=== PATIENT | female | born 1965 | race Caucasian/White ===

== ENCOUNTER 2022-09-16 12:58 | Outpatient (OUT) | payer OTHER, SELFPAY ==
--- NOTE | 2022-09-16 13:01 | MM_ITS ---
Patient: NANI ALEX Exam Date: 09/16/2022 : 1965 Gender:F Ordering : DR Rachele Payton M.D. Admission #: [id number] Family : Order #: [id number] CLICK HERE TO VIEW EXAM RADIOLOGY REPORT PROCEDURE: MM TOMOSYNTHESIS SCREENING BI COMPARISON: MG MAMM SCREEN 3D JAN CAD, 08/01/2021. MG MAMM SCREEN JAN W CAD, 12/29/2019. MG MAMM LT DIAG FU, 11/16/2018. MG MAMM JAN SCRN W CAD DIG, 08/20/2012. INDICATIONS: Screening Calculator Name NCI Breast Cancer Risk Assessment Tool 5 Year Breast Cancer Risk 2.90% Lifetime Breast Cancer Risk 15.10% Personal Breast Cancer No Personal Ovarian Cancer No Treatments None Family Cancers Niece with breast cancer at age 22; Mother with breast cancer at age 55; Niece with breast cancer at age 33; Grandmother-maternal with breast cancer at age 30; Aunt-maternal with breast cancer at age 40; Mother with ovarian cancer at age 68; Mother with kidney cancer at age 48. LOCATION: [facility] BREAST COMPOSITION: Scattered areas fibroglandular density. FINDINGS: DIAGNOSTIC CATEGORY 2--BENIGN FINDING: RIGHT BREAST: No significant suspicious finding. No significant change has occurred. LEFT BREAST: No significant suspicious finding. Stable benign-appearing lymph node anterior lower-inner quadrant. No significant change has occurred. RECOMMENDATIONS: ROUTINE MAMMOGRAM AND CLINICAL EVALUATION IN 12 MONTHS. PLEASE NOTE: A NORMAL MAMMOGRAM DOES NOT EXCLUDE THE POSSIBILITY OF BREAST CANCER. A CLINICALLY SUSPICIOUS PALPABLE LUMP SHOULD BE BIOPSIED. Dictated by: Ross Purvis M.D. on 09/17/2022 at 13:46 Approved by: Ross Purvis M.D. on 09/17/2022 at 13:57
== END 2022-09-16 12:59 | disposition home or self-care (01) ==
LOC: MAMMO 12:58
PROVIDERS: PCP Family Medicine; Visit Provider Family Medicine
DX: Z12.31 Encounter for screening mammogram for malignant neoplasm of breast (principal); Z80.3 Family history of malignant neoplasm of breast
CPT/HCPCS: 77063; 77067

== ENCOUNTER 2022-11-16 14:10 | Emergency (ER) | payer OTHER, SELFPAY ==
[2022-11-16 14:16] VITALS: BP 178/96; PULSE 107; RESP 18; TEMP 36.7; O2SAT 98; BMI 39.2
--- NOTE | 2022-11-16 14:34 | ED.FEMALEGU1 ---
HPI - Female Genitourinary General Chief complaint: Urogenital-Female Stated complaint: UTI-TROUBLE URINATING Time Seen by Provider: 11/16/22 14:28 Source: patient Mode of arrival: walk-in History of Present Illness HPI Narrative: 57-year-old female presents for frequency of urination. She's had this for a few days and she's been drinking great amount of water. She states after she urinates she feels like she has to urinate again shortly thereafter. No back pain or gross hematuria or dysuria. No fever vomiting or complaints of abdominal pain. She's never had a urinary tract infection. Related Data Previous Rx's Medication Instructions Recorded nitrofurantoin 100 mg PO BID 7 days #14 caps 11/16/22 monohydrate/macrocrystals 100 mg capsule (Macrobid) Allergies Allergy/AdvReac Type Severity Reaction Status Date / Time No Known Drug Allergies Allergy Verified 11/16/22 14:16 Review of Systems ROS Narrative review of systems Genitourinary Reports: urinary frequency Exam Narrative Exam Narrative: Nurses note and vital signs reviewed and patient is not hypoxic. General: The patient appears well and in no apparent distress. Patient is resting comfortably on cart. Skin: Warm, dry, no pallor noted. There is no rash noted. Head: Normocephalic, atraumatic Eye: Normal conjunctiva, no drainage Ears, Nose, Mouth, and Throat: oral mucosa is moist. Nares patent. Cardiovascular: Regular Rate and Rhythm Respiratory: Patient is in no distress, no accessory muscle use, lungs are clear to auscultation, no wheezing, rales or rhonchi Back: non-tender GI: often nontender Musculoskeletal: The patient has no evidence of calf tenderness, no pitting edema, symmetrical pulses noted bilaterally Neurological: A&O, normal speech Psychiatric: Cooperative Constitutional Vital Signs, click to edit/add: Last Vital Signs Temp 98.1 F 11/16/22 14:16 Pulse 107 H 11/16/22 14:16 Resp 18 11/16/22 14:16 BP 178/96 H 11/16/22 14:16 Pulse Ox 98 11/16/22 14:16 O2 Del Method Room Air 11/16/22 14:16 Course Vital Signs Vital signs: Vital Signs Temperature 98.1 F 11/16/22 14:16 Pulse Rate 107 H 11/16/22 14:16 Respiratory Rate 18 11/16/22 14:16 Blood Pressure 178/96 H 11/16/22 14:16 Pulse Oximetry 98 11/16/22 14:16 Oxygen Delivery Method Room Air 11/16/22 14:16 Temperature 98.1 F 11/16/22 14:16 Pulse Rate 107 H 11/16/22 14:16 Respiratory Rate 18 11/16/22 14:16 Blood Pressure 178/96 H 11/16/22 14:16 Pulse Oximetry 98 11/16/22 14:16 Oxygen Delivery Method Room Air 11/16/22 14:16 MDM - Female Genitourinary MDM Narrative Medical decision making narrative: urinalysis shows presence of urinary tract infection. Treatment diagnosis and follow-up were discussed with the patient. Lab Data Attestation: I reviewed the patient's lab results. Labs: Lab Results 11/16/22 Range/Units 14:25 Urine Color Lt. yellow (YELLOW) Urine Clarity Slightly cloudy A (CLEAR) Urine pH 5.5 (5.0-9.0) Ur Specific [place] 1.020 (1.005-1.025) Urine Protein Negative (NEG/TRACE) mg/dL Urine Glucose (UA) Negative (NEGATIVE) mg/dL Urine Ketones Negative (NEGATIVE) mg/dL Urine Occult Blood Large A (NEGATIVE) Urine Nitrite Negative (NEGATIVE) Urine Bilirubin Negative (NEGATIVE) Urine Urobilinogen 0.2 (0.2-1.0) EU/dL Ur Leukocyte Esterase Large A (NEGATIVE) Urine RBC 2-5 A (0-2) #/HPF Urine WBC 10-20 A (NONE SEEN) #/HPF Ur Squamous Epith Cells Few A (NONE/RARE) #/LPF Urine Crystals None seen (None Seen) #/HPF Urine Bacteria Small A (NONE SEEN) #/HPF Urine Casts None seen (NONE SEEN) #/LPF Urine Mucus None seen (NONE SEEN) Ur Culture Indicated? Yes Discharge Plan Discharge Chief Complaint: Urogenital-Female Clinical Impression: Urinary tract infection Patient Disposition: Home, Self-Care Time of Disposition Decision: 14:59 Condition: Good Mode of Transportation: Private Vehicle Prescriptions / Home Meds: New nitrofurantoin monohyd/m-cryst [Macrobid] 100 mg capsule 100 mg PO BID 7 Days Qty: 14 0RF Rx Instructions: must administer with a meal/food Instructions: Urinary Tract Infection in Women (ED) Stand Alone Forms: Portal Instructions Referrals: Rachele Payton MD [Primary Care Provider] - 1 week
[2022-11-16 14:45] LABS: Bilirubin Urine NEGATIVE (NEGATIVE); Blood Urine LARGE (NEGATIVE); Color Urine LT. YELLOW (YELLOW); Glucose Urine UA NEGATIVE (NEGATIVE); Ketones Urine NEGATIVE (NEGATIVE); Leukocyte Esterase Urine LARGE (NEGATIVE); Nitrite Urine NEGATIVE (NEGATIVE); Protein Urine NEGATIVE (NEG/TRACE); Urobilinogen Urine 0.2 EU/dL (0.2-1.0); pH Urine 5.5 (5.0-9.0)
[2022-11-16 14:52] LABS: Clarity Urine SLIGHTLY CLOUDY (CLEAR)
[2022-11-16 14:55] LABS: Bacteria Urine SMALL #/HPF (NONE SEEN); Cast Seen? NONE SEEN #/LPF (NONE SEEN); Crystals Seen? None Seen #/HPF (None Seen); Mucus Urine NONE SEEN (NONE SEEN); Squamous Epithelial Cell Urine FEW #/LPF (NONE/RARE)
[2022-11-16 14:56] LABS: Urine Culture Indicated YES
[2022-11-16 15:25] VITALS: BP 134/96
== END 2022-11-16 15:28 | disposition home or self-care (01) ==
PROVIDERS: Emergency Provider Emergency Medicine; PCP Family Medicine
DX: N39.0 Urinary tract infection, site not specified (principal)
CPT/HCPCS: 51798; 81001; 87086; 99283

== ENCOUNTER 2023-02-14 07:31 | Outpatient (OUT) | payer OTHER, SELFPAY ==
[2023-02-14 08:23] LABS: Thyroid Stimulating Hormone 2.634 uIU/mL (0.358-3.740)
[2023-02-14 09:03] LABS: Free T4 0.92 ng/dL (0.76-1.46)
== END 2023-02-14 07:32 | disposition home or self-care (01) ==
LOC: LAB 07:33
PROVIDERS: PCP Family Medicine; Visit Provider Family Medicine
DX: E03.9 Hypothyroidism, unspecified (principal)
CPT/HCPCS: 36415; 84439; 84443

== ENCOUNTER 2023-09-18 09:45 | Outpatient (OUT) | payer OTHER, SELFPAY ==
--- OUTSIDE RECORDS SUMMARY | 2023-09-18 09:51 | XMS_ITS | CCD ---
Author Organization [facility] Team Providers Care Horse Identifier Name Role Phone Jonas Aquino Unavailable JONAS AQUINO Admitting Unavailable JONAS AQUINO Attending Unavailable JAZMYN, DR RACHELE Bolaños Primary Care Unavailable Estuardo, DR Rea Consulting Unavailable JAZMYN, DR RACHELE Bolaños Admitting Unavailable JAZMYN, DR RACHELE Bolaños Primary Care Unavailable JAZMYN, DR RACHELE Bolaños Attending Unavailable JAZMYN, DR RACHELE Bolaños Consulting Unavailable Rachele Payton MD Rachele Payton Primary Care Provider DO Gino Sheth Attending Provider [phone] Gino Sheth Admitting Unavailable Gino Sheth Attending Unavailable Rachele Payton Primary Care Unavailable Jonas Aquino Admitting Unavailable Jonas Aquino Attending Unavailable Rachele Payton Primary Care Unavailable Allergies Allergy Classification Reported Allergen(s) Allergy Type Date of Onset Reaction(s) Facility (1 source) Triamcinolone Drug Allergy 12-31-19 15 [facility] Repository (11 sources) Triamcinolone Drug Allergy Unknown [facility] Other (6 sources) patient allergy list reviewed by nurse or physicia Propensity to adverse reactions 02-14-20 16 Comment:Done [facility] Other (6 sources) Allergies Reconciled Propensity to adverse reactions Unknown [facility] Other Medications Current Medications Medication Drug Class(es) Dates Sig (Normalized) Sig (Original) [id number] 60 actuat albuterol 0.09 mg/actuat metered dose inhaler (6 sources) beta2-Adrenergic Agonist Start: 01-27-2023 take 2 puff(s) by inhalation every four hours as needed Albuterol Sulfate HFA 108 (90 Base) MCG/ACT 2 puff Inhalation every 4 hrs prn Jan, Active Start: 01-27-2023 take 2 puff(s) by in halation every four hours as needed Albuterol Sulfate HFA 108 (90 Base) MCG/ACT 2 puff Inhalation every 4 hrs prn Jan, Active fexofenadine (1 source) Histamine-1 Receptor Antagonist Oumou Active 12 hr fexofenadine hydrochloride 60 mg / pseudoephedrine hydrochloride 120 mg extended release oral tablet (5 sources) alpha-Adrenergic Agonist, Histamine-1 Receptor Antagonist take 1 tablet by mouth every twelve hours Oumou-D Allergy & Congestion 60-120 MG 1 tablet as needed Orally Twice a day Active levothyroxine sodium 0.075 mg oral tablet (12 sources) l-Thyroxine take 1 tablet by mouth once daily in the morning Synthroid 75 MCG 1 tablet in the morning on an empty stomach Orally Once a day for 90 days Active take 1 tablet by adilene th once daily in the morning Synthroid 25 MCG 1 tablet in the morning on an empty stomach Orally Once a day for 90 days Active take 1 tablet by adilene th once daily in the morning Synthroid 25 MCG 1 tablet in the morning on an empty stomach Orally Once a day Active meloxicam 7.5 mg oral tablet (7 sources) Nonsteroidal Anti-inflammatory Drug Start: 07-25-2021 take 1 tablet by mouth every twenty-four hours Meloxicam 7.5 MG 1 tablet Orally Once a day for 30 day(s) Jul, Active Meloxicam 15 MG 1 tablet prn Active omeprazole 40 mg delayed release oral capsule (5 sources) Proton Pump Inhibitor Start: 04-15-2022 take 1 capsule by mouth once daily Omeprazole 40 MG 1 capsule 30 minutes before morning meal Orally Once a day for 30 days Mar, Active Completed/Discontinued Medications Medication Drug Class(es) Dates Sig (Normalized) Sig (Original) triamcinolone acetonide 40 mg/ml injectable suspension (20 sources) Corticosteroid Start: 07-25-2021 Kenalog-40 Jul, 40 mg Problems Active Problems Problem Classification Problem Date Documented Date Episodic/Chronic Esophageal disorders (12 sources) Gastroesophageal reflux disease without esophagitis; Translations: [Gastro-esophageal reflux disease without esophagitis] Chronic Osteoarthritis (17 sources) Primary gonarthrosis, bilateral; Translations: [Bilateral primary osteoarthritis of knee] Onset: 07-25-2021 Resolved: 07-25-2021 Chronic Other bone disease and musculoskeletal deformities (6 sources) Chondromalacia; Translations: [Chondromalacia, right knee] Episodic Other circulatory disease (6 sources) Elevated blood-pressure reading without diagnosis of hypertension; Translations: [Elevated blood-pressure reading, without diagnosis of hypertension] Episodic Other circulatory disease (1 source) Elevated blood-pressure reading, without diagnosis of hypertension Episodic Other nervous system disorders (6 sources) Carpal tunnel syndrome; Translations: [Carpal tunnel syndrome] Onset: 07-04-2014 Chronic Other non-traumatic joint disorders (2 sources) Pain in right knee; Translations: [PAIN IN RIGHT KNEE] Onset: 07-25-2021 Resolved: 07-25-2021 Episodic Other non-traumatic joint disorders (2 sources) Pain in left knee; Translations: [PAIN IN LEFT KNEE] Onset: 07-25-2021 Resolved: 07-25-2021 Episodic Other non-traumatic joint disorders (20 sources) Arthralgia of the lower leg; Translations: [Pain in left knee] Onset: 12-12-2014 Episodic Other nutritional; endocrine; and metabolic disorders (18 sources) Obesity; Translations: [Other obesity due to excess calories] Onset: 12-12-2014 Chronic Other nutritional; endocrine; and metabolic disorders (12 sources) Body mass index 30+ - obesity; Translations: [Body mass index (BMI) 39.0-39.9, adult] Chronic Other nutritional; endocrine; and metabolic disorders (1 source) Other obesity due to excess calories Onset: 07-25-2021 Resolved: 07-25-2021 Chronic Other nutritional; endocrine; and metabolic disorders (1 source) Body mass index (BMI) 39.0-39.9, adult Onset: 07-25-2021 Resolved: 07-25-2021 Chronic Other nutritional; endocrine; and metabolic disorders (6 sources) Body mass index 40+ - severely obese; Translations: [Body mass index (BMI) 40.0-44.9, adult] Chronic Other screening for suspected conditions (not mental disorders or infectious disease) (1 source) Encounter for screening mammogram for malignant neoplasm of breast; Translations: [ENC SCR MAMMO MALIG NEOPLASM BREAST] Onset: 08-04-2021 Episodic Other upper respiratory disease (6 sources) Allergic rhinitis; Translations: [Allergic rhinitis, unspecified] Onset: 07-02-2016 Chronic Other upper respiratory disease (1 source) Other diseases of vocal cords Episodic Other upper respiratory disease (1 source) Other diseases of vocal cords; Translations: [Other diseases of vocal cords] Onset: 05-27-2022 Episodic Other upper respiratory infections (6 sources) Chronic maxillary sinusitis; Translations: [Chronic maxillary sinusitis] Onset: 02-14-2016 Chronic Residual codes; unclassified (12 sources) Asymptomatic menopausal state; Translations: [Menopause] Onset: 08-04-2021 Episodic Residual codes; unclassified (1 source) Family history of malignant neoplasm of breast; Translations: [FAMILY HX MALIG NEOPLASM OF BREAST] Onset: 08-04-2021 Episodic Residual codes; unclassified (1 source) Family history of malignant neoplasm of ovary; Translations: [FAM HX MALIGNANT NEOPLASM OVARY] Onset: 08-04-2021 Episodic Residual codes; unclassified (1 source) Family history of malignant neoplasm of kidney; Translations: [FAM HX MALIGNANT NEOPLASM KIDNEY] Onset: 08-04-2021 Episodic Residual codes; unclassified (11 sources) Family history of breast cancer; Translations: [Family history of malignant neoplasm of breast] Episodic Residual codes; unclassified (6 sources) Flushing; Translations: [Flushing] Episodic Residual codes; unclassified (6 sources) Postmenopausal state; Translations: [Asymptomatic menopausal state] Episodic Spondylosis; intervertebral disc disorders; other back problems (6 sources) Low back pain; Translations: [Lumbago] Episodic Thyroid disorders (16 sources) Hypothyroidism, unspecified; Translations: [Hypothyroidism] Onset: 08-04-2021 Chronic Unclassified (1 source) M25.561 - Pain in right knee; Translations: [M25.561 - Pain in right knee] Onset: 07-25-2021 Past or Other Problems Problem Classification Problem Date Documented Da te Episodic/Chronic Other connective tissue disease (6 sources) Disorder of soft tissue; Translations: [Disorders of soft tissue, unspecified] Onset: 10-03-2014 Episodic Other upper respiratory infections (7 sources) Acute laryngitis; Translations: [Acute maxillary sinusitis] Onset: 02-14-2016 Episodic Residual codes; unclassified (6 sources) Edema; Translations: [Edema] Onset: 10-03-2014 Episodic Unclassified (1 source) Chronic cough R05.3 Results Test Name Value Interpretation Reference Range Facility CBC AUTO DIFFon 08-01-2021 BASO # 0.0 103/ul Normal 0.0-0.1 [facility] Comment on above: Performed By: #### C BC #### [facility] [address] [address] [address] Irene Rodriguez Basophils/100 WBC (Bld) 0.3 % Normal 0.2-2.0 [facility] Comment on above: Performed By: #### C BC #### [facility] [address] [address] [address] Irene Rodriguez EO # 0.1 103/ul Normal 0.0-0.7 [facility] Comment on above: Performed By: #### C BC #### [facility] [address] [place] [address] Dr. Irene Rodriguez Eosinophils/100 WBC (Bld) 1.1 % Normal 0.9-7.0 [facility] Comment on above: Performed By: #### C BC #### [facility] [address] [address] [address] Irene Rodriguez Erythrocyte distribution width (RBC) [Ratio] 13.9 % Normal 11.0-15.0 [facility] Comment on above: Performed By: #### C BC #### [facility] [address] [place] [address] Dr. Irene Rodriguez Hematocrit (Bld) [Volume fraction] 46.8 % Normal 36.0-48.0 [facility] Comment on above: Performed By: #### C BC #### [facility] [address] [address] [address] Irene Rodriguez Hemoglobin (Bld) [Mass/Vol] 15.1 g/dL Normal 12.0-16.0 [facility] Comment on above: Performed By: #### C BC #### [facility] [address] [address] [address] Irene Rodriguez IG # 0.17 10e3/ul Critically high 0.00-0.03 [facility] Comment on above: Performed By: #### C BC #### [facility] [address] [place] [address] Dr. Irene Rodriguez IG % 1.3 % Critically high 0.0-0.5 [facility] Comment on above: Performed By: #### C BC #### [facility] [address] [place] [address] Dr. Irene Rodriguez LYMPH # 2.3 103/ul Normal 1.2-3.8 [facility] Comment on above: Performed By: #### C BC #### [facility] [address] [place] [address] Dr. Irene Rodriguez Lymphocytes/100 WBC (Bld) 17.6 % Critically low 20.5-60.0 [facility] Comment on above: Performed By: #### C BC #### [facility] [address] [place] [address] Dr. Irene Rodriguez MANUAL DIFF REQ NO Normal [facility] Comment on above: Performed By: #### C BC #### [facility] [address] [place] [address] Dr. Irene Rodriguez MCH (RBC) [Entitic mass] 28.7 pg Normal 26.7-34.0 [facility] Comment on above: Performed By: #### C BC #### [facility] [address] [place] [address] Dr. Irene Rodriguez MCHC (RBC) [Mass/Vol] 32.3 g/dL Normal 29.9-35.2 [facility] Comment on above: Performed By: #### C BC #### [facility] [address] [place] [address] Dr. Irene Rodriguez MCV (RBC) [Entitic vol] 89.0 fL Normal 81.0-99.0 [facility] Comment on above: Performed By: #### C BC #### [facility] [address] [place] [address] Dr. Irene Rodriguez MONO # 0.6 103/ul Normal 0.3-0.8 [facility] Comment on above: Performed By: #### C BC #### [facility] [id number] [address] Irene Rodriguez Monocytes/100 WBC (Bld) 4.5 % Normal 1.7-12.0 [facility] Comment on above: Performed By: #### C BC #### [facility] [address] [address] [address] Irene Rodriguez NEUT # 9.9 103/ul Critically high 1.4-6.5 [facility] Comment on above: Performed By: #### C BC #### [facility] [address] [address] [address] Irene Rodriguez Neutrophils/100 WBC (Bld) 75.2 % Critically high 43.0-75.0 [facility] Comment on above: Performed By: #### C BC #### [facility] [address] [place] [address] Dr. Irene Rodriguez Platelet mean volume (Bld) [Entitic vol] 10.5 fL Normal 9.5-13.5 [facility] Comment on above: Performed By: #### C BC #### [facility] [address] [place] [address] Dr. Irene Rodriguez PLT 282 103/ul Normal 150-450 [facility] Comment on above: Performed By: #### C BC #### [facility] [address] [place] [address] Dr. Irene Rodriguez RBC 5.26 106/ul Normal 4.20-5.40 [facility] Comment on above: Performed By: #### C BC #### [facility] [address] [place] [address] Dr. Irene Rodriguez WBC 13.2 103/ul Critically high 4.0-11.0 [facility] Comment on above: Performed By: #### C BC #### [facility] [address] [place], [place] [id number] Dr. Irene Rodriguez FREE T4on 08-01-2021 Free T4 [Mass/Vol] 1.09 ng/dL Normal 0.76-1.46 [facility] Comment on above: Performed By: #### F T4 #### [facility] [address] [address] [address] Irene Rodriguez LIPID PROFILEon 08-01-2021 CHOL-HDL RATIO NORM SEE BELOW Normal [facility] Comment on above: Result Comment: 3.3 - 4.4 LOW RISK 4.4 - 7.1 AVERAGE RISK 7.1 - 11.0 MODERATE RISK >11.0 HIGH RISK Performed By: #### L IPID, TSH, CMP #### [facility] [address] [address] [address] Irene Rodriguez Cholesterol [Mass/Vol] 179 mg/dL Normal <=200 [facility] Comment on above: Performed By: #### L IPID, TSH, CMP #### [facility] [address] [place] [address] Dr. Irene Rodriguez Cholesterol in HDL [Mass/Vol] 48 mg/dL Normal 40-60 [facility] Comment on above: Performed By: #### L IPID, TSH, CMP #### [facility] [address] [place] [address] Dr. Irene Rodriguez Cholesterol in LDL [Mass/Vol] 109.2 mg/dL Normal [facility] Comment on above: Performed By: #### L IPID, TSH, CMP #### [facility] [address] [place] [address] Dr. Irene Rodriguez Cholesterol.total/ Cholesterol in HDL [Mass ratio] 3.7 {ratio} Normal [facility] Comment on above: Performed By: #### L IPID, TSH, CMP #### [facility] [address] [place] [address] Dr. Irene Rodriguez HDL NORMAL > or = 60 mg/dl - LOW CARDIOVASCULAR RISK <40 mg/dl - HIGH CARDIOVASCULAR RISK Normal [facility] Comment on above: Performed By: #### L IPID, TSH, CMP #### [facility] [address] [place] [address] Dr. Irene Rodriguez LDL CALC NORMAL SEE BELOW Normal [facility] Comment on above: Result Comment: <100 mg/dl OPTIMAL 100 - 129 mg/dl NEAR OR ABOVE OPTIMAL 130 - 159 mg/dl BORDERLINE HIGH 160 - 189 mg/dl HIGH >190 mg/dl VERY HIGH Performed By: #### L IPID, TSH, CMP #### [facility] [address] [place], [place] [address] Dr. Irene Rodriguez Triglyceride [Mass/Vol] 109 mg/dL Normal <=150 [facility] Comment on above: Performed By: #### L IPID, TSH, CMP #### [facility] [address] [place], [place] [address] Dr. Irene Rodriguez VLDL CALC 21.8 mg/dL Normal [facility] Comment on above: Performed By: #### L IPID, TSH, CMP #### [facility] [address] [place], [place] [address] Dr. Irene Rodriguez MG MAMM SCREEN 3D JAN CADon 08-01-2021 MG MAMM SCREEN 3D JAN CAD Patient: CHRISTINA ALEX Exam Date: 08/01/2021 : 1965 Gender:F Ordering : DR RACHELE PAYTON M.D. Admission #: [id number] Family : Order #: [id number] CLICK HERE TO VIEW EXAM RADIOLOGY REPORT PROCEDURE: MAMMOGRAM SCREENING 3D BILATERAL CAD COMPARISON: MG MAMM LT DIAG FU, 11/16/2018. MG MAMM SCREEN JAN W CAD, 12/29/2019. INDICATIONS: Screening mammography Calculator Name NCI Breast Cancer Risk Assessment Tool 5 Year Breast Cancer Risk 2.80% Lifetime Breast Cancer Risk 15.50% Personal Breast Cancer No Personal Ovarian Cancer No Treatments None Family Cancers Niece with breast cancer at age 22; Mother with breast cancer at age 55; Niece with breast cancer at age 33; Grandmother-maternal with breast cancer at age 30; Aunt-maternal with breast cancer at age 40; Mother with ovarian cancer at age 68; Mother with kidney cancer at age 48. LOCATION: [facility] BREAST COMPOSITION: Scattered areas fibroglandular density. FINDINGS: DIAGNOSTIC CATEGORY 1--NEGATIVE. NO CHANGE FROM COMPARISON ASSESSMENT. Scattered benign-appearing nodules are present. Scattered benign-appearing calcifications are present. Scattered benign-appearing lymph nodes are present. RIGHT BREAST: No significant suspicious finding. LEFT BREAST: No significant suspicious finding. RECOMMENDATIONS: ROUTINE MAMMOGRAM AND CLINICAL EVALUATION IN 12 MONTHS. PLEASE NOTE: A NORMAL MAMMOGRAM DOES NOT EXCLUDE THE POSSIBILITY OF BREAST CANCER. A CLINICALLY SUSPICIOUS PALPABLE LUMP SHOULD BE BIOPSIED. Dictated by: Javed Albarado MD on 08/01/2021 at 10:15 Approved by: Javed Albarado MD on 08/01/2021 at 10:17 Normal [facility] PROF 14(COMP METB)on 022 Albumin [Mass/Vol] 3.1 g/dL Critically low 3.4-5.0 [facility] Comment on above: Performed By: #### L IPID, TSH, CMP #### [facility] [address] [place] [address] Dr. Irene Rodriguez Albumin/Globulin [Mass ratio] 0.8 {ratio} Normal [facility] Comment on above: Performed By: #### L IPID, TSH, CMP #### [facility] [address] [place] [address] Dr. Irene Rodriguez ALP [Catalytic activity/Vol] 92 U/L Normal 46-116 [facility] Comment on above: Performed By: #### L IPID, TSH, CMP #### [facility] [address] [place] [address] Dr. Irene Rodriguez ALT [Catalytic activity/Vol] 22 U/L Normal 14-59 [facility] Comment on above: Performed By: #### L IPID, TSH, CMP #### [facility] [address] [place] [address] Dr. Irene Rodriguez Anion gap [Moles/Vol] 10.3 mmol/L Normal [facility] Comment on above: Performed By: #### L IPID, TSH, CMP #### [facility] [address] [place] [address] Dr. Irene Rodriguez AST [Catalytic activity/Vol] 9 U/L Critically low 15-37 [facility] Comment on above: Performed By: #### L IPID, TSH, CMP #### [facility] [address] [place] [address] Dr. Irene Rodriguez Bilirubin [Mass/Vol] 0.6 mg/dL Normal 0.2-1.0 [facility] Comment on above: Performed By: #### L IPID, TSH, CMP #### [facility] [address] [address] [address] Irnee Rodriguez Calcium [Mass/Vol] 8.7 mg/dL Normal 8.5-10.1 [facility] Comment on above: Performed By: #### L IPID, TSH, CMP #### [facility] [address] [place] [address] Dr. Irene Rodriguez Chloride [Moles/Vol] 106 mmol/L Normal 98-107 [facility] Comment on above: Performed By: #### L IPID, TSH, CMP #### [facility] [address] [place] [address] Dr. Irene Rodriguez CO2 [Moles/Vol] 26.7 mmol/L Normal 21.0-32.0 [facility] Comment on above: Performed By: #### L IPID, TSH, CMP #### [facility] [address] [place] [address] Dr. Irene Rodriguez Creatinine [Mass/Vol] 0.84 mg/dL Normal 0.55-1.02 [facility] Comment on above: Performed By: #### L IPID, TSH, CMP #### [facility] [address] [place] [address] Dr. Irene Rodriguez EGFR-AF IRANIAN >60 Normal >=60 [facility] Comment on above: Performed By: #### L IPID, TSH, CMP #### [facility] [address] [place] [address] Dr. Irene Rodriguez EGFR-NON AF IRANIAN >60 Normal >=60 [facility] Comment on above: Performed By: #### L IPID, TSH, CMP #### [facility] [address] [place] [address] Dr. Irene Rodriguez Globulin (S) [Mass/Vol] 4.1 g/dL Normal [facility] Comment on above: Performed By: #### L IPID, TSH, CMP #### [facility] [address] [place] [address] Dr. Irene Rodriguez Glucose [Mass/Vol] 96 mg/dL Normal 74-106 [facility] Comment on above: Performed By: #### L IPID, TSH, CMP #### [facility] [address] [place] [address] Dr. Irene Rodriguez Potassium [Moles/Vol] 4.0 mmol/L Normal 3.5-5.1 [facility] Comment on above: Performed By: #### L IPID, TSH, CMP #### [facility] [address] [place] [address] Dr. Irene Rodriguez Protein [Mass/Vol] 7.2 g/dL Normal 6.4-8.2 [facility] Comment on above: Performed By: #### L IPID, TSH, CMP #### [facility] [address] [place] [address] Dr. Irene Rodriguez Sodium [Moles/Vol] 139 mmol/L Normal 136-145 [facility] Comment on above: Performed By: #### L IPID, TSH, CMP #### [facility] [address] [place] [address] Dr. Irene Rodriguez Urea nitrogen [Mass/Vol] 17.0 mg/dL Normal 7.0-18.0 [facility] Comment on above: Performed By: #### L IPID, TSH, CMP #### [facility] [address] [place] [address] Dr. Irene Rodriguez Urea nitrogen/Creatinin e [Mass ratio] 20.2 mg/mg Normal [facility] Comment on above: Performed By: #### L IPID, TSH, CMP #### [facility] [address] [place] [address] Dr. Irene Rodriguez TSHon 08-01-2021 TSH 3.517 uIU/mL Normal 0.358-3.740 [facility] Comment on above: Performed By: #### L IPID, TSH, CMP #### [facility] [address] [place] [address] Dr. Irene Rodriguez TSH RANGE SEE BELOW Normal [facility] Comment on above: Result Comment: <0.3 4 UIU/ml HYPERTHYROID 0.34-5.60 UIU/ml EUTHYROID >5.60 UIU/ml HYPOTHYROID Performed By: #### L IPID, TSH, CMP #### [facility] [address] [address] [address] Irene Rodriguez XR DEXA BONE DENSITYon 08-01 XR DEXA BONE DENSITY EXAMINATION: XR DEXA BONE DENSITY, 08/01/2021 7:55 AM EDT HISTORY: Menopause present COMPARISON: None. TECHNIQUE: Dual-energy X-ray absorptiometry (DEXA) bone density study performed for the axial skeleton. FINDINGS: Bone mineral density AP spine L1-L4 measures 1.240 g/sq cm. T score 0.5. WHO classification: Normal. Lowest bone mineral density right femoral trochanter measures 0.840 g/sq cm. T score -0.1. WHO classification: Normal IMPRESSION: Normal bone mineral density. Low fracture risk Electronically authenticated by: JAVED ALBARADO Date: 2021-08-01 16:12 Normal [facility] XR knee BI 3Von 07-25-2021 XR knee BI 3V [facility] [employer] Other XR knee BI 3V [facility] [employer] Other XR knee BI 3V [address] [place] [address] [employer] Other XR knee BI 3V [address] [employer] Other XR knee BI 3V XRay Report [facility] Other XR knee BI 3V Signed [employer] Other XR knee BI 3V Patient: Christina Alex MR#: [id number] [facility] [employer] Other XR knee BI 3V 504 [facility] [employer] Other XR knee BI 3V : 1965 Acct:[id number] [employer] Other XR knee BI 3V Age/Sex: 56 / F ADM Date: 07/25/21 [facility] [employer] Other XR knee BI 3V Loc: [facility] Room: Type: REG CLI [facility] [employer] Other XR knee BI 3V Attending Dr: Jonas Aquino DO [employer] Other XR knee BI 3V Ordering Provider: Jonas Aquino DO [facility] Other XR knee BI 3V Date of Service: 07/25/21 [facility] Other XR knee BI 3V XR/XR knee BI 3V - NOT FOR ER USE: PAIN [facility] Other XR knee BI 3V Copies to: Jonas Aquino DO [facility] Other XR knee BI 3V BILATERAL KNEES - 3 views each [facility] Other XR knee BI 3V CLINICAL HISTORY: Bilateral knee pain for 2 weeks. [employer] Other XR knee BI 3V COMPARISON: None. [employer] Other XR knee BI 3V FINDINGS: Right knee: No significant joint effusion. No acute bony process. Moderate degenerative [facility] Other XR knee BI 3V changes with medial weightbearing joint space narrowing. [employer] Other XR knee BI 3V Left knee: No significant knee joint effusion. No acute bony process. Moderate degenerative changes [employer] Other XR knee BI 3V with medial weightbearing joint space narrowing. [employer] Other XR knee BI 3V XR/XR knee BI 3V - NOT FOR ER USE [employer] Other XR knee BI 3V IMPRESSION: [facility] [employer] Other XR knee BI 3V MODERATE DEGENERATIVE CHANGES OF BOTH KNEES WITHOUT ACUTE BONY PROCESS. [facility] Other XR knee BI 3V Impression dictated by: Jose J Frye Jr.OShmuel07/25/2021 9:58 AM [facility] Other XR knee BI 3V Dictation Location: RADIO-PC-11 [employer] Other XR knee BI 3V Transcribed By: PWS 07/25/21 0957 [employer] Other XR knee BI 3V Dictated By: Mau Hill Jr, DO 07/25/21 0954 [employer] Other XR knee BI 3V Signed By: [facility] Other XR knee BI 3V 07/25/[address] [facility] [employer] Other XR knee BI 3V - NOT FOR ER U Yaima 07-25-2021 XR knee BI 3V - NOT FOR ER USE [facility] [place] [address] [place] [address] XRay Report Signed Patient: Christina Alex MR#: [id number] : 1965 Acct:[id number] Age/Sex: 56 / F ADM Date: 07/25/21 Loc: [facility] Room: Type: [facility] Attending Dr: Jonas Aquino DO Ordering Provider: Jonas Aquino DO Date of Service: 07/25/21 XR/XR knee BI 3V - NOT FOR ER USE: PAIN Copies to: Jonas Aquino DO BILATERAL KNEES - 3 views each CLINICAL HISTORY: Bilateral knee pain for 2 weeks. COMPARISON: None. FINDINGS: Right knee: No significant joint effusion. No acute bony process. Moderate degenerative changes with medial weightbearing joint space narrowing. Left knee: No significant knee joint effusion. No acute bony process. Moderate degenerative changes with medial weightbearing joint space narrowing. XR/XR knee BI 3V - NOT FOR ER USE IMPRESSION: MODERATE DEGENERATIVE CHANGES OF BOTH KNEES WITHOUT ACUTE BONY PROCESS. Impression dictated by: Mau Hill Jr., D.O.07/25/2021 9:58 AM Dictation Location: RADIO-everyArt-11 Transcribed By: MARY ANN 07/25/21 0958 Dictated By: Mau Hill Jr, DO 07/25/21 0954 Signed By: 07/25/21 0958 Normal [facility] Vital Signs Date Time Vital Sign Value Performing Clinician Facility 12-01-2023 11:30-0500 Body height 168.91 cm Rachele Payton Other [facility] Other 01-24-2023 11:30-0500 Body mass index (BMI) [Ratio] 44.13 kg/m2 Rachele Payton Other [facility] Other 01-24-2023 11:30-0500 Body weight 125.92 kg Rachele Payton Other [facility] Other 01-24-2023 11:30-0500 Diastolic blood pressure 81 mm[Hg] Rachele Payton Other [facility] Other 01-24-2023 11:30-0500 SaO2% (BldA) [Mass fraction] 97 % Rachele Payton Other [facility] Other 01-24-2023 11:30-0500 Systolic blood pressure 137 mm[Hg] Rachele Payton Other [facility] Other 04-15-2022 08:30-0500 Body height 168.91 cm Rachele Payton Other [facility] Other 04-15-2022 08:30-0500 Body mass index (BMI) [Ratio] 42.44 kg/m2 Rachele Payton Other [facility] Other 04-15-2022 08:30-0500 Body weight 121.11 kg Rachele Payton Other [facility] Other 04-15-2022 08:30-0500 Diastolic blood pressure 88 mm[Hg] Rachele Payton Other [facility] Other 04-15-2022 08:30-0500 SaO2% (BldA) [Mass fraction] 97 % Rachele Jazmyn Other [facility] Other 04-15-2022 08:30-0500 Systolic blood pressure 130 mm[Hg] Rachele Jazmyn Other [facility] Other 07-25-2021 09:30-0400 Body height 170.18 cm Jonas Aquino Other [facility] Other 07-25-2021 09:30-0400 Body mass index (BMI) [Ratio] 39.15 kg/m2 Jonas Aquino Other [facility] Other 07-25-2021 09:30-0400 Body weight 113.4 kg Jonas Aquino Other [facility] Other Encounters Encounter Date Encounter Type Care Provider Facility Start: 02-20-2023 End: 02-20-2023 ambulatory Rachele Payton Other [facility] Other Start: 02-20-2023 Telephone encounter Rachele Jazmyn [facility] Start: 02-12-2023 End: 02-12-2023 ambulatory Rachele Jazmyn Other [facility] Other Start: 02-12-2023 Telephone encounter Rachele Jazmyn [facility] Start: 02-11-2023 End: 02-11-2023 ambulatory Rachele Jazmyn Other [facility] Other Start: 02-11-2023 Telephone encounter Rachele Jazmyn [facility] Start: 02-03-2023 End: 02-03-2023 ambulatory Rachele Payton Other [facility] Other Start: 02-03-2023 Telephone encounter Rachele Jazmyn [facility] Start: 01-24-2023 End: 01-24-2023 ambulatory Rachele Payton Other [facility] Other Start: 01-24-2023 Encounter by aleida Payton [facility] Start: 01-24-2023 Office outpatient vi sit 15 minutes Rachele Payton [facility] Start: 05-27-2022 End: 05-27-2022 ambulatory Gino Sheth Facility:[facility] Start: 05-27-2022 End: 05-27-2022 ambulatory MD Rachele Payton Work Phone: [facility] Work Phone: Start: 05-27-2022 End: 05-27-2022 Discharged Recurring MD Rachele Payton Work Phone: [facility] [facility] Start: 05-23-2022 End: 05-23-2022 ambulatory Rachele Payton Other [facility] Other Start: 05-23-2022 Telephone encounter Rachele Payton [facility] Start: 05-21-2022 End: 05-21-2022 ambulatory Rachele Payton Other [facility] Other Start: 05-21-2022 Telephone encounter Rachele Jazmyn [facility] Start: 04-17-2022 End: 04-17-2022 ambulatory Rachele Payton Other [facility] Other Start: 04-17-2022 Telephone encounter Rachele Payton [facility] Start: 04-15-2022 End: 04-15-2022 ambulatory Rachele Payton Other [facility] Other Start: 04-15-2022 Office outpatient vi sit 15 minutes Rachele Payton [facility] Start: 03-18-2022 (Televisit) Televisit Rachele Grande [facility] Start: 03-18-2022 End: 03-18-2022 ambulatory Rachele Payton Other [facility] Other Start: 08-04-2021 Encounter for genera l adult medical examination without abnormal findings DR RACHELE PAYTON [facility] Start: 08-01-2021 End: 09-21-2021 ambulatory JONAS AQUINO Facility:[facility] Start: 08-01-2021 End: 08-02-[address] Javed Albarado Facility:[facility] Start: 08-01-2021 End: 08-02-2021 Encounter for general adult medical examination without abnormal findings DR Javed Albarado Facility:[facility] Start: 07-27-2021 Adult health examination Marah Payton Other [facility] Other Start: 07-27-2021 Gynecological examin ation normal Rachele Payton Other [facility] Other Start: 07-25-2021 Office outpatient ne w 45 minutes Jonas Aquino [facility] Start: 07-25-2021 End: 07-25-2021 ambulatory Jonas Aquino [facility] Other Procedures Date Procedure Procedure Detail Performing Clinician Screening for malign ant neoplasm of breast Rachele Payton Other Screening for malign ant neoplasm of colon Rachele Payton Other Immunizations Immunization Date Immunization Notes Care Provider Fa cilirufus 01-03-2018 influenza virus vaccine, split virus (incl. purified surface antigen) Rachele Payton Other [facility] Other 12-17-2016 tetanus and diphther ia toxoids, adsorbed, preservative free, for adult use (5 Lf of tetanus toxoid and 2 Lf of diphtheria toxoid) Rachele Payton Other [facility] Other 07-08-2016 diphtheria, tetanus toxoids and acellular pertussis vaccine, unspecified formulation Rachele Payton Other [facility] Other 12-11-2015 influenza virus vaccine, split virus (incl. purified surface antigen) Rachele Payton Other [facility] Other 01-22-2015 influenza virus vaccine, split virus (incl. purified surface antigen) Rachele Jazmyn Other [facility] Other Payers Date Payer Category Payer Self-pay [id number] 1965 Unknown [id number] [id number] [id number] 1965 Unknown [id number] 2.16.84 [id number] 1961 Unknown [id number] 2. [id number] Unknown [id number] 2.16.8 [id number] Unknown [id number] 2.16.8 [id number] Social History Date Type Detail Facility Sex Assigned At [facility] Other Start: 1965 Sex Assigned At Female F [facility] Evaluation note 02-11-2023 Note Date & Type Note Facility 02-11-2023 Evaluation note Encounter Date Diagnosis Assessment Notes Jan, Hypothyroidism, unspecified type (ICD-10 - E03.9) [facility] Other Evaluation note 01-24-2023 Note Date & Type Note Facility 01-24-2023 Evaluation note Encounter Date Diagnosis Assessment Notes Jan, Chronic cough (ICD-10 - R05.3) Discussed cough and hoarseness related to cold weather. WIll trial inhaler prior to exposure to cold weather. Jan, Elevated blood pressure reading (ICD-10 - R03.0) Will monitor bp through next week and call w an update. Discussed multiple stressors in life right now that are likely contributing to her elevated bp reading. [facility] Other Evaluation note 04-15-2022 Note Date & Type Note Facility 04-15-2022 Evaluation note Encounter Date Diagnosis Assessment Notes Mar, Gastroesophageal reflux disease without esophagitis (ICD-10 - K21.9) Add med. 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 [facility] Other Evaluation note 03-18-2022 Note Date & Type Note Facility 03-18-2022 Evaluation note Encounter Date Diagnosis Assessment Notes Feb, Laryngitis (ICD-10 - J04.0) 3 weeks of acute laryngitis. Patient requests referral to Dr. Sheth if her symptoms do not improve. [facility] Other Evaluation note 07-25-2021 Note Date & Type Note Facility 07-25-2021 Evaluation note Encounter Date Diagnosis Assessment Notes Jul, Pain in right knee (ICD-10 - M25.561) Jul, Primary osteoarthritis of both knees (ICD-10 - M17.0) Christina presents with bilateral knee DJD. At this juncture we have discussed the findings and diagnosis as well as personally reviewed appropriate imaging and performed interpretation of related testing and examination with the patient in office today. Prior medical notes from Dr. Payton and history have been reviewed. Today we have discussed degenerative joint disease of the knee and its treatment. Imaging was discussed and explained to the patient. We discussed recommended conservative therapies including physical therapy, anti-inflammatory medications, and weight loss strategies. We also discussed other treatment options including cortisone injections, Visco supplementation injections which are options for treatment. I have laid out the course of knee DJD including the end-stage treatment of total joint arthroplasty. The patient recognizes and understands our options and goals and we will move forward with our treatment. Today we have initiated conservative treatment and have sent in prescription for meloxicam. Have also recommended PT and weight loss. She also like to proceed with cortisone injection today and under sterile technique patient's bilateral knees were injected via the inferolateral portal with 4 cc Marcaine 1 cc of Kenalog, she tolerated this well. I will see them back as needed. The patient has been involved in our cooperative treatment plan and agrees to move forward with treatment at this time. The patient is suffering from degenerative arthritis involving the knee. We discussed the conservative treatment options which can be beneficial in relieving pain, including gentle non-impact motion exercise and non-steroidal anti-inflammat ory medication. We discussed the use of occasional cortisone injections that can provide pain relief as well as hyaluronan lubricant injection. Patient given order for physical therapy. We performed a marcaine / kenalog cortisone injection into the bilateral knee joint under sterile technique. Patient tolerated the injection well without adverse reaction. Patient given [employer] information handout. Prescription for meloxicam sent into patients pharmacy Jul, Pain in left knee (ICD-10 - M25.562) Jul, Other obesity due to excess calories (ICD-10 - E66.09) Jul, Body mass index [BMI] 39.0-39.9, adult (ICD-10 - Z68.39) Today we discussed obesity. We discussed the range of BMI and the patient's BMI of 39. We discussed weight loss strategies through increased physical activity as well as decrease caloric intake. We offered referral for bariatric services. Our discussion is limited to 5 minutes. Jul, Other See orders for this visit as documented in the electronic medical record. [facility] Other Evaluation note Note Date & Type Note Facility Evaluation note No Information [employer] Other Evaluation note Note Date & Type Note Facility Evaluation note No assessment information [facility] Work Phone: History general Narrative - Reported Note Date & Type Note Facility History general Narrative - Reported Type Medical History Hypothyroidism Surgical History arthroscopic knee surgery right 2015 Surgical History carpal tunnel release bilateral 2014 Surgical History hysterectomy 2004 Surgical History plantar fasciotomy 2010 Surgical History tonsillectomy and adenoidectomy 1982 Surgical History x2 [facility] Other History general Narrative - Reported Note Date & Type Note Facility History general Narrative - Reported Type Medical History Arthritis of both knees Medical History Obesity due to excess calories Medical History Adult body mass index 39.0-39.9 Medical History Family history of ma lignant neoplasm of breast Medical History Acute pain of left knee Medical History Hypothyroidism Medical History Menopause Medical History Spasmatic dysphonia Surgical History arthroscopic knee surgery right 2016 Surgical History carpal tunnel release bilateral 2015 Surgical History hysterectomy 2004 Surgical History plantar fasciotomy 2010 Surgical History tonsillectomy and adenoidectomy 1982 Surgical History x2 Hospitalization History SEE SURGICAL HX [facility] Other Summary Purpose Family History No Family History Records FoundNo Family History Records Found Advance Directives Advance Directive Response Recorded Date/ Time Advance Directives No July 25 10:23am Reason for Referral Reason 03/20/22 Call Mina Shelton [phone] - Christina can't talk at all! Diagnosis 1 Laryngitis (J04.0) Referral Organization [facility] Referring Provider First Name Rachele Referring Provider Last Name Jazmyn Referring Provider Specialty Family Medi cine Referred Organization [facility] Referred Provider Gino Sheth Referred Address ,[place], [place],[address] Referred Provider Specialty Otolaryngolo gy Referral Priority Routine Referral Appointment Date 2022-03-20 General Notes Steffany Moraes 10:46:08 AM >received today, CALL MINA TO SCHEDULE!! Steffany Moraes 03/19/2022 10:47:47 AM >notes locked, ins card attached, referral faxed P2P Steffany Moraes 03/26/2022 09:34:04 AM >faxed first attempt letter Steffany Moraes 04/02/2022 03:16:41 PM >pt seen on 03/20 and 04/01. 03/20 note in chart and reviewed out. closing referral at this time Chief Complaint and Reason for Visit Chief Complaint J38.3 Additional Source Comments REASON FOR VISIT (unrecogniz ed section and content) Bilateral Knee PainSickmessa gediscussion about her voiceREFILLRefillInhalerHigh BPbpsrefillrefillthyroid labs INFORMATION SOURCE (unrecogn ized section and content) DATE CREATED AUTHOR 09/27/2021 [facility] DATE CREATED AUTHOR AUTHOR'S ORGANIZ ATION 06/01/2022 [facility] Care Teams (unrecognized sec tion and content) Team Status: Active Member Role Status Dates Rachele Payton MD Primary Care Provider Active Team Status: Inactive Member Role Status Dates Rachele Payton MD Primary Care Provider Active Gino Sheth DO Attending Provider Active Goals (unrecognized section and content) Goals may be documented in a n alternate section FOR RECORDS PERTAINING TO PATIENTS WHO ARE OR HAVE BEEN ENROLLED IN A CHEMICAL DEPENDENCY/SUBSTANCEABUSE PROGRAM, SOME INFORMATION MAY BE OMITTED. This clinical summary was aggregated from multiple sources. Caution should be exercised in using it in the provision of clinical care. This summary normalizes information from multiple sources, and as a consequence, information in this document may materially change the coding, format and clinical context of patient data. In addition, data may be omitted in some cases. CLINICAL DECISIONS SHOULD BE BASED ON THE PRIMARY CLINICAL RECORDS. [facility]. provides no warranty or guarantee of the accuracy or completeness of information in this document.
--- NOTE | 2023-09-18 10:02 | MM_ITS ---
Patient Name: NANI ALEX MR#: [id number] : 1965 Exam Date: 09/18/2023 Ordering Doctor: DR Rachele Payton M.D. RADIOLOGY REPORT PROCEDURE: MM TOMOSYNTHESIS SCREENING BI COMPARISON: MG MAMM SCREEN 3D JAN CAD, 08/01/2021. MM TOMOSYNTHESIS SCREENING BI, 09/16/2022. INDICATIONS: Screening Calculator Name NCI Breast Cancer Risk Assessment Tool 5 Year Breast Cancer Risk 3.00% Lifetime Breast Cancer Risk 14.80% Personal Breast Cancer No Personal Ovarian Cancer No Treatments None Family Cancers Niece with breast cancer at age 22; Mother with breast cancer at age 55; Niece with breast cancer at age 33; Grandmother-maternal with breast cancer at age 30; Aunt-maternal with breast cancer at age 40; Mother with ovarian cancer at age 68; Mother with kidney cancer at age 48. LOCATION: [facility] BREAST COMPOSITION: There are scattered areas of fibroglandular density. FINDINGS: DIAGNOSTIC CATEGORY 0--INCOMPLETE: NEED ADDITIONAL IMAGING EVALUATION. Scattered benign-appearing nodules are present. Scattered benign-appearing calcifications are present. Scattered benign-appearing lymph nodes are present. RIGHT BREAST: No significant suspicious finding. LEFT BREAST: Increase in size of a well-circumscribed lobular 1.4 x 1.3 by 1.7 cm nodule lower inner quadrant, anterior breast. Spot compression and ultrasound follow-up required. RECOMMENDATIONS: ADDITIONAL MAMMOGRAPHIC VIEWS REQUIRED: LEFT BREAST - spot compression ULTRASOUND: LEFT BREAST PLEASE NOTE: A NORMAL MAMMOGRAM DOES NOT EXCLUDE THE POSSIBILITY OF BREAST CANCER. A CLINICALLY SUSPICIOUS PALPABLE LUMP SHOULD BE BIOPSIED. Dictated by: Álvaro Marte MD on 09/18/2023 at 10:50 Approved by: Álvaro Marte MD on 09/18/2023 at 10:53
[2023-09-18 10:20] LABS: Basophils Percent Auto 0.4 % (0.2-2.0); Eosinophils Absolute Auto 0.1 10^3/uL (0.0-0.7); Eosinophils Percent Auto 1.4 % (0.9-7.0); Hematocrit 43.6 % (36.0-48.0); Immature Granulocytes Abs Auto 0.06 10^3/uL (0.00-0.03); Immature Granulocytes Pct Auto 0.6 % (0.0-0.5); Lymphocytes Absolute Auto 2.1 10^3/uL (1.2-3.8); Lymphocytes Percent Auto 20.4 % (20.5-60.0); Mean Corpuscular HGB Conc 32.1 g/dL (29.9-35.2); Mean Corpuscular Hemoglobin 29.1 pg (26.7-34.0); Mean Corpuscular Volume 90.6 fL (81.0-99.0); Mean Platelet Volume 10.6 fL (9.5-13.5); Monocytes Absolute Auto 0.6 10^3/uL (0.3-0.8); Monocytes Percent Auto 5.9 % (1.7-12.0); Neutrophils Absolute Auto 7.2 10^3/uL (1.4-6.5); Neutrophils Percent Auto 71.3 % (43.0-75.0); Platelet Count 257 10^3/uL (150-450); Red Blood Count 4.81 10^6/uL (4.20-5.40); Red Cell Distribution Width 13.7 % (11.0-15.0); White Blood Count 10.1 10^3/uL (4.0-11.0)
[2023-09-18 11:30] LABS: Alanine Aminotransferase 21 U/L (14-59); Albumin Globulin Ratio 0.8; Albumin Level 3.2 g/dL (3.4-5.0); Alkaline Phosphatase 98 U/L (46-116); Anion Gap 14.2; Aspartate Amino Transferase 14 U/L (15-37); BUN Creatinine Ratio 16.2; Bilirubin Total 0.6 mg/dL (0.2-1.0); Calcium 9.1 mg/dL (8.5-10.1); Carbon Dioxide 25.9 mmol/L (21.0-32.0); Chloride 105 mmol/L (98-107); Chol HDL Ratio 3.7; Cholesterol 180 mg/dL (<=200); Estimated GFR (African America >60 (>=60); Estimated GFR (Non-African Ame >60 (>=60); Globulin 4.1 g/dL; Glucose 98 mg/dL (74-106); HDL Cholesterol 49 mg/dL (40-60); Potassium 4.1 mmol/L (3.5-5.1); Sodium 141 mmol/L (136-145); Thyroid Stimulating Hormone 3.034 uIU/mL (0.358-3.740); Total Protein 7.3 g/dL (6.4-8.2); Triglycerides 130 mg/dL (<=150)
[2023-09-18 11:38] LABS: Free T4 1.01 ng/dL (0.76-1.46)
== END 2023-09-18 09:46 | disposition home or self-care (01) ==
PROVIDERS: PCP Family Medicine; Visit Provider Family Medicine
DX: Z12.31 Encounter for screening mammogram for malignant neoplasm of breast (principal); Z00.00 Encounter for general adult medical examination without abnormal findings; E03.9 Hypothyroidism, unspecified; Z80.3 Family history of malignant neoplasm of breast; Z80.41 Family history of malignant neoplasm of ovary; Z80.51 Family history of malignant neoplasm of kidney; N63.24 Unspecified lump in the left breast, lower inner quadrant
CPT/HCPCS: 36415; 77063; 77067; 80053; 80061; 84439; 84443; 85025

== ENCOUNTER 2023-10-03 08:54 | Outpatient (OUT) | payer OTHER, SELFPAY ==
--- NOTE | 2023-10-03 08:59 | US_ITS ---
Patient Name: NANI ALEX MR#: [id number] : 1965 Exam Date: 10/03/2023 Ordering Doctor: DR Rachele Payton M.D. RADIOLOGY REPORT PROCEDURE: MM DIAGNOSTIC MAMMO UNILAT LT, 10/03/2023, 08:58 US BREAST LT LIMITED, 10/03/2023, 09:05 COMPARISON: MM TOMOSYNTHESIS SCREENING BI, 09/18/2023. MM TOMOSYNTHESIS SCREENING BI, 09/16/2022. MG MAMM SCREEN 3D JAN CAD, 08/01/2021. MG MAMM SCREEN JAN W CAD, 12/29/2019. INDICATIONS: Abnormal Mammogram Calculator Name NCI Breast Cancer Risk Assessment Tool 5 Year Breast Cancer Risk 3.00% Lifetime Breast Cancer Risk 14.80% Personal Breast Cancer No Personal Ovarian Cancer No Treatments None Family Cancers Niece with breast cancer at age 22; Mother with breast cancer at age 55; Niece with breast cancer at age 33; Grandmother-maternal with breast cancer at age 30; Aunt-maternal with breast cancer at age 40; Mother with ovarian cancer at age 68; Mother with kidney cancer at age 48. LOCATION: [facility] BREAST COMPOSITION: There are scattered areas of fibroglandular density. FINDINGS: DIAGNOSTIC CATEGORY 3--PROBABLY BENIGN FINDING. THE FOLLOWING FINDING(S) HAS A HIGH PROBABILITY OF A BENIGN ETIOLOGY: LEFT BREAST: Spot magnification views demonstrate persistence of a 14 mm lobular mass versus cyst within anterior lower-inner quadrant. Ultrasound evaluation demonstrates at the 6 o'clock position a 13 x 11 x 7 mm complex, mostly cystic structure with thin stovall and some internal septations, containing some mobile debris. No significant surrounding blood flow. Adjacent to this area is a 6 mm anechoic structure, likely a cyst. Follow-up diagnostic mammography and ultrasound evaluation of left breast in 6 months is recommended to document stability. RECOMMENDATIONS: SHORT TERM FOLLOW-UP DIAGNOSTIC MAMMOGRAM LEFT BREAST IN 6 MONTHS. FOLLOW-UP ULTRASOUND LEFT BREAST IN 12 MONTHS. PLEASE NOTE: A NORMAL MAMMOGRAM DOES NOT EXCLUDE THE POSSIBILITY OF BREAST CANCER. A CLINICALLY SUSPICIOUS PALPABLE LUMP SHOULD BE BIOPSIED. Dictated by: Ross Purvis M.D. on 10/03/2023 at 09:20 Approved by: Ross Purvis M.D. on 10/03/2023 at 09:27
--- OUTSIDE RECORDS SUMMARY | 2023-10-03 08:59 | XMS_ITS | CCD ---
Author Organization [facility] Team Providers Care Programmer Business Name Role Phone Jonas Aquino Unavailable JONAS AQUINO Admitting Unavailable JONAS AQUINO Attending Unavailable JAZMYN, DR RACHELE Bolaños Primary Care Unavailable Estuardo, DR Rea Consulting Unavailable JAZMYN, DR RACHELE Bolaños Admitting Unavailable JAZMYN, DR RACHELE Bolaños Primary Care Unavailable JAZMYN, DR RACHELE Bolaños Attending Unavailable JAZMYN, DR RACHELE Bolaños Consulting Unavailable Rachele Payton MD Rachele Payton Primary Care Provider [phone] DO Gino Sheth Attending Provider [phone] Gino Sheth Admitting Unavailable Gino Sheth Attending Unavailable Rachele Payton Primary Care Unavailable Jonas Aquino Admitting Unavailable Jonas Aquino Attending Unavailable Rachele Payton Primary Care Unavailable Allergies Allergy Classification Reported Allergen(s) Allergy Type Date of Onset Reaction(s) Facility (1 source) Triamcinolone Drug Allergy 12-31-19 15 [facility] Repository (11 sources) Triamcinolone Drug Allergy Unknown [facility] Other (6 sources) patient allergy list reviewed by nurse or physicia Propensity to adverse reactions 02-14-20 16 Comment:Done [facility] Other (6 sources) Allergies Reconciled Propensity to adverse reactions Unknown [facility] Other Medications Current Medications Medication Drug Class(es) Dates Sig (Normalized) Sig (Original) [id number] 60 actuat albuterol 0.09 mg/actuat metered dose [...] 08-01-2021 BASO # 0.0 103/ul Normal 0.0-0.1 [facility] Comment on above: Performed By: #### C BC #### [facility] [address] [address] [address] Irene Rodriguez Basophils/100 WBC (Bld) 0.3 % Normal 0.2-2.0 [facility] Comment on above: Performed By: #### C BC #### [facility] [address] [address] [address] Irene Rodriguez EO # 0.1 103/ul Normal 0.0-0.7 [facility] Comment on above: Performed By: #### C BC #### [facility] [address] [place] [address] Dr. Irene Rodriguez Eosinophils/100 WBC (Bld) 1.1 % Normal 0.9-7.0 [facility] Comment on above: Performed By: #### C BC #### [facility] [address] [address] [address] Irene Rodriguez Erythrocyte distribution width (RBC) [Ratio] 13.9 % Normal 11.0-15.0 [facility] Comment on above: Performed By: #### C BC #### [facility] [address] [place] [address] Dr. Irene Rodriguez Hematocrit (Bld) [Volume fraction] 46.8 % Normal 36.0-48.0 [facility] Comment on above: Performed By: #### C BC #### [facility] [address] [address] [address] Irene Rodriguez Hemoglobin (Bld) [Mass/Vol] 15.1 g/dL Normal 12.0-16.0 [facility] Comment on above: Performed By: #### C BC #### [facility] [address] [address] [address] Irene Rodriguez IG # 0.17 10e3/ul Critically high 0.00-0.03 [facility] Comment on above: Performed By: #### C BC #### [facility] [address] [place] [address] Dr. Irene Rodriguez IG % 1.3 % Critically high 0.0-0.5 [facility] Comment on above: Performed By: #### C BC #### [facility] [address] [place] [address] Dr. Irene Rodriguez LYMPH # 2.3 103/ul Normal 1.2-3.8 [facility] Comment on above: Performed By: #### C BC #### [facility] [address] [place] [address] Dr. Irene Rodriguez Lymphocytes/100 WBC (Bld) 17.6 % Critically low 20.5-60.0 [facility] Comment on above: Performed By: #### C BC #### [facility] [address] [place] [address] Dr. Irene Rodriguez MANUAL DIFF REQ NO Normal [facility] Comment on above: Performed By: #### C BC #### [facility] [address] [place] [address] Dr. Irene Rodriguez MCH (RBC) [Entitic mass] 28.7 pg Normal 26.7-34.0 [facility] Comment on above: Performed By: #### C BC #### [facility] [address] [place] [address] Dr. Irene Rodriguez MCHC (RBC) [Mass/Vol] 32.3 g/dL Normal 29.9-35.2 [facility] Comment on above: Performed By: #### C BC #### [facility] [address] [place] [address] Dr. Irene Rodriguez MCV (RBC) [Entitic vol] 89.0 fL Normal 81.0-99.0 [facility] Comment on above: Performed By: #### C BC #### [facility] [address] [place] [address] Dr. Irene Rodriguez MONO # 0.6 103/ul Normal 0.3-0.8 [facility] Comment on above: Performed By: #### C BC #### [facility] [id number] Irene Rodriguez Monocytes/100 WBC (Bld) 4.5 % Normal 1.7-12.0 [facility] Comment on above: Performed By: #### C BC #### [facility] [address] [address] [address] Irene Rodriguez NEUT # 9.9 103/ul Critically high 1.4-6.5 [facility] Comment on above: Performed By: #### C BC #### [facility] [address] [address] [address] Irene Rodriguez Neutrophils/100 WBC (Bld) 75.2 % Critically high 43.0-75.0 [facility] Comment on above: Performed By: #### C BC #### [facility] [address] [place] [address] Dr. Irene Rodriguez Platelet mean volume (Bld) [Entitic vol] 10.5 fL Normal 9.5-13.5 [facility] Comment on above: Performed By: #### C BC #### [facility] [address] [place] [address] Dr. Irene Rodriguez PLT 282 103/ul Normal 150-450 [facility] Comment on above: Performed By: #### C BC #### [facility] [address] [place] [address] Dr. Irene Rodriguez RBC 5.26 106/ul Normal 4.20-5.40 [facility] Comment on above: Performed By: #### C BC #### [facility] [address] [place] [address] Dr. Irene Rodriguez WBC 13.2 103/ul Critically high 4.0-11.0 [facility] Comment on above: Performed By: #### C BC #### [facility] [address] [place], [place] [id number] Dr. Irene Rodriguez FREE T4on 08-01-2021 Free T4 [Mass/Vol] 1.09 ng/dL Normal 0.76-1.46 [facility] Comment on above: Performed By: #### F T4 #### [facility] [address] [address] [address] Irene Rodriguez LIPID PROFILEon 08-01-2021 CHOL-HDL RATIO NORM SEE BELOW Normal [facility] Comment on above: Result Comment: 3.3 - 4.4 LOW RISK 4.4 - 7.1 AVERAGE RISK 7.1 - 11.0 MODERATE RISK >11.0 HIGH RISK Performed By: #### L IPID, TSH, CMP #### [facility] [address] [address] [address] Irene Rodriguez Cholesterol [Mass/Vol] 179 mg/dL Normal <=200 [facility] Comment on above: Performed By: #### L IPID, TSH, CMP #### [facility] [address] [place] [address] Dr. Irene Rodriguez Cholesterol in HDL [Mass/Vol] 48 mg/dL Normal 40-60 [facility] Comment on above: Performed By: #### L IPID, TSH, CMP #### [facility] [address] [place] [address] Dr. Irene Rodriguez Cholesterol in LDL [Mass/Vol] 109.2 mg/dL Normal [facility] Comment on above: Performed By: #### L IPID, TSH, CMP #### [facility] [address] [place] [address] Dr. Irene Rodriguez Cholesterol.total/ Cholesterol in HDL [Mass ratio] 3.7 {ratio} Normal [facility] Comment on above: Performed By: #### L IPID, TSH, CMP #### [facility] [address] [place] [address] Dr. Irene Rodriguez HDL NORMAL > or = 60 mg/dl - LOW CARDIOVASCULAR RISK <40 mg/dl - HIGH CARDIOVASCULAR RISK Normal [facility] Comment on above: Performed By: #### L IPID, TSH, CMP #### [facility] [address] [place] [address] Dr. Irene Rodriguez LDL CALC NORMAL SEE BELOW Normal [facility] Comment on above: Result Comment: <100 mg/dl OPTIMAL 100 - 129 mg/dl NEAR OR ABOVE OPTIMAL 130 - 159 mg/dl BORDERLINE HIGH 160 - 189 mg/dl HIGH >190 mg/dl VERY HIGH Performed By: #### L IPID, TSH, CMP #### [facility] [address], [place] [address] Dr. Irene Rodriguez Triglyceride [Mass/Vol] 109 mg/dL Normal <=150 [facility] Comment on above: Performed By: #### L IPID, TSH, CMP #### [facility] [address] [place], [place] [address] Dr. Irene Rodriguez VLDL CALC 21.8 mg/dL Normal [facility] Comment on above: Performed By: #### L IPID, TSH, CMP #### [facility] [address] [place], [place] [address] Dr. Irene Rodriguez MG MAMM SCREEN 3D JAN CADon 08-01-2021 MG MAMM SCREEN 3D JAN CAD Patient: CHRISTINA ALEX Exam Date: 08/01/2021 : 1965 Gender:F Ordering : DR RACHELE PAYTON M.D. Admission #: [id number] Family : Order #: [id number] CLICK HERE TO VIEW EXAM RADIOLOGY REPORT [...] kidney cancer at age 46. LOCATION: [facility] BREAST COMPOSITION: Scattered areas fibroglandular [...] MD on 08/01/2021 at 10:17 Normal [facility] PROF 14(COMP METB)on 022 Albumin [Mass/Vol] 3.1 g/dL Critically low 3.4-5.0 [facility] Comment on above: Performed By: #### L IPID, TSH, CMP #### [facility] [address] [place] [address] Dr. Irene Rodriguez Albumin/Globulin [Mass ratio] 0.8 {ratio} Normal [facility] Comment on above: Performed By: #### L IPID, TSH, CMP #### [facility] [address] [place] [address] Dr. Irene Rodriguez ALP [Catalytic activity/Vol] 92 U/L Normal 46-116 [facility] Comment on above: Performed By: #### L IPID, TSH, CMP #### [facility] [address] [place] [address] Dr. Irene Rodriguez ALT [Catalytic activity/Vol] 22 U/L Normal 14-59 [facility] Comment on above: Performed By: #### L IPID, TSH, CMP #### [facility] [address] [place] [address] Dr. Irene Rodriguez Anion gap [Moles/Vol] 10.3 mmol/L Normal [facility] Comment on above: Performed By: #### L IPID, TSH, CMP #### [facility] [address] [place] [address] Dr. Irene Rodriguez AST [Catalytic activity/Vol] 9 U/L Critically low 15-37 [facility] Comment on above: Performed By: #### L IPID, TSH, CMP #### [facility] [address] [place] [address] Dr. Irene Rodriguez Bilirubin [Mass/Vol] 0.6 mg/dL Normal 0.2-1.0 [facility] Comment on above: Performed By: #### L IPID, TSH, CMP #### [facility] [address] [address] [address] Irene Rodriguez Calcium [Mass/Vol] 8.7 mg/dL Normal 8.5-10.1 [facility] Comment on above: Performed By: #### L IPID, TSH, CMP #### [facility] [address] [place] [address] Dr. Irene Rodriguez Chloride [Moles/Vol] 106 mmol/L Normal 98-107 [facility] Comment on above: Performed By: #### L IPID, TSH, CMP #### [facility] [address] [place] [address] Dr. Irene Rodriguez CO2 [Moles/Vol] 26.7 mmol/L Normal 21.0-32.0 [facility] Comment on above: Performed By: #### L IPID, TSH, CMP #### [facility] [address] [place] [address] Dr. Irene Rodriguez Creatinine [Mass/Vol] 0.84 mg/dL Normal 0.55-1.02 [facility] Comment on above: Performed By: #### L IPID, TSH, CMP #### [facility] [address] [place] [address] Dr. Irene Rodriguez EGFR-AF TUVALUAN >60 Normal >=60 [facility] Comment on above: Performed By: #### L IPID, TSH, CMP #### [facility] [address] [place] [address] Dr. Irene Rodriguez EGFR-NON AF TUVALUAN >60 Normal >=60 [facility] Comment on above: Performed By: #### L IPID, TSH, CMP #### [facility] [address] [place] [address] Dr. Irene Rodriguez Globulin (S) [Mass/Vol] 4.1 g/dL Normal [facility] Comment on above: Performed By: #### L IPID, TSH, CMP #### [facility] [address] [place] [address] Dr. Irene Rodriguez Glucose [Mass/Vol] 96 mg/dL Normal 74-106 [facility] Comment on above: Performed By: #### L IPID, TSH, CMP #### [facility] [address] [place] [address] Dr. Irene Rodriguez Potassium [Moles/Vol] 4.0 mmol/L Normal 3.5-5.1 [facility] Comment on above: Performed By: #### L IPID, TSH, CMP #### [facility] [address] [place] [address] Dr. Irene Rodriguez Protein [Mass/Vol] 7.2 g/dL Normal 6.4-8.2 [facility] Comment on above: Performed By: #### L IPID, TSH, CMP #### [facility] [address] [place] [address] Dr. Irene Rodriguez Sodium [Moles/Vol] 139 mmol/L Normal 136-145 [facility] Comment on above: Performed By: #### L IPID, TSH, CMP #### [facility] [address] [place] [address] Dr. Irene Rodriguez Urea nitrogen [Mass/Vol] 17.0 mg/dL Normal 7.0-18.0 [facility] Comment on above: Performed By: #### L IPID, TSH, CMP #### [facility] [address] [place] [address] Dr. Irene Rodriguez Urea nitrogen/Creatinin e [Mass ratio] 20.2 mg/mg Normal [facility] Comment on above: Performed By: #### L IPID, TSH, CMP #### [facility] [address] [place] [address] Dr. Irene Rodriguez TSHon 08-01-2021 TSH 3.517 uIU/mL Normal 0.358-3.740 [facility] Comment on above: Performed By: #### L IPID, TSH, CMP #### [facility] [address] [place] [address] Dr. Irene Rodriguez TSH RANGE SEE BELOW Normal [facility] Comment on above: Result Comment: <0.3 4 UIU/ml HYPERTHYROID 0.34-5.60 UIU/ml EUTHYROID >5.60 UIU/ml HYPOTHYROID Performed By: #### L IPID, TSH, CMP #### [facility] [address] [address] [address] Irene Rodriguez XR DEXA BONE DENSITYon [...] by: JAVED ALBARADO Date: 2021-08-01 16:12 Normal [facility] XR knee BI 3Von 07-25-2021 XR knee BI 3V [facility] [employer] Other XR knee BI 3V [facility] [employer] Other XR knee BI 3V [address] [place] [address] [employer] Other XR knee BI 3V [address] [employer] Other XR knee BI 3V XRay Report [employer] [facility] [employer] Other XR knee BI 3V Signed [place] [employer] Other XR knee BI 3V Patient: Christina Alex MR#: [id number] [facility] [employer] Other XR knee BI 3V [facility] [employer] Other XR knee BI 3V : 1965 Acct:[id number] [place] [employer] Other XR knee BI 3V Age/Sex: 56 / F ADM Date: 07/25/21 [facility] [employer] Other XR knee BI 3V Loc: [facility] Room: Type: REG CLI [facility] [employer] Other XR knee BI 3V Attending Dr: Jonas Aquino DO [facility] Other XR knee BI 3V Ordering Provider: Jonas Aquino DO [employer] [facility] Other XR knee BI 3V Date of Service: 07/25/21 [employer] [facility] Other XR knee BI 3V XR/XR knee BI 3V - NOT FOR ER USE: PAIN [facility] Other XR knee BI 3V Copies to: Jonas Aquino DO [employer] [facility] Other XR knee BI 3V BILATERAL KNEES - 3 views each [employer] [facility] Other XR knee BI 3V CLINICAL HISTORY: Bilateral knee pain for 2 weeks. [employer] [facility] Other XR knee BI 3V COMPARISON: None. [employer] Other XR knee BI 3V FINDINGS: Right knee: No significant joint effusion. No acute bony process. Moderate degenerative [employer] Other XR knee BI 3V changes with medial weightbearing joint space narrowing. [employer] Other XR knee BI 3V Left knee: No significant knee joint effusion. No acute bony process. Moderate degenerative changes [employer] [facility] Other XR knee BI 3V with medial weightbearing joint space narrowing. [employer] [facility] Other XR knee BI 3V XR/XR knee BI 3V - NOT FOR ER USE [facility] Other XR knee BI 3V IMPRESSION: [employer] Other XR knee BI 3V MODERATE DEGENERATIVE CHANGES OF BOTH KNEES WITHOUT ACUTE BONY PROCESS. [employer] [facility] Other XR knee BI 3V Impression dictated by: Jose J Frye Jr.OShmuel07/25/2021 9:58 AM [employer] Other XR knee BI 3V Dictation Location: [employer]IO-[employer]-11 [place] [employer] Other XR knee BI 3V Transcribed By: PWS 07/25/21 0955 [place] [employer] Other XR knee BI 3V Dictated By: Mau Hill Jr, DO 07/25/21 0954 [employer] Other XR knee BI 3V Signed By: [employer] Other XR knee BI 3V 07/25/21 0958 [facility] [employer] Other XR knee BI 3V - NOT FOR ER U Yaima 07-25-2021 XR knee BI 3V - NOT FOR ER USE [facility] [place] [address] [place] [address] XRay Report Signed Patient: Christina Alex MR#: [id number] : 1965 Acct:[id number] Age/Sex: 56 / F ADM Date: 07/25/21 Loc: [facility] Room: Type: [facility] Attending Dr: Jonas Aquino DO Ordering Provider: [...] Hill Jr., D.O.07/25/2021 9:58 AM Dictation Location: [employer]-11 Transcribed By: MARY ANN 07/25/21 0958 Dictated By: Mau Hill Jr, DO 07/25/21 0954 Signed By: 07/25/21 0958 Normal [facility] Vital Signs Date Time Vital Sign Value Performing Clinician Facility 12-01-2023 11:30-0500 Body height 168.91 cm Rachele Payton Other [facility] Other 01-24-2023 11:30-0500 Body mass index (BMI) [Ratio] 44.13 kg/m2 Rachele Payton Other [facility] Other 01-24-2023 11:30-0500 Body weight 125.92 kg Rachele Payton Other [facility] Other 01-24-2023 11:30-0500 Diastolic blood pressure 81 mm[Hg] Rachele Payton Other [facility] Other 01-24-2023 11:30-0500 SaO2% (BldA) [Mass fraction] 97 % Rachele Payton Other [facility] Other 01-24-2023 11:30-0500 Systolic blood pressure 137 mm[Hg] Rachele Payton Other [facility] Other 04-15-2022 08:30-0500 Body height 168.91 cm Rachele Payton Other [facility] Other 04-15-2022 08:30-0500 Body mass index (BMI) [Ratio] 42.44 kg/m2 Rachele Payton Other [facility] Other 04-15-2022 08:30-0500 Body weight 121.11 kg Rachele Payton Other [facility] Other 04-15-2022 08:30-0500 Diastolic blood pressure 88 mm[Hg] Rachele Payton Other [facility] Other 04-15-2022 08:30-0500 SaO2% (BldA) [Mass fraction] 97 % Rachele Jazmyn Other [facility] Other 04-15-2022 08:30-0500 Systolic blood pressure 130 mm[Hg] Rachele Jazmyn Other [facility] Other 07-25-2021 09:30-0400 Body height 170.18 cm Jonas Aquino Other [facility] Other 07-25-2021 09:30-0400 Body mass index (BMI) [Ratio] 39.15 kg/m2 Jonas Aquino Other [facility] Other 07-25-2021 09:30-0400 Body weight 113.4 kg Jonas Aquino Other [facility] Other Encounters Encounter Date Encounter Type Care Provider Facility Start: 02-20-2023 End: 02-20-2023 ambulatory Rachele Payton Other [facility] Other Start: 02-20-2023 Telephone encounter Rachele Jazmyn [facility] Start: 02-12-2023 End: 02-12-2023 ambulatory Rachele Jazmyn Other [facility] Other Start: 02-12-2023 Telephone encounter Rachele Jazmyn [facility] Start: 02-11-2023 End: 02-11-2023 ambulatory Rachele Jazmyn Other [facility] Other Start: 02-11-2023 Telephone encounter Rachele Jazmyn [facility] Start: 02-03-2023 End: 02-03-2023 ambulatory Rachele Payton Other [facility] Other Start: 02-03-2023 Telephone encounter Rachele Jazmyn [facility] Start: 01-24-2023 End: 01-24-2023 ambulatory Rachele Payton Other [facility] Other Start: 01-24-2023 Encounter by aleida Payton [facility] Start: 01-24-2023 Office outpatient vi sit 15 minutes Rachele Payton [facility] Start: 05-27-2022 End: 05-27-2022 ambulatory Gino Sheth Facility:[facility] Start: 05-27-2022 End: 05-27-2022 ambulatory MD Rachele Payton Work Phone: [facility] Work Phone: Start: 05-27-2022 End: 05-27-2022 Discharged Recurring MD Rachele Payton Work Phone: [facility] [facility] Start: 05-23-2022 End: 05-23-2022 ambulatory Rachele Payton Other [facility] Other Start: 05-23-2022 Telephone encounter Rachele Payton [facility] Start: 05-21-2022 End: 05-21-2022 ambulatory Rachele Payton Other [facility] Other Start: 05-21-2022 Telephone encounter Rachele Jazmyn [facility] Start: 04-17-2022 End: 04-17-2022 ambulatory Rachele Payton Other [facility] Other Start: 04-17-2022 Telephone encounter Rachele Payton [facility] Start: 04-15-2022 End: 04-15-2022 ambulatory Rachele Payton Other [facility] Other Start: 04-15-2022 Office outpatient vi sit 15 minutes Rachele Payton [facility] Start: 03-18-2022 (Televisit) Televisit R[facility]le [facility] Start: 03-18-2022 End: 03-18-2022 ambulatory Rachele Payton Other [facility] Other Start: 08-04-2021 Encounter for genera l adult medical examination without abnormal findings DR RACHELE PAYTON [facility] Start: 08-01-2021 End: 09-21-2021 ambulatory JONAS AQUINO Facility:[facility] Start: 08-01-2021 End: 08-02-[address] Javed Albarado Facility:[facility] Start: 08-01-2021 End: 08-02-2021 Encounter for general adult medical examination without abnormal findings DR Javed Albarado Facility:[facility] Start: 07-27-2021 Adult health examination Marah Payton Other [facility] Other Start: 07-27-2021 Gynecological examin ation normal Rachele Payton Other [facility] Other Start: 07-25-2021 Office outpatient ne w 45 minutes Jonas Aquino [facility] Start: 07-25-2021 End: 07-25-2021 ambulatory Jonas Aquino [facility] Other Procedures Date Procedure Procedure Detail Performing Clinician Screening for malign ant neoplasm of breast Rachele Payton Other Screening for malign ant neoplasm of colon Rachele Payton Other Immunizations Immunization Date Immunization Notes Care Provider Fa cilirufus 01-03-2018 influenza virus vaccine, split virus (incl. purified surface antigen) Rachele Payton Other [facility] Other 12-17-2016 tetanus and diphther ia toxoids, adsorbed, preservative free, for adult use (5 Lf of tetanus toxoid and 2 Lf of diphtheria toxoid) Rachele Payton Other [facility] Other 07-08-2016 diphtheria, tetanus toxoids and acellular pertussis vaccine, unspecified formulation Rachele Payton Other [facility] Other 12-11-2015 influenza virus vaccine, split virus (incl. purified surface antigen) Rachele Payton Other [facility] Other 01-22-2015 influenza virus vaccine, split virus (incl. purified surface antigen) Rachele Jazmyn Other [facility] Other Payers Date Payer Category Payer Self-pay [id number] 1965 Unknown [id number] 2.16.84 [id number] 1965 Unknown [id number] 2.16.84 [id number] 1961 Unknown [id number] 2. [id number] Unknown [id number] 2.16.8 [id number] Unknown [id number] 2.16.8 [id number] Social History Date Type Detail Facility Sex Assigned At [facility] Other Start: 1965 Sex Assigned At Female [facility] Evaluation note 02-11-2023 Note Date & Type Note Facility 02-11-2023 Evaluation note Encounter Date Diagnosis Assessment Notes Jan, Hypothyroidism, unspecified type (ICD-10 - E03.9) [facility] Other Evaluation note 01-24-2023 Note Date & [...] likely contributing to her elevated bp reading. [facility] Other Evaluation note 04-15-2022 Note Date & Type Note Facility 04-15-2022 Evaluation note Encounter Date Diagnosis Assessment Notes Mar, Gastroesophageal reflux disease without esophagitis (ICD-10 - K21.9) Add med. 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 [facility] Other Evaluation note 03-18-2022 Note Date & Type Note Facility 03-18-2022 Evaluation note Encounter Date Diagnosis Assessment Notes Feb, Laryngitis (ICD-10 - J04.0) 3 weeks of acute laryngitis. Patient requests referral to Dr. Sheth if her symptoms do not improve. [facility] Other Evaluation note 07-25-2021 Note Date & [...] injection well without adverse reaction. Patient given [facility] information handout. Prescription for meloxicam sent into [...] as documented in the electronic medical record. [facility] Other Evaluation note Note Date & Type Note Facility Evaluation note No Information [facility] Other Evaluation note Note Date & Type Note Facility Evaluation note No assessment information [facility] Work Phone: History general Narrative - Reported Note Date & Type Note Facility History general Narrative - Reported Type Medical History Hypothyroidism Surgical History arthroscopic knee surgery right 2015 Surgical History carpal tunnel release bilateral 2014 Surgical History hysterectomy 2004 Surgical History plantar fasciotomy 2010 Surgical History tonsillectomy and adenoidectomy 1982 Surgical History x2 [facility] Other History general Narrative - Reported Note [...] History x2 Hospitalization History SEE SURGICAL HX [facility] Other Summary Purpose Family History No Family History Records FoundNo Family History Records Found Advance Directives Advance Directive Response Recorded Date/ Time Advance Directives No July 25 10:23am Reason for Referral Reason 03/20/22 Call Mina Shelton [phone] - Christina can't talk at all! Diagnosis 1 Laryngitis (J04.0) Referral Organization [facility] Referring Provider First Name Rachele Referring Provider Last Name Jazmyn Referring Provider Specialty Family Medi cine Referred Organization [facility] Referred Provider Gino Sheth Referred Address ,[place], [place],[address] Referred Provider Specialty Otolaryngolo gy Referral Priority Routine Referral Appointment Date 2022-03-20 General Notes Setffany Moraes 10:46:08 AM >received today, CALL MINA [...] and content) DATE CREATED AUTHOR 09/27/2021 [facility] DATE CREATED AUTHOR AUTHOR'S ORGANIZ ATION 06/01/2022 [facility] (unrecognized sec tion and content) [...] BE BASED ON THE PRIMARY CLINICAL RECORDS. [facility] provides no warranty or guarantee of the accuracy or completeness of information in this document.
== END 2023-10-03 08:55 | disposition home or self-care (01) ==
LOC: MAMMO 08:54
PROVIDERS: PCP Family Medicine; Visit Provider Family Medicine
DX: R92.8 Other abnormal and inconclusive findings on diagnostic imaging of breast (principal); Z80.3 Family history of malignant neoplasm of breast; Z80.51 Family history of malignant neoplasm of kidney; Z80.41 Family history of malignant neoplasm of ovary
CPT/HCPCS: 76642; 77065

== ENCOUNTER 2024-05-26 09:29 | Emergency (ER) | payer OTHER, SELFPAY ==
[2024-05-26 09:35] VITALS: BP 167/101; PULSE 84; TEMP 37.1; O2SAT 100; BMI 39.2
--- OUTSIDE RECORDS SUMMARY | 2024-05-26 09:35 | XMS_ITS | CCD ---
Author Organization [facility]iniSym[facility] Care Team Providers Care Outreach Nurse Name Role Phone Jonas Colbert Unavailable JONAS COLBERT Admitting Unavailable JONAS COLBERT Attending Unavailable JAZMYN, DR RACHELE Bolaños Primary Care Unavailable Estuardo, DR Rea Consulting Unavailable JAZMYN, DR RACHELE Bolaños Admitting Unavailable JAZMYN, DR RACHELE Bolaños Primary Care Unavailable JAZMYN, DR RACHELE Bolaños Attending Unavailable JAZMYN, DR RACHELE Bolaños Consulting Unavailable Rachele Eldridge Unavailable MD Rachele Eldridge Primary Care Provider DO Gino Sheth Attending Provider MD Rachele Eldridge Primary Care Provider DO Jonas Colbert Attending Provider Rachele Eldridge MD Primary Care Provider Rachele Eldridge MD Attending Provider Jonas Colbert Admitting Unavailable Rachele Eldridge Primary Care Unavailable Jonas Colbert Attending Unavailable Rachele Eldridge Attending Unavailable Rachele Eldridge Primary Care Unavailable Rachele Eldridge Admitting Unavailable Allergies Allergy Classification Reported Allergen(s) Allergy Type Date of Onset Reaction(s) Facility (1 source) Triamcinolone Drug Allergy 12-31-19 15 [facility] Repository (11 sources) Triamcinolone Drug Allergy Unknown [email or web address] Other (6 sources) patient allergy list reviewed by nurse or physicia Propensity to adverse reactions 02-14-20 16 Comment:Done [email or web address] Other (6 sources) Allergies Reconciled Propensity to adverse reactions Unknown [email or web address] Other (1 source) Triamcinolone Drug Allergy 11-06-19 24 [facility] Repository Medications Current Medications Medication Drug Class(es) Dates Sig (Normalized) Sig (Original) [id number] 200 actuat albuterol 0.09 mg/actuat metered dose inhaler (8 sources) beta2-Adrenergic Agonist Start: 05-12-2023 take 1 puff(s) by inhalation every four hours Albuterol Sulfate 90 mcg/actuation HFA aerosol inhaler Active 2 PUFF INHALATION Every 4 hours May 12, 2023 12:00am Start: 01-27-2023 take 2 puff(s) by in halation every four hours as needed Albuterol Sulfate HFA 108 (90 Base) MCG/ACT 2 puff Inhalation every 4 hrs prn Jan, Active Start: 01-27-2023 take 2 puff(s) by in halation every four hours as needed Albuterol Sulfate HFA 108 (90 Base) MCG/ACT 2 puff Inhalation every 4 hrs prn Jan, Active diclofenac sodium 75 mg delayed release oral tablet (2 sources) Nonsteroidal Anti-inflammatory Drug Start: 10-15-2023 take 1 tablet by mouth twice daily Diclofenac Sodium 75 mg tablet,delayed release (DR/EC) Active 75 MG PO Twice daily 180 90 October 15, 2023 12:00am famotidine 20 mg oral tablet (2 sources) Histamine-2 Receptor Antagonist Start: 09-25-2023 take 1 tablet by mouth once daily at bedtime Famotidine (Pepcid Ac) 20 mg tablet Active 20 MG PO Daily at bedtime September 25, 2023 12:00am fexofenadine (1 source) Histamine-1 Receptor Antagonist Oumou Active 12 hr fexofenadine hydrochloride 60 mg / pseudoephedrine hydrochloride 120 mg extended release oral tablet (5 sources) alpha-Adrenergic Agonist, Histamine-1 Receptor Antagonist take 1 tablet by mouth every twelve hours Oumou-D Allergy & Congestion 60-120 MG 1 tablet as needed Orally Twice a day Active meloxicam 15 mg oral tablet (9 sources) Nonsteroidal Anti-inflammatory Drug Start: 05-12-2023 Meloxicam 15 mg tablet Active 15 MG PO .PRN May 12, 2023 12:00am Start: 07-25-2021 take 1 tablet by adilene th every twenty-four hours Meloxicam 7.5 MG 1 [...] Drug Class(es) Dates Sig (Normalized) Sig (Original) levothyroxine sodium 0.075 mg oral tablet (20 sources) l-Thyroxine Start: 05-12-2023 End: 09-25-2023 take 1 tablet by mouth once daily in the morning Levothyroxine 75 mcg tablet Discontinued 0 .ROUTE .COMPLEX August 18, 2023 12:50pm September 25, 2023 2:38pm TAKE 1 TABLET BY MOUTH EVERY DAY IN THE MORNING ON EMPTY STOMACH FOR 90 DAYS Start: 05-12-2023 End: 05-12-2023 take 1 tablet by mouth once daily Levothyroxine (Synthroid) 75 mcg tablet Discontinued 75 MCG PO Daily May 12, 2023 12:00am May 12, 2023 10:07am take 1 tablet by adilene th once daily in the morning Synthroid 75 [...] empty stomach Orally Once a day Active triamcinolone acetonide 40 mg/ml injectable suspension (20 sources) Corticosteroid Start: 07-25-2021 Kenalog-40 Jul, 40 mg Problems Active Problems Problem Classification Problem Date Documented Date Episodic/Chronic Esophageal disorders (12 sources) Gastroesophageal reflux disease without esophagitis; Translations: [Gastro-esophageal reflux disease without esophagitis] Chronic Osteoarthritis (20 sources) Primary gonarthrosis, bilateral; Translations: [Bilateral primary [...] reading, without diagnosis of hypertension Episodic Other connective tissue disease (2 sources) Trochanteric bursitis; Translations: [Trochanteric bursitis, unspecified hip] 10-15-2023 Episodic Other connective tissue disease (1 source) Trochanteric bursitis, unspecified hip; Translations: [Enthesopathy of hip region] 10-15-2023 Episodic Other nervous system disorders (6 sources) Carpal tunnel syndrome; Translations: [Carpal tunnel syndrome] Onset: 07-04-2014 Chronic Other non-traumatic joint disorders (3 sources) Pain in right knee; Translations: [Pain in both knees] Onset: 07-25-2021 Resolved: 07-25-2021 Episodic Other non-traumatic [...] Chronic Other nutritional; endocrine; and metabolic disorders (14 sources) Body mass index 30+ - obesity; Translations: [Body mass index (BMI) 39.0-39.9, adult] 10-13-2023 Chronic Other nutritional; endocrine; and metabolic disorders (2 sources) Other obesity due to excess calories; Translations: [Obesity, unspecified] Onset: 07-25-2021 Resolved: 07-25-2021 Chronic Other nutritional; endocrine; and metabolic disorders (2 sources) Body mass index (BMI) 39.0-39.9, adult; Translations: [Body Mass Index 39.0-39.9, adult] Onset: 07-25-2021 Resolved: 07-25-2021 Chronic Other nutritional; endocrine; and metabolic disorders (6 sources) Body mass index 40+ - severely obese; Translations: [Body mass index (BMI) 40.0-44.9, adult] Chronic Other nutritional; endocrine; and metabolic disorders (2 sources) Obesity caused by energy imbalance; Translations: [Other obesity due to excess calories] 10-13-2023 Chronic Other screening for suspected conditions (not mental disorders or infectious disease) (5 sources) Encounter for screening mammogram for malignant neoplasm of breast; Translations: [Mammography abnormal] Onset: 08-04-2021 09-22-2023 Episodic Other upper respiratory disease (6 sources) Allergic rhinitis; Translations: [Allergic rhinitis, unspecified] Onset: 07-02-2016 Chronic Other upper respiratory disease (1 source) Other diseases of vocal cords Episodic Other upper respiratory infections (6 sources) [...] back pain; Translations: [Lumbago] Episodic Thyroid disorders (19 sources) Hypothyroidism, unspecified; Translations: [Hypothyroidism] Onset: 08-04-2021 Chronic Past or Other Problems Problem Classification Problem Date Documented Da te Episodic/Chronic Other connective tissue disease (6 sources) Disorder of soft tissue; Translations: [Disorders of soft tissue, unspecified] Onset: 10-03-2014 Episodic Other non-traumatic joint disorders (1 source) Pain in right hip; Translations: [Pain in right hip] Onset: 10-15-2023 Episodic Other upper respiratory infections (7 sources) Acute laryngitis; Translations: [Acute maxillary sinusitis] Onset: 02-14-2016 Episodic Residual codes; unclassified (6 sources) Edema; Translations: [Edema] Onset: 10-03-2014 Episodic Unclassified (1 source) Chronic cough R05.3 Results Test Name Value Interpretation Reference Range Facility MM diagnostic mammo LT w/CAD on 05-07-2024 MM diagnostic mammo LT w/CAD [facility] [place] [address] [place] [address] Ultrasound Report Signed Patient: Christina Alex MR#: [id number] 504 : 1965 Acct:[id number] Age/Sex: 59 / F ADM Date: 05/07/24 Loc: [place] Room: Type: [facility] Attending Dr: Rachele Eldridge MD Ordering Provider: Rachele Eldridge MD Date of Service: 05/07/24 MM/MM diagnostic mammo LT w/CAD: R92.8 ([id number]) US/US breast LT limited: 6MONTH F/UP Copies to: Rachele Eldridge MD CLINICAL DATA: Six-month follow-up cyst left breast Left DIAGNOSTIC MAMMOGRAM - WITH TOMOSYNTHESIS AND CAD , leftLIMITED BREAST ULTRASOUND COMPARISON:Outside mammography 09/16/2022 and 09/18/2023. Left breast ultrasound 10/03/2023 Tomosynthesis imaging was obtained using low-dose digital technique. This examination was reviewed with the aid of CAD. Additional ultrasound imaging was also obtained. Mammogram: The left breast is composed of scattered fibroglandular densities. No new areas of architectural distortion, worrisome masses or suspicious microcalcifications . Ultrasound: At the 6:00 position of the left breast approximately 4 to 5 cm from the nipple, the previously identified complex cyst is once again noted measuring 11 x 8 x 6 mm. No solid component is seen. US/US breast LT limited IMPRESSION: NO MAMMOGRAPHIC OR ULTRASOUND EVIDENCE OF MALIGNANCY. PATIENT SHOULD RETURN FOR BILATERAL SCREENING MAMMOGRAPHY IN AUGUST 2024. RESULT CODE: 2 Benign Findings(s) DENSITY CODE: 2 (approximately 25-50% glandular) There are scattered areas of fibroglandular density. FOLLOW UP: 6M The false-negative rate of mammography is approximately 10-percent. Management of a palpable abnormality must be based on clinical grounds. Impression dictated by: Mau Hill Jr., Jose JOShmuel05/07/2024 9:34 AM Dictation Location: [facility] Tech: Evangelina Blas; Dolores Singh Transcribed By: MARY ANN 05/07/24 0934 Dictated By: Mau Hill Jr, DO 05/07/2428 Signed By: 05/07/24933 Normal [facility] XR hip RT min 2V(w/wo pelvis )*on 10-15-2023 XR hip RT min 2V(w/wo pelvis)* [facility] [address] [place] [address] XRay Report Signed Patient: Christina Alex MR#: [id number] : 1965 Acct:[id number] Age/Sex: 58 / F ADM Date: 10/15/23 Loc: [facility] Room: Type: [facility] Attending Dr: Jonas Colbert DO Copies to: Jonas Colbert DO Ordering Provider: Jonas Colbert DO Date of Service: 10/15/23 XR/XR hip RT min 2V(w/wo pelvis)*: M25.551 - Pain in right hip 2 views right hip with single view pelvis plain film COMPARISON: None HISTORY: Bilateral knee pain for one and half years. Right hip pain ACUTE FINDINGS: None DEGENERATIVE CHANGE: Mild bilateral hip and SI joint degenerative changes lower lumbar degeneration and spondylosis SOFT TISSUE FINDINGS: Unremarkable JOINT EFFUSION: None POSTOP CHANGES: None BONY MINERALIZATION: Adequate XR/XR hip RT min 2V(w/wo pelvis)* IMPRESSION: Degenerative change Impression dictated by: Enoch Sharp M.D.10/15/2023 1:49 PM Dictation Location: [place] [address] Transcribed By: MARY ANN 10/15/23 1349 Dictated By: Enoch Sharp DO 10/15/23 1349 Signed By: 10/15/23 1349 Normal [facility] XR knee BI 3V - NOT FOR ER U Yaima 10-15-2023 XR knee BI 3V - NOT FOR ER USE [facility] [address] [place] [id number] XRay Report Signed Patient: Christina Alex MR#: [id number] 504 : 1965 Acct:[id number] Age/Sex: 58 / F ADM Date: 10/15/23 Loc: [facility] Room: Type: [facility] Attending Dr: Jonas Colbert DO Copies to: Jonas Colbert DO Ordering Provider: Jonas Colbert DO Date of Service: 10/15/23 XR/XR knee BI 3V - NOT FOR ER USE: M17.0 - Bilateral primary osteoarthritis of knee 3 views both knee plain film COMPARISON: 07/25/2021 HISTORY: Bilateral knee pain. ACUTE FINDINGS: No acute findings DEGENERATIVE CHANGE: Medial joint space narrowing greater on the right. Adequate lateral patellofemoral joint spaces. Marginal spurring. Mild left patellar subluxation. SOFT TISSUE FINDINGS: Unremarkable JOINT EFFUSION: Small left joint effusion. POSTOP CHANGES: None BONE MINERALIZATION: Adequate XR/XR knee BI 3V - NOT FOR ER USE IMPRESSION: Bilateral knee degeneration greatest in medial compartment similar prior examination. Impression dictated by: Enoch Sharp M.D.10/15/2023 1:54 PM Dictation Location: [place] [address] Transcribed By: [facility] 10/15/23 1354 Dictated By: Enoch Sharp DO 10/15/23 1349 Signed By: 10/15/23 1354 Normal [facility] Basophils Auto (Bld) [#/Vol] on 09-18-2023 Basophils (Bld) [#/Vol] 0.0 10 3/uL 0.0-0.1 [facility] Basophils/100 WBC Auto (Bld) on 09-18-2023 Basophils/100 WBC (Bld) 0.4 % 0.2-2.0 [facility] Cholesterol in LDL Calc [Mas s/Vol]on 09-18-2023 Cholesterol in LDL [Mass/Vol] 105.0 mg/dL [facility] Comment on above: <100 mg/dl [id number] 0-129 mg/dl NEAR OR ABOVE [id number] mg/dl BORDERLINE [id number] mg/dl HIGH>190 mg/dl VERY HIGH Cholesterol in VLDL Calc [Ma ss/Vol]on 09-18-2023 Cholesterol in VLDL [Mass/Vol] 26.0 mg/dL [facility] Eosinophils/100 WBC Auto (Bl d)on 09-18-2023 Eosinophils/100 WBC (Bld) 1.4 % 0.9-7.0 [facility] Erythrocyte distribution wid th Auto (RBC) [Ratio]on 09-18-2023 Erythrocyte distribution width (RBC) [Ratio] 13.7 % 11.0-15.0 [facility] Estimated glomerular filtrat ion rate (GFR) non- Americanon 09-18-2023 GFR/1.73 sq M.predicted among non-blacks MDRD (S/P/Bld) [Vol rate/Area] mL/min/{1.73_m2} >=60 [facility] Globulin Calc (S) [Mass/Vol] on 09-18-2023 Globulin (S) [Mass/Vol] 4.1 g/dL [facility] Hematocrit Auto (Bld) [Volum e fraction]on 09-18-2023 Hematocrit (Bld) [Volume fraction] 43.6 % 36.0-48.0 [facility] Hemoglobin [Mass/volume] in Bloodon 09-18-2023 Hemoglobin (Bld) [Mass/Vol] 14.0 g/dL 12.0-16.0 [facility] Laboratory - Chemistry and C hemistry - challengeon 09-18-2023 Albumin [Mass/Vol] 3.2 g/dL Low 3.4-5.0 [facility] ALP [Catalytic activity/Vol] 98 U/L 46-116 [facility] ALT [Catalytic activity/Vol] 21 U/L 14-59 [facility] AST [Catalytic activity/Vol] 14 U/L Low 15-37 [facility] Bilirubin [Mass/Vol] 0.6 mg/dL 0.2-1.0 [facility] Calcium [Mass/Vol] 9.1 mg/dL 8.5-10.1 [facility] Chloride [Moles/Vol] 105 mmol/L 98-107 [facility] Cholesterol [Mass/Vol] 180 mg/dL <=200 [facility] Cholesterol in HDL [Mass/Vol] 49 mg/dL 40-60 [facility] Comment on above: > or =60 mg/dl - LOW CARDIOVASCULAR RISK<40 mg/dl - HIGH CARDIOVASCULAR RISK CO2 [Moles/Vol] 25.9 mmol/L 21.0-32.0 [facility] Creatinine [Mass/Vol] 0.80 mg/dL 0.55-1.02 [facility] Free T4 [Mass/Vol] 1.01 ng/dL 0.76-1.46 [facility] GFR/1.73 sq M.predicted MDRD (S/P/Bld) [Vol rate/Area] mL/min/{1.73_m2} >=60 [facility] Glucose [Mass/Vol] 98 mg/dL 74-106 [facility] Potassium [Moles/Vol] 4.1 mmol/L 3.5-5.1 [facility] Protein [Mass/Vol] 7.3 g/dL 6.4-8.2 [facility] Sodium [Moles/Vol] 141 mmol/L 136-145 [facility] Triglyceride [Mass/Vol] 130 mg/dL <=150 [facility] TSH Qn 3.034 m[IU]/L 0.358-3.740 [facility] Urea nitrogen [Mass/Vol] 13.0 mg/dL 7.0-18.0 [facility] Urea nitrogen/Creatinine [Mass ratio] 16.2 mg/mg [facility] Laboratory - Hematology and Cell countson 09-18-2023 Immature granulocytes/100 WBC (Bld) 0.6 % High 0.0-0.5 [facility] Leukocytes [#/volume] correc dianne for nucleated erythrocytes in Blood by Automated counon 09-18-2023 WBC corrected for nucl RBC Auto (Bld) [#/Vol] 10.1 10 3/uL 4.0-11.0 [facility] Lymphocytes Auto (Bld) [#/Vo l]on 09-18-2023 Lymphocytes (Bld) [#/Vol] 2.1 10 3/uL 1.2-3.8 [facility] Lymphocytes/100 WBC Auto (Bl d)on 09-18-2023 Lymphocytes/100 WBC (Bld) 20.4 % Low 20.5-60.0 [facility] MCH Auto (RBC) [Entitic mass ]on 09-18-2023 MCH (RBC) [Entitic mass] 29.1 pg 26.7-34.0 [facility] MCHC Auto (RBC) [Mass/Vol]on 09-18-2023 MCHC (RBC) [Mass/Vol] 32.1 g/dL 29.9-35.2 [facility] MCV Auto (RBC) [Entitic vol] on 09-18-2023 MCV (RBC) [Entitic vol] 90.6 fL 81.0-99.0 [facility] Monocytes Auto (Bld) [#/Vol] on 09-18-2023 Monocytes (Bld) [#/Vol] 0.6 10 3/uL 0.3-0.8 [facility] Monocytes/100 WBC Auto (Bld) on 09-18-2023 Monocytes/100 WBC (Bld) 5.9 % 1.7-12.0 [facility] Neutrophils Auto (Bld) [#/Vo l]on 09-18-2023 Neutrophils (Bld) [#/Vol] 7.2 10 3/uL High 1.4-6.5 [facility] Neutrophils/100 WBC Auto (Bl d)on 09-18-2023 Neutrophils/100 WBC (Bld) 71.3 % 43.0-75.0 [facility] No Panel Informationon 09-17 Eosinophils # (Auto) 0.1 10 3/uL 0.0-0.7 [facility] Immature Granulocyte # (Auto) 0.06 10 3/uL High 0.00-0.03 [facility] Platelet mean volume Auto (B ld) [Entitic vol]on 09-18-2023 Platelet mean volume (Bld) [Entitic vol] 10.6 fL 9.5-13.5 [facility] Platelets Auto (Bld) [#/Vol] on 09-18-2023 Platelets (Bld) [#/Vol] 257 10 3/uL 150-450 [facility] RBC Auto (Bld) [#/Vol]on RBC (Bld) [#/Vol] 4.81 10 6/uL 4.20-5.40 [facility] Serum or plasma albumin/glob ulin mass ratioon 09-18-2023 Albumin/Globulin [Mass ratio] 0.8 {ratio} [facility] Serum or plasma anion gap de terminationon 09-18-2023 Anion gap [Moles/Vol] 14.2 mmol/L [facility] Serum or plasma total choles terol/high density lipoprotein (HDL) cholesterol mass elvis 09-18-2023 Cholesterol.total/Ch olesterol in HDL [Mass ratio] 3.7 {ratio} [facility] Comment on above: 3.3 - 4.4 LOW RISK4. 4 - 7.1 AVERAGE RISK7.1 - 11.0 MODERATE RISK>11.0 HIGH RISK CBC AUTO DIFFon 08-01-2021 BASO # 0.0 103/ul Normal 0.0-0.1 [facility] Comment on above: Performed By: #### C BC #### [facility] [address] [place] [address] Dr. Irene Rodriguez Basophils/100 WBC (Bld) 0.3 % Normal 0.2-2.0 [facility] Comment on above: Performed By: #### C BC #### [facility] [address] [place] [address] Dr. Irene Rodriguez EO # 0.1 103/ul Normal 0.0-0.7 [facility] Comment on above: Performed By: #### C BC #### [facility] [address] [place] [address] Dr. Irene Rodriguez Eosinophils/100 WBC (Bld) 1.1 % Normal 0.9-7.0 [facility] Comment on above: Performed By: #### C BC #### [facility] [address] [place] [address] Dr. Irene Rodriguez Erythrocyte distribution width (RBC) [Ratio] 13.9 % Normal 11.0-15.0 [facility] Comment on above: Performed By: #### C BC #### [facility] [address] [place] [address] Dr. Irene Rodriguez Hematocrit (Bld) [Volume fraction] 46.8 % Normal 36.0-48.0 [facility] Comment on above: Performed By: #### C BC #### [facility] [address] [place] [address] Dr. Irene Rodriguez Hemoglobin (Bld) [Mass/Vol] 15.1 g/dL Normal 12.0-16.0 [facility] Comment on above: Performed By: #### C BC #### [facility] [address] [place] [address] Dr. Irene Rodriguez IG # 0.17 10e3/ul Critically high 0.00-0.03 [facility] Comment on above: Performed By: #### C BC #### [facility] [address] [place] [address] Dr. Irene Rodriguez IG % 1.3 % Critically high 0.0-0.5 [facility] Comment on above: Performed By: #### C BC #### [facility] [address] [place] [address] Dr. Irene Rodriguez LYMPH # 2.3 103/ul Normal 1.2-3.8 [facility] Comment on above: Performed By: #### C BC #### [facility] [address] [place] [address] Dr. Irene Rodriguez Lymphocytes/100 WBC (Bld) 17.6 % Critically low 20.5-60.0 [facility] Comment on above: Performed By: #### C BC #### [facility] [address] [place] [address] Dr. Irene Rodriguez MANUAL DIFF REQ NO Normal [facility] Comment on above: Performed By: #### C BC #### [facility] [address] [place] [address] Dr. Irene Rodriguez MCH (RBC) [Entitic mass] 28.7 pg Normal 26.7-34.0 [facility] Comment on above: Performed By: #### C BC #### [facility] [address] [place] [address] Dr. Irene Rodriguez MCHC (RBC) [Mass/Vol] 32.3 g/dL Normal 29.9-35.2 [facility] Comment on above: Performed By: #### C BC #### [facility] [address] [place] [address] Dr. Irene Rodriguez MCV (RBC) [Entitic vol] 89.0 fL Normal 81.0-99.0 [facility] Comment on above: Performed By: #### C BC #### [facility] [address] [place] [address] Dr. Irene Rodriguez MONO # 0.6 103/ul Normal 0.3-0.8 [facility] Comment on above: Performed By: #### C BC #### [facility] [address] [place] [address] Dr. Irene Rodriguez Monocytes/100 WBC (Bld) 4.5 % Normal 1.7-12.0 [facility] Comment on above: Performed By: #### C BC #### [facility] [address] [place] [address] Dr. Irene Rodriguez NEUT # 9.9 103/ul Critically high 1.4-6.5 [facility] Comment on above: Performed By: #### C BC #### [facility] [address] [place] [address] Dr. Irene Rodriguez Neutrophils/100 WBC (Bld) 75.2 % Critically high 43.0-75.0 [facility] Comment on above: Performed By: #### C BC #### [facility] [address] [place] [address] Dr. Irene Rodriguez Platelet mean volume (Bld) [Entitic vol] 10.5 fL Normal 9.5-13.5 [facility] Comment on above: Performed By: #### C BC #### [facility] [address] [place] [address] Dr. Irene Rodriguez PLT 282 103/ul Normal 150-450 [facility] Comment on above: Performed By: #### C BC #### [facility] [address] [place] [address] Dr. Irene Rodriguez RBC 5.26 106/ul Normal 4.20-5.40 [facility] Comment on above: Performed By: #### C BC #### [facility] [address] [place] [address] [address] Irene Rodriguez WBC 13.2 103/ul Critically high 4.0-11.0 [facility] Comment on above: Performed By: #### C BC #### [facility] [address] [address] [address] Irene Rodriguez FREE T4on 08-01-2021 Free T4 [Mass/Vol] 1.09 ng/dL Normal 0.76-1.46 [facility] Comment on above: Performed By: #### F T4 #### [facility] [address] [place] [address] Dr. Irene Rodriguez LIPID PROFILEon 08-01-2021 CHOL-HDL RATIO NORM SEE BELOW Normal [facility] Comment on above: Result Comment: 3.3 - 4.4 LOW RISK 4.4 - 7.1 AVERAGE RISK 7.1 - 11.0 MODERATE RISK >11.0 HIGH RISK Performed By: #### L IPID, TSH, CMP #### [facility] [address] [place] [address] Dr. Irene Rodriguez Cholesterol [Mass/Vol] 179 mg/dL Normal <=200 [facility] Comment on above: Performed By: #### L IPID, TSH, CMP #### [facility] [address] [place] [address] Dr. Irene Rodriguez Cholesterol in HDL [Mass/Vol] 48 mg/dL Normal 40-60 [facility] Comment on above: Performed By: #### L IPID, TSH, CMP #### [facility] [address] [address] [address] Irene Rodriguez Cholesterol in LDL [Mass/Vol] 109.2 mg/dL Normal [facility] Comment on above: Performed By: #### L IPID, TSH, CMP #### [facility] [address] [place] [address] Dr. Irene Rodriguez Cholesterol.total/Ch olesterol in HDL [Mass ratio] 3.7 {ratio} Normal [facility] Comment on above: Performed By: #### L IPID, TSH, CMP #### [facility] [address] [address] [address] Irene Rodriguez HDL NORMAL > or = 60 mg/dl - LOW CARDIOVASCULAR RISK <40 mg/dl - HIGH CARDIOVASCULAR RISK Normal [facility] Comment on above: Performed By: #### L IPID, TSH, CMP #### [facility] [address] [address] [address] Irene Rodriguez LDL CALC NORMAL SEE BELOW Normal [facility] Comment on above: Result Comment: <100 mg/dl OPTIMAL 100 - 129 mg/dl NEAR OR ABOVE OPTIMAL 130 - 159 mg/dl BORDERLINE HIGH 160 - 189 mg/dl HIGH >190 mg/dl VERY HIGH Performed By: #### L IPID, TSH, CMP #### [facility] [address] [address] [address] Irene Rodriguez Triglyceride [Mass/Vol] 109 mg/dL Normal <=150 [facility] Comment on above: Performed By: #### L IPID, TSH, CMP #### [facility] [address] [address] [address] Irene Rodriguez VLDL CALC 21.8 mg/dL Normal [facility] Comment on above: Performed By: #### L IPID, TSH, CMP #### [facility] [address] [address] [address] Irene Rodriguez MG MAMM SCREEN 3D JAN CADon 08-01-2021 MG MAMM SCREEN 3D JAN CAD Patient: CHRISTINA ALEX Exam Date: 08/01/2021 : 1965 Gender:F Ordering : DR RACHELE ELDRIDGE M.D. Admission #: [id number] Family : Order #: [id number] CLICK HERE TO VIEW EXAM RADIOLOGY REPORT [...] Niece with breast cancer at age 33; Grandmother-materna l with breast cancer at age 30; Aunt-maternal with breast cancer at age 40; Mother with ovarian cancer at age 68; Mother with kidney cancer at age 48. LOCATION: [facility] BREAST COMPOSITION: Scattered areas fibroglandular density. FINDINGS: [...] MD on 08/01/2021 at 10:17 Normal [facility] PROF 14(COMP METB)on 022 Albumin [Mass/Vol] 3.1 g/dL Critically low 3.4-5.0 Th e [facility] Comment on above: Performed By: #### L IPID, TSH, CMP #### [facility] [address] [place] [address] Dr. Irene Rodriguez Albumin/Globulin [Mass ratio] 0.8 {ratio} Normal [facility] Comment on above: Performed By: #### L IPID, TSH, CMP #### [facility] [address] [address] [address] Irene Rodriguez ALP [Catalytic activity/Vol] 92 U/L Normal 46-116 [facility] Comment on above: Performed By: #### L IPID, TSH, CMP #### [facility] [address] [address] [address] Irene Rodriguez ALT [Catalytic activity/Vol] 22 U/L Normal 14-59 [facility] Comment on above: Performed By: #### L IPID, TSH, CMP #### [facility] [address] [address] [address] Irene Rodriguez Anion gap [Moles/Vol] 10.3 mmol/L Normal [facility] Comment on above: Performed By: #### L IPID, TSH, CMP #### [facility] [address] [address] [address] Irene Rodriguez AST [Catalytic activity/Vol] 9 U/L Critically low 15-37 [facility] Comment on above: Performed By: #### L IPID, TSH, CMP #### [facility] [address] [place] [address] Dr. Irene Rodriguez Bilirubin [Mass/Vol] 0.6 mg/dL Normal 0.2-1.0 [facility] Comment on above: Performed By: #### L IPID, TSH, CMP #### [facility] [address] [place] [address] Dr. Irene Rodriguez Calcium [Mass/Vol] 8.7 mg/dL Normal 8.5-10.[address] [facility] Comment on above: Performed By: #### L IPID, TSH, CMP #### [facility] [address] [place] [address] Dr. Irene Rodriguez Chloride [Moles/Vol] 106 mmol/L Normal 98-107 [facility] Comment on above: Performed By: #### L IPID, TSH, CMP #### [facility] [address] [place] [address] Dr. Irene Rodriguez CO2 [Moles/Vol] 26.7 mmol/L Normal 21.0-32.0 [facility] Comment on above: Performed By: #### L IPID, TSH, CMP #### [facility] [address] [place] [address] Dr. Irene Rodriguez Creatinine [Mass/Vol] 0.84 mg/dL Normal 0.55-1.02 [facility] Comment on above: Performed By: #### L IPID, TSH, CMP #### [facility] [address] [place] [address] Dr. Irene Rodriguez EGFR-AF SUDANESE >60 Normal >=60 [facility] Comment on above: Performed By: #### L IPID, TSH, CMP #### [facility] [address] [place] [address] Dr. Irene Rodriguez EGFR-NON AF SUDANESE >60 Normal >=60 [facility] Comment on above: Performed By: #### L IPID, TSH, CMP #### [facility] [address] [address] [address] Irene Rodriguez Globulin (S) [Mass/Vol] 4.1 g/dL Normal [facility] Comment on above: Performed By: #### L IPID, TSH, CMP #### [facility] [address] [address] [address] Irene Rodriguez Glucose [Mass/Vol] 96 mg/dL Normal 74-[address] [facility] Comment on above: Performed By: #### L IPID, TSH, CMP #### [facility] [address] [address] [address] Irene Rodriguez Potassium [Moles/Vol] 4.0 mmol/L Normal 3.5-5.1 [facility] Comment on above: Performed By: #### L IPID, TSH, CMP #### [facility] [address] [address] [address] Irene Rodriguez Protein [Mass/Vol] 7.2 g/dL Normal 6.4-8.[address] [facility] Comment on above: Performed By: #### L IPID, TSH, CMP #### [facility] [address] [address] [address] Irene Rodriguez Sodium [Moles/Vol] 139 mmol/L Normal 136-[address] [facility] Comment on above: Performed By: #### L IPID, TSH, CMP #### [facility] [address] [address] [address] Irene Rodriguez Urea nitrogen [Mass/Vol] 17.0 mg/dL Normal 7.0-18.0 [facility] Comment on above: Performed By: #### L IPID, TSH, CMP #### [facility] [address] [address] [address] Irene Rodriguez Urea nitrogen/Creatinine [Mass ratio] 20.2 mg/mg Normal [facility] Comment on above: Performed By: #### L IPID, TSH, CMP #### [facility] [address] [place], [place] [address] Dr. Irene Rodriguez TSHon 08-01-2021 TSH 3.517 uIU/mL Normal 0.358-3.740 [facility] Comment on above: Performed By: #### L IPID, TSH, CMP #### [facility] [id number] Irene Rodriguez TSH RANGE SEE BELOW Normal [facility] Comment on above: Result Comment: <0.3 4 UIU/ml HYPERTHYROID 0.34-5.60 UIU/ml EUTHYROID >5.60 UIU/ml HYPOTHYROID Performed By: #### L IPID, TSH, CMP #### [facility] [address] [address] [address] Irene Rodriguez XR DEXA BONE DENSITYon [...] by: JAVED ALBARADO Date: 2021-08-01 16:12 Normal [facility] XR knee BI 3Von 07-25-2021 XR knee BI 3V [facility] [employer] Other XR knee BI 3V [facility] [employer] Other XR knee BI 3V [address] [place] [address] [facility] [place] Other XR knee BI 3V [address] [facility] [place] Other XR knee BI 3V [facility] Other XR knee BI 3V Signed [email or web address] Other XR knee BI 3V Patient: Christina Alex MR#: [id number] [email or web address] Other XR knee BI 3V 504 [email or web address] Other XR knee BI 3V : 1965 Acct:[id number] [email or web address] Other XR knee BI 3V Age/Sex: 56 / F ADM Date: 07/25/21 [email or web address] Other XR knee BI 3V Loc: [facility] Room: Type: [facility] [email or web address] Other XR knee BI 3V Attending Dr: Jonas Colbert DO [email or web address] Other XR knee BI 3V Ordering Provider: Jonas Colbert DO [email or web address] Other XR knee BI 3V Date of Service: 07/25/21 [email or web address] Other XR knee BI 3V XR/XR knee BI 3V - NOT FOR ER USE: PAIN [email or web address] Other XR knee BI 3V Copies to: Jonas Colbert DO [email or web address] Other XR knee BI 3V BILATERAL KNEES - 3 views each [email or web address] Other XR knee BI 3V CLINICAL HISTORY: Bilateral knee pain for 2 weeks. [email or web address] Other XR knee BI 3V COMPARISON: None. [employer] Other XR knee BI 3V FINDINGS: Right knee: No significant joint effusion. No acute bony process. Moderate degenerative [email or web address] Other XR knee BI 3V changes with medial weightbearing joint space narrowing. [email or web address] Other XR knee BI 3V Left knee: No significant knee joint effusion. No acute bony process. Moderate degenerative changes [email or web address] Other XR knee BI 3V with medial weightbearing joint space narrowing. [email or web address] Other XR knee BI 3V XR/XR knee BI 3V - NOT FOR ER USE [email or web address] Other XR knee BI 3V IMPRESSION: [employer] Other XR knee BI 3V MODERATE DEGENERATIVE CHANGES OF BOTH KNEES WITHOUT ACUTE BONY PROCESS. [email or web address] Other XR knee BI 3V Impression dictated by: Mau Hill Jr., D.OShmuel07/25/2021 9:58 AM [email or web address] Other XR knee BI 3V Dictation Location: [place] [address] [email or web address] Other XR knee BI 3V Transcribed By: PWS 07/25/21 09 [email or web address] Other XR knee BI 3V Dictated By: Mau Hill Jr, DO 07/25/21 [facility] [email or web address] Other XR knee BI 3V Signed By: [email or web address] Other XR knee BI 3V 07/25/21 [facility] [employer] Other Vital Signs Date Time Vital Sign Value Performing Clinician Facility 10-15-2023 08:51-0400 Body height 170.18 cm MD Rachele Eldridge Work Phone: [facility] 10-15-2023 08:51-0400 Body mass index (BMI) [Ratio] 42.3 kg/m2 MD Rachele Eldridge Work Phone: [facility] 10-15-2023 08:51-0400 Body weight 122.46 kg MD Rachele Eldridge Work Phone: [facility] 09-25-2023 14:140400 Body height 168.91 cm MD Rachele Eldridge Work Phone: [facility] 09-25-2023 14:140400 Body mass index (BMI) [Ratio] 45.8 kg/m2 MD Rachele Eldridge Work Phone: [facility] 09-25-2023 14:14-0400 Body weight 130.63 kg MD Rachele Eldridge Work Phone: [facility] 09-25-2023 14:14-0400 Diastolic blood pressure 80 mm[Hg] MD Rachele Eldridge Work Phone: [facility] 09-25-2023 14:14-0400 Heart rate 83 /min MD Rachele Eldridge Work Phone: [facility] 09-25-2023 14:14-0400 Systolic blood pressure 125 mm[Hg] MD Rachele Eldridge Work Phone: [facility] 01-24-2023 11:30-0500 Body height 168.91 cm Rachele Eldridge Other [facility] [employer] Other 01-24-2023 11:30-0500 Body mass index (BMI) [Ratio] 44.13 kg/m2 Rachele Eldridge Other [facility] [employer] Other 01-24-2023 11:30-0500 Body weight 125.92 kg Rachele Eldridge Other [email or web address] Other 01-24-2023 11:30-0500 Diastolic blood pressure 81 mm[Hg] Rachele Eldridge Other [email or web address] Other 01-24-2023 11:30-0500 SaO2% (BldA) [Mass fraction] 97 % Rachele Eldridge Other [email or web address] Other 01-24-2023 11:30-0500 Systolic blood pressure 137 mm[Hg] Rachele Eldridge Other [email or web address] Other 04-15-2022 08:30-0500 Body height 168.91 cm Rachele Eldridge Other [email or web address] Other 04-15-2022 08:30-0500 Body mass index (BMI) [Ratio] 42.44 kg/m2 Rachele Eldridge Other [email or web address] Other 04-15-2022 08:30-0500 Body weight 121.11 kg Rachele Eldridge Other [email or web address] Other 04-15-2022 08:30-0500 Diastolic blood pressure 88 mm[Hg] Rachele Eldridge Other [email or web address] Other 04-15-2022 08:30-0500 SaO2% (BldA) [Mass fraction] 97 % Rachele Eldridge Other [email or web address] Other 04-15-2022 08:30-0500 Systolic blood pressure 130 mm[Hg] Rachele Eldridge Other [email or web address] Other 07-25-2021 09:30-0400 Body height 170.18 cm Jonas Colbert Other [email or web address] Other 07-25-2021 09:30-0400 Body mass index (BMI) [Ratio] 39.15 kg/m2 Jonas Colbert Other [email or web address] Other 07-25-2021 09:30-0400 Body weight 113.4 kg Jonas Colbert Other [email or web address] Other Encounters Encounter Date Encounter Type Care Provider Facility Start: 05-07-2024 End: 05-07-2024 Patient encounter procedure Rachele Eldridge MD Work Phone: [facility] Work Phone: Start: 05-07-2024 End: 05-07-2024 ambulatory Rachele Eldridge MD Work Phone: [facility] Work Phone: Start: 10-15-2023 End: 10-15-2023 ambulatory MD Rachele Eldridge Work Phone: [facility] Work Phone: Start: 10-15-2023 End: 10-15-2023 Patient encounter procedure MD Rachele Eldridge Work Phone[facility] Work Phone: Start: 09-25-2023 End: 09-25-2023 Encounter for general adult medical examination without abnormal findings MD Rachele Eldridge Work Phone: [facility] Start: 09-25-2023 End: 09-25-2023 Patient encounter procedure MD Rachele Eldridge Work Phone: [facility] Work Phone: Start: 09-18-2023 Non-patient / Non-visit MD Yvette Eldridge Work Phone: [facility] Work Phone: Start: 09-18-2023 Patient encounter status MD Lisette Eldridge Work Phone: [facility] Start: 02-20-2023 End: 02-20-2023 ambulatory Rachele Eldridge Other [email or web address] Other Start: 02-20-2023 Telephone encounter Rachele Eldridge [facility] Start: 02-12-2023 End: 02-12-2023 ambulatory Rachele Eldridge Other [email or web address] Other Start: 02-12-2023 Telephone encounter Rachele Eldridge [facility] Start: 02-11-2023 End: 02-11-2023 ambulatory Rachele Eldridge Other [email or web address] Other Start: 02-11-2023 Telephone encounter Rachele Eldridge [facility] Start: 02-03-2023 End: 02-03-2023 ambulatory Rachele Eldridge Other [email or web address] Other Start: 02-03-2023 Telephone encounter Rachele Jazmyn [facility] Start: 01-24-2023 End: 01-24-2023 ambulatory Rachele Eldridge Other [email or web address] Other Start: 01-24-2023 Encounter by aleida r catarino Eldridge [facility] Start: 01-24-2023 Office outpatient vi sit 15 minutes Rachele Eldridge [facility] Start: 05-27-2022 End: 05-27-2022 ambulatory MD Rachele Eldridge Work Phone: [facility] Work Phone: Start: 05-27-2022 End: 05-27-2022 Discharged Recurring MD Rachele Eldridge Work Phone: [facility] Start: 05-23-2022 End: 05-23-2022 ambulatory Rachele Eldridge Other [email or web address] Other Start: 05-23-2022 Telephone encounter Rachele Jazmyn [facility] Start: 05-21-2022 End: 05-21-2022 ambulatory Rachele Eldridge Other [email or web address] Other Start: 05-21-2022 Telephone encounter Rachele Jazmyn [facility] Start: 04-17-2022 End: 04-17-2022 ambulatory Rachele Jazmyn Other [email or web address] Other Start: 04-17-2022 Telephone encounter Rachele Jazmyn [facility] Start: 04-15-2022 End: 04-15-2022 ambulatory Rachele Eldridge Other [email or web address] Other Start: 04-15-2022 Office outpatient vi sit 15 minutes Rachele Eldridge [facility] Start: 03-18-2022 (Televisit) Televisit Rachele Eldridge [facility] Start: 03-18-2022 End: 03-18-2022 ambulatory Rachele Eldridge Other [email or web address] Other Start: 08-04-2021 Encounter for genera l adult medical examination without abnormal findings DR RACHELE ELDRIDGE [facility] Start: 08-01-2021 End: 09-21-2021 ambulatory JONAS COLBERT Facility:[facility] Start: 08-01-2021 End: 08-02-[address] Javed Albarado Facility:[facility] Start: 08-01-2021 End: 08-02-2021 Encounter for general adult medical examination without abnormal findings DR Javed Albarado Facility:[facility] Start: 07-27-2021 Adult health examination Marah Eldridge Other [email or web address] Other Start: 07-27-2021 Gynecological examin ation normal Rachele Eldridge Other [email or web address] Other Start: 07-25-2021 End: 07-25-2021 ambulatory Jonas Colbert Other [email or web address] Other Start: 07-25-2021 Office outpatient ne w 45 minutes [facility] Procedures Date Procedure Procedure Detail Performing Clinician Start: 05-07-2024 Mammography of left breast Rachele Eldridge MD Work Phone: Start: 05-07-2024 Ultrasonography of l eft breast Rachele Eldridge MD Work Phone: Start: 10-15-2023 Plain X-ray of right hip MD Rachele Eldridge Work Phone: Start: 10-15-2023 X-ray of both knees MD Rachele Eldridge Work Phone: Screening for malign ant neoplasm of breast Rachele Eldridge Other Screening for malign ant neoplasm of colon Rachele Eldridge Other Immunizations Immunization Date Immunization Notes Care Provider Fa cili 01-03-2018 influenza virus vaccine, split virus (incl. purified surface antigen) Rachele Eldridge Other [facility] [employer] Other 01-03-2018 influenza virus vaccine, unspecified formulation MD Rachele Eldridge Work Phone: [facility] 12-17-2016 tetanus and diphther ia toxoids, adsorbed, preservative free, for adult use (5 Lf of tetanus toxoid and 2 Lf of diphtheria toxoid) Rachele Eldridge Other [facility] 07-08-2016 diphtheria, tetanus toxoids and acellular pertussis vaccine, unspecified formulation Rachele Eldridge Other [facility] 12-11-2015 influenza virus vaccine, split virus (incl. purified surface antigen) Rachele Eldridge Other [facility] [employer] Other 12-11-2015 influenza virus vaccine, unspecified formulation MD Rachele Eldridge Work Phone: [facility] 01-22-2015 influenza virus vaccine, split virus (incl. purified surface antigen) Rachele Eldridge Other [facility] [employer] Other 01-22-2015 influenza virus vaccine, unspecified formulation MD Rachele Eldridge Work Phone: [facility] Payers Date Payer Category Payer Self-pay [id number] 1965 Unknown [id number] [id number] [id number] 1965 Unknown [id number] [id number] [id number] 1961 Unknown [id number] 2. [id number] Unknown [id number] 2.16.8 [id number] Unknown [id number] 2.16.8 [id number] Social History Date Type Detail Facility Sex Assigned At [facility] [place] Other Start: 1965 Sex Assigned At Female F [facility] Tobacco smoking stat us NHIS Unknown if ever smoked [facility] Work Phone: Start: 05-08-2024 Sex Female (finding) [facility] Clinical Notes 07-25-2021 to 05-07-2024 Note Date & Type Note Facility 05-07-2024 Radiology Diagnostic study note [facility] Main [place] [address] [place] [address] Ultrasound Report Signed Patient: Christina Alex MR#: [id number] : 1965 Acct:[id number] Age/Sex: 59 / F ADM Date: 5 Loc: [place] Room: Type: [facility] Attending Dr: Rachele Eldridge MD Ordering Provider: Rachele Eldridge MD Date of Service: 05/07/24 MM/MM diagnostic mammo LT w/CAD: R92.8 ([id number]) US/US breast LT limited: 6MONTH F/UP Copies to: Rachele Eldridge MD~ CLINICAL DATA: Six-month follow-up cyst left breast Left DIAGNOSTIC MAMMOGRAM - WITH TOMOSYNTHESIS AND CAD , leftLIMITED BREAST ULTRASOUND COMPARISON:Outside mammography 09/16/2022 and 09/18/2023. Left breast ultrasound 10/03/2023 Tomosynthesis imaging was obtained using low-dose digital technique. This examination was reviewed with the aid of CAD. Additional ultrasound imaging was also obtained. Mammogram: The left breast is composed of scattered fibroglandular densities. No new areas of architectural distortion, worrisome masses or suspicious microcalcifications. Ultrasound: At the 6:00 position of the left breast approximately 4 to 5 cm from the nipple,the previously identified complex cyst is once again noted measuring 11 x 8 x 6 mm. No solid component is seen. US/US breast LT limited IMPRESSION: NO MAMMOGRAPHIC OR ULTRASOUND EVIDENCE OF MALIGNANCY. PATIENT SHOULD RETURN FOR BILATERAL SCREENING MAMMOGRAPHY IN AUGUST 2024. RESULT CODE: 2 Benign Findings(s) DENSITY CODE: 2 (approximately 25-50% glandular) There are scattered areas of fibroglandular density. FOLLOW UP: 6M The false-negative rate of mammography is approximately 10-percent. Management of a palpable abnormality must be based on clinical grounds. Impression dictated by: Mau Hill Jr., D.O.05/07/2024 9:34 AM Dictation Location: [facility] Tech: Evangelina Blas; Dolores Singh Transcribed By: MARY ANN 05/07/24933 Dictated By: Mau Hill Jr, DO 05/07/2428 Signed By: 05/07/24933 [facility] 02-11-2023 Evaluation note Encounter Date Diagnosis Assessment Notes Jan, Hypothyroidism, unspecified type (ICD-10 - E03.9) [email or web address] Other 12-01-2023 Evaluation note* Encounter Date Diagnosis Assessment Notes Treatment Notes Treatment Clinical Notes Jan, Chronic cough (ICD-10 - R05.3) Discussed cough and hoarseness related to cold weather. WIll trial inhaler prior to exposure to cold weather. Jan, Elevated blood pressure reading (ICD-10 - R03.0) Will monitor bp through next week and call w an update. Discussed multiple stressors in life right now that are likely contributing to her elevated bp reading. [email or web address] Other 02-20-2023 Evaluation note* Encounter Date Diagnosis Assessment Notes Treatment Notes Treatment Clinical Notes Mar, Gastroesophageal ref lux disease without esophagitis (ICD-10 - K21.9) Add med. 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 [email or web address] Other 01-23-2023 Evaluation note* Encounter Date Diagnosis Assessment Notes Treatment Notes Treatment Clinical Notes Feb, Laryngitis (ICD-10 - J04.0) 3 weeks of acute laryngitis. Patient requests referral to Dr. Sheth if her symptoms do not improve. [email or web address] Other 06-01-2022 Evaluation note* Encounter Date Diagnosis Assessment Notes Treatment Notes Treatment Clinical Notes Jul, Pain in right knee (ICD-10 - M25.561) Jul, Primary osteoarthritis of both knees (ICD-10 - M17.0) Christina presents with bilateral knee DJD. At this juncture we have discussed the findings and diagnosis as well as personally reviewed appropriate imaging and performed interpretation of related testing and examination with the patient in office today. Prior medical notes from Dr. Eldridge and history have been reviewed. Today we [...] including gentle non-impact motion exercise and non-steroidal anti-inflammatory medication. We discussed the use of occasional cortisone injections that can provide pain relief as well as hyaluronan lubricant injection. Patient given order for physical therapy. We performed a marcaine / kenalog cortisone injection into the bilateral knee joint under sterile technique. Patient tolerated the injection well without adverse reaction. Patient given AAOS information handout. Prescription for meloxicam sent into [...] as documented in the electronic medical record. [email or web address] Other Evaluation noteNo [facility] [place] Other Evaluation noteNo assessment information available [facility] Work Phone: Evaluation note* Diagnosis Onset Date Resolution Status Abnormal mammogram acute Hypothyroid acute Osteoarthritis of knees, bilateral acute Wellness examination acute Body mass index [BMI] 39.0-39.9, adult acute Greater trochanteric bursitis acute Osteoarthritis of knees, bilateral acute Other obesity due to excess calories acute [facility] Work Phone: History general Narrative - Reported* Type Description Date Medical History Hypothyroidism Surgical History arthroscopic knee surgery right 2016 Surgical History carpal tunnel release bilateral 2015 Surgical History hysterectomy 2004 Surgical History plantar fasciotomy 2010 Surgical History tonsillectomy and adenoidectomy 1982 Surgical History x2 [email or web address] Other [employer] general Narrative - Reported* Type Description Date Medical History Arthritis of both knees Medical History Obesity due to excess calories Medical History Adult body mass index 39.0-39.9 Medical History Family history of malignant neop lasm of breast Medical History Acute pain of left knee Medical History Hypothyroidism Medical History Menopause Medical History Spasmatic dysphonia Surgical History arthroscopic knee surgery right 2016 Surgical History carpal tunnel release bilateral 2015 Surgical History hysterectomy 2004 Surgical History plantar fasciotomy 2010 Surgical History tonsillectomy and adenoidectomy 1982 Surgical History x2 Hospitalization History SEE SURGICAL HX [email or web address] Other Summary Purpose Family History No Family History Records Found Relationship Condition Age at Onset Recorded Date/T govind father Heart disease Unknown Unknown mother Malignant neoplasm Unknown Advance Directives No Advanced Directives Records Found Advance Directive Response Recorded Date/ Time Advance Directives No July 25 10:23am Reason for Referral Reason 03/20/22 Call Mina Shelton [phone] Mikal Vasquez can't talk at all! Diagnosis 1 Laryngitis (J04.0) Referral Organization [facility] wallace Referring Provider First Name Rachele Referring Provider Last Name Jazmyn Referring Provider Specialty Family [facility] Referred Organization [facility] Referred Provider Gino Sheth Referred Address ,[place], [place],[address] Referred Provider Specialty Otolaryngolo gy Referral Priority Routine Referral Appointment Date 2022-03-20 General Notes Garyconchita Steffany 10:46:08 AM >received today, CALL MINA TO SCHEDULE!! Dimitry Steffany 03/19/2022 10:47:47 AM >notes locked, ins card attached, referral faxed P2P Steffany Moraes 03/26/2022 09:34:04 AM >faxed first attempt letter Dimitry Steffany 04/02/2022 03:16:41 PM >pt seen on 03/20 and 04/01. 03/20 note in chart and reviewed out. closing referral at this time Chief Complaint and Reason for Visit Chief Complaint J38.3 Chief Complaint wellness OP SP BILAT KNEE PAIN/ RT HIP PAIN M17.0 - Bilateral primary osteoarthritis of knee M Reason for Visit Abnormal mammogram Hypothyroid Osteoarthritis of knees, bilateral Wellness examination Body mass index [BMI] 39.0-39.9, adult Greater trochanteric bursitis Osteoarthritis of knees, bilateral Other obesity due to excess calories Chief Complaint Admit Date R92.8 May 07, 2024 8:1 3am Additional Source Comments REASON FOR VISIT (unrecogniz ed section and content) Bilateral Knee PainSickmessa gediscussion about her voiceREFILLRefillInhalerHigh BPbpsrefillrefillthyroid labs INFORMATION SOURCE (unrecogn ized section and content) DATE CREATED AUTHOR 09/27/2021 [facility] DATE CREATED AUTHOR AUTHOR'S ORGANIZ ATION 05/11/2024 [facility] Care Teams (unrecognized sec tion and content) Team Status: Active Member Role Status Dates Rachele Eldridge MD Primary Care Provider Active Team Status: Inactive Member Role Status Dates Rachele Eldridge MD Primary Care Provide r, Attending Provider Active Start: May 07, 2024 End: May 07, 2024 Team Status: Active Member Role Status Dates Rachele Eldridge MD Primary Care Provide r, Attending Provider Active Start: September 18, 2023 Team Status: Inactive Member Role Status Dates Rachele Eldridge MD Primary Care Provide r, Attending Provider Active Start: September 25, 2023 End: September 25, 2023 Team Status: Inactive Member Role Status Dates Rachele Eldridge MD Primary Care Provider Active Start: October 15, 2023 End: October 15, 2023 oJnas Colbert DO Active Start: October 15, 2023 End: October 15, 2023 TORO Walsh Attending Provider Active Start: October 15, 2023 End: October 15, 2023 Team Status: Inactive Member Role Status Dates Rachele Eldridge MD Primary Care Provider Active Start: October 15, 2023 End: October 15, 2023 Jonas Colbert DO Attending Provider Active S tart: October 15, 2023 End: October 15, 2023 Team Status: Inactive Member Role Status Dates Rachele Eldridge MD Primary Care Provider Active Gino Sheth [...] BE BASED ON THE PRIMARY CLINICAL RECORDS. [employer] provides no warranty or guarantee of the accuracy or completeness of information in this document.
[2024-05-26] MEDS: ONDANSETRON 4 MG RAPDIS TABLET SL (09:50)
[2024-05-26 10:47] LABS: C. Difficile PCR NEGATIVE
[2024-05-26 11:08] VITALS: PULSE 74; O2SAT 99
--- NOTE | 2024-05-26 12:00 | ED.GENADUL1 ---
HPI HPI - General Adult General Chief complaint: Nausea/Vomiting/Diarrhea Stated complaint: POSSIBLE C-DIFF Time Seen by Provider: 05/26/24 09:39 Source: patient Mode of arrival: walk-in Limitations: no limitations History of Present Illness HPI narrative: The patient is a 59-year-old old female is coming to the ER with 3 days history of nausea vomiting and diarrhea, symptoms are getting better she mentioned that she is worried about C. difficile because she had that 6 years ago Patient had no recent history of use of antibiotic and she also had no fever no chills no specific abdominal pain The patient has been taking care of her grandkids at home Related Data Home Medications ?Medication ?Instructions ?Recorded ?Confirmed diclofenac sodium 75 mg 75 mg PO BID 05/26/24 05/26/24 tablet,delayed release levothyroxine 75 mcg tablet 75 mcg PO DAILY 05/26/24 05/26/24 (Synthroid) Previous Rx's ?Medication ?Instructions ?Recorded ondansetron 4 mg disintegrating 4 mg PO Q8H PRN nausea and 05/26/24 tablet vomiting 3 days #10 tabs Allergies Allergy/AdvReac Type Severity Reaction Status Date / Time No Known Drug Allergies Allergy Verified 11/16/22 14:16 Opioid HPI Opioid Management Most Recent Opioid Data: No Data to Display Review of Systems ROS Status of ROS 10 or more systems reviewed and unremarkable except as noted in history and below Exam Narrative Exam Narrative: Nurses notes and vital signs reviewed and patient is not hypoxic. General: Well-appearing and in no apparent distress. Skin: Warm, dry, no pallor noted. No rash. Head: Normocephalic, atraumatic. Neck: Supple, non-tender. Cardiovascular: Regular Rate and Rhythm without murmur, gallop or rub. Respiratory: No accessory muscle use or respiratory distress. Lungs are clear to auscultation, no wheezing, rales or rhonchi Chest Wall: no tenderness Back: No midline thoracic or lumbar vertebral tenderness. No CVA tenderness Musculoskeletal: normal ROM, no calf or popliteal tenderness, no lower extremity edema/swelling GI: Abdomen is soft, non-distended. Normal bowel sounds. No masses appreciated. No tenderness to palpation. No rebound, guarding, or rigidity noted. Neurological: A&O x4. No cranial nerve dysfunction observed. Constitutional Vital Signs, click to edit/add: Last Vital Signs Temp 98.7 F 05/26/24 09:35 Pulse 74 05/26/24 11:08 Resp 18 05/26/24 11:08 BP 167/101 H 05/26/24 09:35 Pulse Ox 99 05/26/24 11:08 O2 Del Method Room Air 05/26/24 11:08 Course Vital Signs Vital signs: Vital Signs Temperature 98.7 F 05/26/24 09:35 Pulse Rate 84 05/26/24 09:35 Respiratory Rate 18 05/26/24 09:35 Blood Pressure 167/101 H 05/26/24 09:35 Pulse Oximetry 100 05/26/24 09:35 Oxygen Delivery Method Room Air 05/26/24 09:35 Temperature 98.7 F 05/26/24 09:35 Pulse Rate 74 05/26/24 11:08 Respiratory Rate 18 05/26/24 11:08 Blood Pressure 167/101 H 05/26/24 09:35 Pulse Oximetry 99 05/26/24 11:08 Oxygen Delivery Method Room Air 05/26/24 11:08 Medical Decision Making [facility] Narrative Medical decision making narrative: The patient symptoms were more of a gastroenteritis symptoms she was provided with Zofran in the ER and she also had a stool sample that was tested negative for C. difficile Patient just to continue supportive care at home The patient is to follow up with primary care physician in next 2-3 days or to return to the emergency department should any of the signs or symptoms worsen or new symptoms develop. The patient agrees with the following Diagnosis and Treatment plan and the patient will be discharged home. Lab Data Labs: Lab Results 05/26/24 Range/Units 09:57 C. difficile Toxin PCR Negative Discharge Plan Discharge Chief Complaint: Nausea/Vomiting/Diarrhea Clinical Impression: Gastroenteritis Patient Disposition: Home, Self-Care Time of Disposition Decision: 10:26 Condition: Good Prescriptions / Home Meds: New ondansetron 4 mg tablet,disintegrating 4 mg PO Q8H PRN (Reason: nausea and vomiting) 3 Days Qty: 10 0RF No Action levothyroxine [Synthroid] 75 mcg tablet 75 mcg PO DAILY diclofenac sodium 75 mg tablet,delayed release (DR/EC) 75 mg PO BID Print Language: Kiswahili Instructions: Gastroenteritis (DC) Referrals: Rachele Payton MD [Primary Care Provider] - 1 week Discharge Date/Time: 05/26/24 11:08
== END 2024-05-26 11:08 | disposition home or self-care (01) ==
PROVIDERS: Emergency Provider Emergency Medicine; PCP Family Medicine
DX: K52.9 Noninfective gastroenteritis and colitis, unspecified (principal)
CPT/HCPCS: 87493; 99283; Q0162

== ENCOUNTER 2024-12-27 08:43 | Outpatient (OUT) | payer OTHER, SELFPAY ==
--- OUTSIDE RECORDS SUMMARY | 2024-12-27 08:47 | XMS_ITS | Clinical Summary ---
Author Organization [facility] Address [address] [place] [address] Care Team Providers Care Security Alarm Installer Name Role Phone Unavailable Primary Care Provider Unavailabl e Social History Tobacco UseTypesPacks/DayYears UsedDateSmoking Tobacco: Never Assessed CommentsUnknownSex and Gender InformationValueDate RecordedSex Assigned at Not on fileLegal XvrPdiwnq61/15/2023 6:48 PM EDTGender IdentityNot on fileSexual OrientationNot on file Last Filed Vital Signs Vital SignReadingTime TakenCommentsBlood Pressure--Pulse--Temperature-- Respiratory Rate--Oxygen Saturation--Inhaled Oxygen Concentration--Mupohl867 kg (250 lb)04/01/2022 12:00 PM CJHNjmzey877.2 cm (5' 7 )04/01/2022 12:00 PM ESTBody Mass Index39.16004/01/2022 12:00 PM EST Plan of Treatment Not on file Insurance * Guarantor: Christina Carrion TypeRelation to PatientDate of BirthPhone Billing AddressPersonal/IjhdehZfuo15/12/1966 [address] [place] [address]
[2024-12-27 09:36] LABS: Hematocrit 43.3 % (36.0-48.0); Hemoglobin 13.8 g/dL (12.0-16.0); Immature Granulocytes Abs Auto 0.04 10^3/uL (0.00-0.03); Immature Granulocytes Pct Auto 0.5 % (0.0-0.5); Lymphocytes Absolute Auto 1.7 10^3/uL (1.2-3.8); Mean Corpuscular HGB Conc 31.9 g/dL (29.9-35.2); Mean Corpuscular Hemoglobin 29.6 pg (26.7-34.0); Mean Corpuscular Volume 92.9 fL (81.0-99.0); Platelet Count 274 10^3/uL (150-450); Red Blood Count 4.66 10^6/uL (4.20-5.40); White Blood Count 8.1 10^3/uL (4.0-11.0)
[2024-12-27 09:56] LABS: Alanine Aminotransferase 24 U/L (14-59); Albumin Globulin Ratio 0.8; Albumin Level 3.1 g/dL (3.4-5.0); Alkaline Phosphatase 94 U/L (46-116); Anion Gap 11.2; Aspartate Amino Transferase 13 U/L (15-37); Blood Urea Nitrogen 13.0 mg/dL (7.0-18.0); Calcium 8.7 mg/dL (8.5-10.1); Carbon Dioxide 26.9 mmol/L (21.0-32.0); Chloride 107 mmol/L (98-107); Cholesterol 194 mg/dL (<=200); Estimated GFR (African America >60 (>=60 mL/min/1.73m^2); Estimated GFR (Non-African Ame >60 (>=60 mL/min/1.73m^2); Globulin 4.0 g/dL; Glucose 91 mg/dL (74-106); HDL Cholesterol 43 mg/dL (40-60); Potassium 4.1 mmol/L (3.5-5.1); Sodium 141 mmol/L (136-145); Thyroid Stimulating Hormone 2.986 uIU/mL (0.358-3.740); Total Protein 7.1 g/dL (6.4-8.2); Triglycerides 141 mg/dL (<=150); VLDL CHOLESTEROL 28.2 mg/dL
--- OUTSIDE RECORDS SUMMARY | 2024-12-27 11:45 | XMS_ITS | CCD ---
Author Organization [facility] CliniSyct Care Team Providers Care Dinkey Engine Firer Name Role Phone Jonas Colbert Unavailable JONAS [...] Care Provider DO Jonas Colbert Attending Provider [phone] Rachele Eldridge MD Primary Care Provider Rachele Eldridge MD Attending Provider [phone] Jonas Colebrt Admitting Unavailable Rachele Eldridge Primary Care Unavailable Jonas Colbert Attending Unavailable Rachele Eldridge Attending Unavailable Rachele Eldridge Primary Care Unavailable Rachele Eldridge Admitting Unavailable Rachele Eldridge MD Primary Care Provider Rachele Eldridge MD Attending Provider [phone] Allergies Allergy ClassificationReported Allergen(s)Allergy TypeDate of OnsetReaction(s) Facility (1 source)TriamcinoloneDrug [id number] [facility] Repository (11 sources)TriamcinoloneDrug AllergyUnknoNort[facility] myAchy Other (6 sources)patient allergy list reviewed by nurse or physiciaPropensity to adverse -31-2820Zamjzgz:[facility] HospitalRuckPack Other (6 sources)Allergies ReconciledPropensity to adverse reactions[facility] myAchy Other (1 source)TriamcinoloneDrug Ctfeuhh17-36-1649VliricvzrThe [facility] Medications Current Medications MedicationDrug Class(es)DatesSig (Normalized)Sig (Original)diclofenac sodium 75 mg delayed release oral tablet (4 sources)Nonsteroidal Anti-inflammatory DrugStart: 39-98-8389Dfpltoehrh Sodium 75 mg tablet,delayed release (DR/EC) Active 0 .ROUTE .COMPLEX 180 3 June 18, 2024 7:16am TAKE 1 TABLET TWICE A DAY Complies with drug therapyStart: 10-15-2023 End: 85-98-1076rfja 1 tablet by mouth twice dailyDiclofenac Sodium 75 mg tablet,delayed release (DR/EC) Discontinued 75 MG PO Twice daily 180 90 2 October 15, 2023 12:00am June 18, 2024 7:16amfamotidine 20 mg oral tablet (3 sources)Histamine-2 Receptor AntagonistStart: 61-70-8105uhlg 1 tablet by mouth once daily at bedtimeFamotidine (Pepcid Ac) 20 mg tablet Active 20 MG PO Daily at bedtime September 25, 2023 12:00am Complies with drug therapyfexofenadine (1 source)Histamine-1 Receptor AntagonistAllegra Ousiym90 hr fexofenadine hydrochloride 60 mg / pseudoephedrine hydrochloride 120 mg extended release oral tablet (5 sources)alpha-Adrenergic Agonist, Histamine-1 Receptor Antagonisttake 1 tablet by mouth every twelve hoursAllegra-D Allergy & Congestion 60-120 MG 1 tablet as needed Orally Twice a day Activelevothyroxine sodium 0.075 mg oral tablet (20 sources)l-ThyroxineStart: 05-12-2023 End: 06-62-6674tobq 1 tablet by mouth once daily in the morningLevothyroxine 75 mcg tablet Active 0 .ROUTE .COMPLEX 90 2 June 18, 2024 3:27pm TAKE 1 TABLET BY MOUTH EVERY DAY IN THE MORNING ON EMPTY STOMACH FOR 90 DAYS Complies with drug therapyStart: 05-12-2023 End: 39-67-8727ikfp 1 tablet by mouth once dailyLevothyroxine (Synthroid) 75 mcg tablet Discontinued 75 MCG PO Daily May 12, 2023 12:00am 2023 10:07amtake 1 tablet by mouth once daily in the morningSynthroid 75 MCG 1 tablet in the morning on an empty stomach Orally Once a day for 90 days Activetake 1 tablet by mouth once daily in the morningSynthroid 25 MCG 1 tablet in the morning on an empty stomach Orally Once a day for 90 days Activetake 1 tablet by mouth once daily in the morningSynthroid 25 MCG 1 tablet in the morning on an empty stomach Orally Once a day Activeomeprazole 40 mg delayed release oral capsule (5 sources)Proton Pump InhibitorStart: 37-19-3613gcgw 1 capsule by mouth once dailyOmeprazole 40 MG 1 capsule 30 minutes before morning meal Orally Once a day for 30 days Mar, Active Completed/Discontinued Medications MedicationDrug Class(es)DatesSig (Normalized)Sig (Original)[id number] 200 actuat albuterol 0.09 mg/actuat metered dose inhaler (9 sources)beta2-Adrenergic AgonistStart: 05-12-2023 End: 96-66-7226vylc 1 puff(s) by inhalation every four hoursAlbuterol Sulfate 90 mcg/actuation HFA aerosol inhaler Discontinued 2 PUFF INHALATION Every 4 hours May 12, 2023 12:00am December 24, 2024 11:39amStart: 56-47-4201sibm 2 puff(s) by inhalation every four hours as neededAlbuterol Sulfate HFA 108 (90 Base) MCG/ACT 2 puff Inhalation every 4 hrs prn Jan, ActiveStart: 52-48-4619euwl 2 puff(s) by inhalation every four hours as neededAlbuterol Sulfate HFA 108 (90 Base) MCG/ACT 2 puff Inhalation every 4 hrs prn Jan, Activemeloxicam 15 mg oral tablet (10 sources)Nonsteroidal Anti-inflammatory DrugStart: 05-12-2023 End: 72-62-2201Czndmdeie 15 mg tablet Discontinued 15 MG PO .PRN May 12, 2023 12:00am December 24, 2024 11:39amStart: 11-89-7371ddbw 1 tablet by mouth every twenty-four hoursMeloxicam 7.5 MG 1 tablet Orally Once a day for 30 day(s) Jul, ActiveMeloxicam 15 MG 1 tablet prn Activetriamcinolone acetonide 40 mg/ml injectable suspension (20 sources)CorticosteroidStart: 13-95-1830Mhxdexw-40 Jul, 40 mg Problems Active Problems Problem ClassificationProblemDateDocumented DateEpisodic/ChronicEsophageal disorders (12 sources)Gastroesophageal reflux disease without esophagitis; Translations: [Gastro-esophageal reflux disease without esophagitis]ChronicOsteoarthritis (20 sources)Primary gonarthrosis, bilateral; Translations: [Bilateral primary osteoarthritis of knee]Onset: 07-25-2021 Resolved: 73-91-0006JbfmscbJrszx bone disease and musculoskeletal deformities (6 sources)Chondromalacia; Translations: [Chondromalacia, right knee]Episodic Other circulatory disease (6 sources)Elevated blood-pressure reading without diagnosis of hypertension; Translations: [Elevated blood-pressure reading, without diagnosis of hypertension]EpisodicOther circulatory disease (1 source)Elevated blood-pressure reading, without diagnosis of hypertension EpisodicOther connective tissue disease (3 sources)Trochanteric bursitis; Translations: [Trochanteric bursitis, unspecified hip]17-93-3201LtjwucgtAbbmw connective tissue disease (1 source)Trochanteric bursitis, unspecified hip; Translations: [Enthesopathy of hip region]39-48-4222YobarymnHycmg nervous system disorders (6 sources)Carpal tunnel syndrome; Translations: [Carpal tunnel syndrome]Onset: 36-13-4185XnlitruCctlu non-traumatic joint disorders (4 sources)Pain in right knee; Translations: [Pain in both knees]Onset: 07-25-2021 Resolved: 47-01-7886PaqqdkpzXnmla non-traumatic joint disorders (2 sources)Pain in left knee; Translations: [PAIN IN LEFT KNEE]Onset: 07-25-2021 Resolved: 12-72-7104PhpukcnjVasfs non-traumatic joint disorders (20 sources)Arthralgia of the lower leg; Translations: [Pain in left knee]Onset: 66-89-2175SdaduvouQqbue nutritional; endocrine; and metabolic disorders (18 sources)Obesity; Translations: [Other obesity due to excess calories]Onset: 59-48-6034JtgcnkgLcqmf nutritional; endocrine; and metabolic disorders (15 sources)Body mass index 30+ - obesity; Translations: [Body mass index (BMI) 39.0-39.9, adult]26-99-9058RjtouefLmuuj nutritional; endocrine; and metabolic disorders (2 sources)Other obesity due to excess calories; Translations: [Obesity, unspecified]Onset: 07-25-2021 Resolved: 29-04-7795DletrefIfpbg nutritional; endocrine; and metabolic disorders (2 sources)Body mass index (BMI) 39.0-39.9, adult; Translations: [Body Mass Index 39.0-39.9, adult]Onset: 07-25-2021 Resolved: 41-38-4609CyydordCyfyn nutritional; endocrine; and metabolic disorders (6 sources)Body mass index 40+ - severely obese; Translations: [Body mass index (BMI) 40.0-44.9, adult]ChronicOther nutritional; endocrine; and metabolic disorders (3 sources)Obesity caused by energy imbalance; Translations: [Other obesity due to excess calories]17-02-9137RajcejcXeiip screening for suspected conditions (not mental disorders or infectious disease) (10 sources)Encounter for screening mammogram for malignant neoplasm of breast; Translations: [Mammography abnormal]Onset: 434307-01-0868KhgxyuxlKiwmk upper respiratory disease (6 sources)Allergic rhinitis; Translations: [Allergic rhinitis, unspecified] Onset: 48-25-0925NehjurbQljcl upper respiratory disease (1 source)Other diseases of vocal cordsEpisodicOther upper respiratory infections (6 sources)Chronic maxillary sinusitis; Translations: [Chronic maxillary sinusitis]Onset: 92-74-0456IvxsfjbJztznggh codes; unclassified (12 sources)Asymptomatic menopausal state; Translations: [Menopause]Onset: 76-84-8448InnomjrrFnxytvli codes; unclassified (1 source)Family history of malignant neoplasm of breast; Translations: [FAMILY HX MALIG NEOPLASM OF BREAST]Onset: 50-87-3675PiqqqxvyWvoymdav codes; unclassified (1 source)Family history of malignant neoplasm of ovary; Translations: [FAM HX MALIGNANT NEOPLASM OVARY]Onset: 70-11-2664WqemxyhiRgkdzhih codes; unclassified (1 source)Family history of malignant neoplasm of kidney; Translations: [FAM HX MALIGNANT NEOPLASM KIDNEY]Onset: 72-79-6865FmmgdjjsIztqkbxj codes; unclassified (11 sources)Family history of breast cancer; Translations: [Family history of malignant neoplasm of breast]EpisodicResidual codes; unclassified (6 sources)Flushing; Translations: [Flushing]EpisodicResidual codes; unclassified (6 sources)Postmenopausal state; Translations: [Asymptomatic menopausal state] EpisodicSpondylosis; intervertebral disc disorders; other back problems (6 sources)Low back pain; Translations: [Lumbago]EpisodicThyroid disorders (20 sources)Hypothyroidism, unspecified; Translations: [Hypothyroidism]Onset: 68-68-9329Wgchzgc Past or Other Problems Problem ClassificationProblemDateDocumented DateEpisodic/ChronicOther connective tissue disease (6 sources)Disorder of soft tissue; Translations: [Disorders of soft tissue, unspecified]Onset: 73-37-2431NgjxksujViebp non-traumatic joint disorders (1 source)Pain in right hip; Translations: [Pain in right hip]Onset: 10-15-2023 EpisodicOther upper respiratory infections (7 sources)Acute laryngitis; Translations: [Acute maxillary sinusitis]Onset: 30-59-9898DbpbnjtwUxlmlkxd codes; unclassified (6 sources)Edema; Translations: [Edema]Onset: 38-41-6233WfdijgegXvwobyuzqavj (1 source)Chronic cough R05.3 Results Test NameValueInterpretationReference RangeFacilityMM diagnostic mammo LT w/CAD on 54-63-1146KI diagnostic mammo LT w/CADPROMEDICA TOLEDO [place] [address] Ultrasound Report Signed Patient: Christina Alex MR#: [id number] 504 : 1965 Acct:[id number] Age/Sex: 59 / F ADM Date: 05/07/24 Loc: [place] Room: Type: [facility] Attending Dr: Rachele Eldridge MD Ordering Provider: Rachele Eldridge MD Date of Service: 05/07/24 MM/MM diagnostic mammo LT w/CAD: R92.8 ([id number]) US/US breast LT limited: 6MONTH F/UP Copies [...] grounds. Impression dictated by: Mau Hill Jr., D.OShmuel05/07/2024 9:34 AM Dictation Location: [facility] Tech: Evangelina Singh Transcribed By: MARY ANN 05/07/24 0934 Dictated By: Mau Hill Jr, DO 05/07/24 0928 Signed By: 05/07/24 0934[facility] Physician GroupXR hip RT min 2V(w/wo pelvis)*on 93-83-7328FU hip RT min 2V(w/wo pelvis)*[facility] [address] [place] [address] XRay Report Signed Patient: Christina Alex MR#: [id number] : 1965 Acct:[id number] Age/Sex: 58 / F ADM Date: 10/15/23 [place] [facility] Room: Type: [facility] Attending Dr: Jonas Colbert DO Copies to: [...] Enoch Sharp M.D.10/15/2023 1:49 PM Dictation Location: [place] [address] Transcribed By: [facility] 10/15/23 1349 Dictated By: Enoch Sharp DO 10/15/23 1349 Signed By: 10/15/23 1349[facility] HospitalXR knee BI 3V - NOT FOR ER USEon 49-81-4630FL knee BI 3V - NOT FOR ER USEPROMEDICA TOLEDO [facility]OSPITAL [facility] [address] [place] [address] XRay Report Signed Patient: Christina Alex MR#: [id number] : 1965 Acct:[id number] Age/Sex: 58 / F ADM Date: 10/15/23 Loc: [facility] Room: Type: [facility] Attending Dr: Jonas Colbert DO Copies to: [...] Enoch Sharp M.D.10/15/2023 1:54 PM Dictation Location: [facility] Transcribed By: MARY ANN 10/15/23 1354 Dictated By: Enoch Sharp DO 10/15/23 1349 Signed By: 10/15/23 1354[facility] Physician GroupBasophils Auto (Bld) [#/Vol]on 88-97-6741Cgkhlzszy (Bld) [#/Vol]0.0 10 3/uL0.0-0.1FGalion Community HospitalBasophils/100 WBC Auto (Bld)on 35-32-2788Gnkuyjcoe/100 WBC (Bld)0.4 % 0.2-2.0The [facility] HospitalCholesterol in LDL Calc [Mass/Vol]on 83-57-9572Hwxvyofmvop in LDL [Mass/Vol]105.0 mg/dLThe Jewish HospitalComment on above:<100 mg/dl DBWQJRA124-487 mg/dl NEAR OR ABOVE GIZTEWP162- 159 mg/dl BORDERLINE ICKC820-512 mg/dl HIGH>190 mg/dl VERY HIGHCholesterol in VLDL Calc [Mass/Vol]on 35-26-7268Cgnrzlcitgz in VLDL [Mass/Vol]26.0 mg/dL [facility] HospitalEosinophils/100 WBC Auto (Bld)on 09-18-2023 Eosinophils/100 WBC (Bld)1.4 %0.9-7.0[facility] Erythrocyte distribution width Auto (RBC) [Ratio]on 21-32-3821Suscwurbyka distribution width (RBC) [Ratio]13.7 %11.0-15.0[facility] Estimated glomerular filtration rate (GFR) non- Americanon 09-18-2023 GFR/1.73 sq M.predicted among non-blacks MDRD (S/P/Bld) [Vol rate/Area] mL/min/{1.73_m2}>=60The [facility] HospitalGlobulin Calc (S) [Mass/Vol]on 35-55-0285Nchdughr (S) [Mass/Vol]4.1 g/dLThe Jewish HospitalHematocrit Auto (Bld) [Volume fraction]on 97-76-5669Jkukfdmmfc (Bld) [Volume fraction]43.6 %36.0-48.0The [facility] HospitalHemoglobin [Mass/volume] in Bloodon 73-52-5602Risbyvqhko (Bld) [Mass/Vol]14.0 g/dL12.0-16.0 [facility] HospitalLaboratory - Chemistry and Chemistry - challengeon 00-99-6016Ywzrfpg [Mass/Vol]3.2 g/dLLow3.4-5.0The [facility] HospitalALP [Catalytic activity/Vol]98 U/P54-915HyfdqmudzThe Jewish HospitalALT [Catalytic activity/Vol]21 U/K49-70WbsiavlnmThe [facility] Hospital AST [Catalytic activity/Vol]14 U/PObq80-51BtyufcltyThe [facility] Hospital Bilirubin [Mass/Vol]0.6 mg/dL0.2-1.0[facility] HospitalCalcium [Mass/Vol]9.1 mg/dL8.5-10.1FGalion Community HospitalChloride [Moles/Vol] 105 mmol/V45-705CyipalztpThe Jewish HospitalCholesterol [Mass/Vol]180 mg/dL <=200The [facility] HospitalCholesterol in HDL [Mass/Vol]49 mg/dL40-60 The [facility] HospitalComment on above:> or =60 mg/dl - LOW CARDIOVASCULAR RISK<40 mg/dl - HIGH CARDIOVASCULAR RISKCO2 [Moles/Vol]25.9 mmol/L21.0-32.0The [facility] HospitalCreatinine [Mass/Vol]0.80 mg/dL 0.55-1.02The [facility] HospitalFree T4 [Mass/Vol]1.01 ng/dL0.76-1.46 [facility] HospitalGFR/1.73 sq M.predicted MDRD (S/P/Bld) [Vol rate/Area]mL/min/{1.73_m2}>=60The [facility] HospitalGlucose [Mass/Vol]98 mg/kZ94-737Ombuedrka Regional Medical CenterPotassium [Moles/Vol] 4.1 mmol/L3.5-5.1FGalion Community HospitalProtein [Mass/Vol]7.3 g/dL 6.4-8.2FCleveland Clinic Children's Hospital for Rehabilitationodium [Moles/Vol]141 mmol/P814-678 The [facility] HospitalTriglyceride [Mass/Vol]130 mg/dL<=150The [facility] HospitalTSH Qn3.034 m[IU]/L0.358-3.740The [facility] HospitalUrea nitrogen [Mass/Vol]13.0 mg/dL7.0-18.0The [facility] HospitalUrea nitrogen/Creatinine [Mass ratio]16.2 mg/mgThe Jewish HospitalLaboratory - Hematology and Cell countson 60-03-9765Rcgefrjp granulocytes/100 WBC (Bld)0.6 %High0.0-0.5FGalion Community Hospital Leukocytes [#/volume] corrected for nucleated erythrocytes in Blood by Automated counon 16-59-1611QGU corrected for nucl RBC Auto (Bld) [#/Vol]10.1 10 3/uL 4.0-11.0The [facility] HospitalLymphocytes Auto (Bld) [#/Vol]on 36-58-2717Tnmdkrluteb (Bld) [#/Vol]2.1 10 3/uL1.2-3.8The [facility] HospitalLymphocytes/100 WBC Auto (Bld)on 69-57-4750Bkxjeawzadx/100 WBC (Bld)20.4 % Low20.5-60.0[facility] HealthH Auto (RBC) [Entitic mass]on 61-55-1951HGZ (RBC) [Entitic mass]29.1 pg26.7-34.0The [facility] HospitalMCHC Auto (RBC) [Mass/Vol]on 32-16-4239EWQL (RBC) [Mass/Vol]32.1 g/dL 29.9-35.2FGalion Community HospitalMCV Auto (RBC) [Entitic vol]on 76-57-4916YUJ (RBC) [Entitic vol]90.6 fL81.0-99.0The [facility] HospitalMonocytes Auto (Bld) [#/Vol]on 65-50-7741Rusnpmqsj (Bld) [#/Vol]0.6 10 3/uL0.3-0.8The [facility] HospitalMonocytes/100 WBC Auto (Bld)on 92-61-0241Nhyunjlgl/100 WBC (Bld)5.9 %1.7-12.0[facility] Neutrophils Auto (Bld) [#/Vol]on 98-49-9350Ttubavpgpuc (Bld) [#/Vol]7.2 10 3/uL High1.4-6.5FGalion Community HospitalNeutrophils/100 WBC Auto (Bld)on 44-59-8224Cztripimdck/100 WBC (Bld)71.3 %43.0-75.0The [facility] HospitalNo Panel Informationon 55-77-8445Cavylvrrjtt # (Auto)0.1 10 3/uL0.0-0.7 The [facility] HospitalImmature Granulocyte # (Auto)0.06 10 3/uLHigh 0.00-0.03The [facility] HospitalPlatelet mean volume Auto (Bld) [Entitic vol]on 72-47-6608Ljeigleu mean volume (Bld) [Entitic vol]10.6 fL 9.5-13.5FGalion Community HospitalPlatelets Auto (Bld) [#/Vol]on 86-89-2317Gstjhninu (Bld) [#/Vol]257 10 3/cZ340-364AvtgffbxkThe Jewish HospitalRBC Auto (Bld) [#/Vol]on 93-65-1911YFH (Bld) [#/Vol]4.81 10 6/uL4.20-5.40 [facility] Medical Centererum or plasma albumin/globulin mass ratioon 89-69-6938Pxbqjpr/Globulin [Mass ratio]0.8 {ratio}[facility] Medical Centererum or plasma anion gap determinationon 53-84-8894Gzisv gap [Moles/Vol] 14.2 mmol/LFCleveland Clinic Children's Hospital for Rehabilitationerum or plasma total cholesterol/high density lipoprotein (HDL) cholesterol mass elvis 09-18-2023 Cholesterol.total/Cholesterol in HDL [Mass ratio]3.7 {ratio}The Jewish HospitalComment on above:3.3 - 4.4 LOW RISK4.4 - 7.1 AVERAGE RISK7.1 - 11.0 MODERATE RISK>11.0 HIGH RISKCBC AUTO DIFFon 27-34-3176GTCZ #0.0 103/ul Normal0.0-0.1[facility]. Mary HospitalComment on above:Performed By: #### CBC #### [facility] [address] [place] [address] Dr. Irene RodriguezBasophils/100 WBC (Bld)0.3 %Normal0.2-2.0[facility] Comment on above:Performed By: #### CBC #### [facility] [address] [place] [address] Dr. Irene Leavitt #0.1 103/ulNormal0.0-0.7The [facility]beighComment on above: Performed By: #### CBC #### [facility] [address] [place] [address] Dr. Irene Gardinerosinophils/100 WBC (Bld)1.1 %Normal0.9-7.0[facility] Comment on above:Performed By: #### CBC #### [facility] [address] [place] [address] Dr. Irene Gardinerrythrocyte distribution width (RBC) [Ratio]13.9 %Tffcgw76.0-15.[address] [facility] HospitalComment on above:Performed By: #### CBC #### [facility] [address] [place] [address] Dr. Irene RodriguezHematocrit (Bld) [Volume fraction]46.8 %Liuxuf84.0-48.0[facility] Mary HospitalComment on above:Performed By: #### CBC #### [facility] [address] [place] [address] Dr. Irene RodriguezHemoglobin (Bld) [Mass/Vol]15.1 g/zMOtcpqx56.0-16.0The [facility]ighComment on above:Performed By: #### CBC #### [facility] [address] [place] [address] [address] Irene Keith #0.17 10e3/ulCritically high0.00-0.03The [facility] Comment on above:Performed By: #### CBC #### [facility] [address] [place] [address] Dr. Irene Keith %1.3 %Critically high0.0-0.5The [facility] GlenbeighComment on above:Performed By: #### CBC #### [facility] [address] [place] [address] [address] Irene Rm #2.3 103/ulNormal1.2-3.8The [facility] GlenbeighComment on above:Performed By: #### CBC #### [facility] [address] [place] [address] Dr. Irene Amayahocytes/100 WBC (Bld)17.6 %Critically low20.5-60.0The [facility] GlenbeighComment on above:Performed By: #### CBC #### [facility] [address] [place] [address] Dr. Irene RogersUAL DIFF REQNONormalThe [facility]ighComment on above: Performed By: #### CBC #### [facility] [address] [place] [address] Dr. Irene Cunha (RBC) [Entitic mass]28.7 akOnhpgn46.7-34.0The [facility] GlenbeighComment on above:Performed By: #### CBC #### [facility] [address] [place] [address] Dr. Irene Cunha (RBC) [Mass/Vol]32.3 g/iYRosuiz67.9-35.2The [facility]ighComment on above:Performed By: #### CBC #### [facility] [address] [place] [address] Dr. Irene Cunha (RBC) [Entitic vol]89.0 sQOjpima61.0-99.0The [facility] GlenbeighComment on above:Performed By: #### CBC #### [facility] [address] [place] [address] [address] Irene Swenson #0.6 103/ulNormal0.3-0.8The [facility] GlenbeighComment on above:Performed By: #### CBC #### [facility] [address] [place] [address] Dr. Irene Fontanaocytes/100 WBC (Bld)4.5 %Normal1.7-12.0[facility] Comment on above:Performed By: #### CBC #### [facility] [address] [place] [address] Dr. Irene Good #9.9 103/ulCritically high1.4-6.5The [facility] Comment on above:Performed By: #### CBC #### [facility] [address] [place] [address] Dr. Irene Verautrophils/100 WBC (Bld)75.2 %Critically high43.0-75.0The [facility] GlenbeighComment on above:Performed By: #### CBC #### [facility] [address] [place] [address] Dr. Irene Tselet mean volume (Bld) [Entitic vol]10.5 fLNormal9.5-13.5The [facility]beighComment on above:Performed By: #### CBC #### [facility] [address] [place] [address] Dr. Irene RodriguezPLT282 103/wuPponpz709-733Ajw [facility]ighComment on above: Performed By: #### CBC #### [facility] [address] [place] [address] Dr. Irene RodriguezRBC5.26 106/ulNormal4.20-5.40The [facility]beighComment on above:Performed By: #### CBC #### [facility] [address] [place] [address] Dr. Irene RodriguezWBC13.2 103/ulCritically high4.0-11.0The [facility] GlenbeighComment on above:Performed By: #### CBC #### [facility] [address] [place] [address] [address] Irene Diez T4on 34-22-7187Hika T4 [Mass/Vol]1.09 ng/dLNormal0.76-1.46 The [facility]ighComment on above:Performed By: #### FT4 #### [facility] [address] [place] [address] [address] Irene Blanco PROFILEon 58-81-3877SRQU-HDL RATIO NORMSEE BELOWNoMcKitrick HospitalComment on above:Result Comment: 3.3 - 4.4 LOW RISK 4.4 - 7.1 AVERAGE RISK 7.1 - 11.0 MODERATE RISK >11.0 HIGH RISKPerformed By: #### LIPID, TSH, CMP #### [facility] [address] [place] [address] Dr. Irene Regaladoesterol [Mass/Vol]179 mg/dLNormal<=200The [facility] Comment on above:Performed By: #### LIPID, TSH, CMP #### [facility] [address] [place] [address] [address] Irene Regaladoesterol in HDL [Mass/Vol]48 mg/uPFqgdnw39-92VulMount St. Mary HospitalComment on above:Performed By: #### LIPID, TSH, CMP #### [facility] [address] [place] [address] [address] Irene Regaladoesterol in LDL [Mass/Vol]109.2 mg/dLCommunity Memorial HospitalComment on above:Performed By: #### LIPID, TSH, CMP #### [facility] [address] [place] [address] Dr. Irene Montes.total/Cholesterol in HDL [Mass ratio]3.7 {ratio} NormalMount St. Mary HospitalComment on above:Performed By: #### LIPID, TSH, CMP #### [facility] [address] [place] [address] Dr. Irene RodriguezHDMadonna NORMAL> or = 60 mg/dl - LOW CARDIOVASCULAR RISK <40 mg/dl - HIGH CARDIOVASCULAR RISKNoMcKitrick HospitalComment on above:Performed By: #### LIPID, TSH, CMP #### [facility] [address] [place] [address] [address] Irene RodriguezLDL CALC NORMALSEE BELOWCommunity Memorial HospitalComment on above:Result Comment: <100 mg/dl OPTIMAL 100 - 129 mg/dl NEAR OR ABOVE OPTIMAL 130 - 159 mg/dl BORDERLINE HIGH 160 - 189 mg/dl HIGH >190 mg/dl VERY HIGH Performed By: #### LIPID, TSH, CMP #### [facility] [address] [address] [address] Irene RodriguezTriglyceride [Mass/Vol]109 mg/dLNormal<=150[facility] Comment on above:Performed By: #### LIPID, TSH, CMP #### [facility] [address] [address] [address] Irene RodriguezVLDL CALC21.8 mg/dLCommunity Memorial HospitalComment on above: Performed By: #### LIPID, TSH, CMP #### [facility] [address] [address] [address] Irene RodriguezMG MAMM SCREEN 3D JAN CADon 57-95-4192CI MAMM SCREEN 3D JAN CAD Patient: CHRISTINA ALEX Exam Date: 08/01/2021 : 1965 Gender:F Ordering : DR RACHELE ELDRIDGE M.D. Admission #: [id number] Family : Order #: [id number] CLICK HERE TO VIEW EXAM RADIOLOGY REPORT [...] kidney cancer at age 46. LOCATION: [facility] BREAST COMPOSITION: Scattered areas fibroglandular density. FINDINGS: [...] by: Javed Albarado MD on 08/01/2021 at 10:17Community Memorial HospitalPROF 14(COMP METB)on 35-00-0541Dpexbtn [Mass/Vol]3.1 g/dLCritically low3.4-5.0The [facility]ighComment on above:Performed By: #### LIPID, TSH, CMP #### [facility] [address] [place] [address] Dr. Irene RodriguezAlbumin/Globulin [Mass ratio]0.8 {ratio}NormalThe [facility]ighComment on above:Performed By: #### LIPID, TSH, CMP #### [facility] [address] [place] [address] Dr. Irene Jack [Catalytic activity/Vol]92 U/ZKpgiee44-348Byl [facility]ighComment on above:Performed By: #### LIPID, TSH, CMP #### [facility] [address] [address] [address] Irene Rodriguez [Catalytic activity/Vol]22 U/YJdfjvp04-32Soe [facility]ighComment on above:Performed By: #### LIPID, TSH, CMP #### [facility] [address] [address] [address] Irene Waller gap [Moles/Vol]10.3 mmol/LNormalThe [facility] Comment on above:Performed By: #### LIPID, TSH, CMP #### [facility] [address] [place] [address] Dr. Irene Luther [Catalytic activity/Vol]9 U/LCritically daq06-34Huv [facility]ighComment on above:Performed By: #### LIPID, TSH, CMP #### [facility] [address] [address] [address] Irene RodriguezBilirubin [Mass/Vol]0.6 mg/dLNormal0.2-1.0The [facility] Comment on above:Performed By: #### LIPID, TSH, CMP #### [facility] [address] [address] [address] Irene RodriguezCalcium [Mass/Vol]8.7 mg/dLNormal8.5-10.1The [facility] Comment on above:Performed By: #### LIPID, TSH, CMP #### [facility] [address] [place] [address] Dr. Irene RodriguezChloride [Moles/Vol]106 mmol/JNvxroy29-128Mos [facility] Comment on above:Performed By: #### LIPID, TSH, CMP #### [facility] [address] [place] [address] Dr. Irene RodriguezCO2 [Moles/Vol]26.7 mmol/KOfxkhz28.0-32.0The [facility] Comment on above:Performed By: #### LIPID, TSH, CMP #### [facility] [address] [place] [address] Dr. Irene RodriguezCreatinine [Mass/Vol]0.84 mg/dLNormal0.55-1.02The [facility]ighComment on above:Performed By: #### LIPID, TSH, CMP #### [facility] [address] [place] [address] Dr. Irene GardinerGFR-AF NORTHERN IRISH>60Normal>=60The [facility]ighComment on above:Performed By: #### LIPID, TSH, CMP #### [facility] [address] [place] [address] Dr. Irene GardinerGFR-NON AF NORTHERN IRISH>60Normal>=60The [facility]ighComment on above:Performed By: #### LIPID, TSH, CMP #### [facility] [address] [place] [address] Dr. Irene RodriguezGlobulin (S) [Mass/Vol]4.1 g/dLNormalThMercy Health St. Elizabeth Boardman HospitalComment on above:Performed By: #### LIPID, TSH, CMP #### [facility] [address] [place] [address] Dr. Irene RodriguezGlucose [Mass/Vol]96 mg/hWFjkusb29-872VpfMount St. [facility] Comment on above:Performed By: #### LIPID, TSH, CMP #### [facility] [address] [address] [address] Irene RodriguezPotassium [Moles/Vol]4.0 mmol/LNormal3.5-5.1The [facility] Comment on above:Performed By: #### LIPID, TSH, CMP #### [facility] [address] [place] [address] Dr. Irene RodriguezProtein [Mass/Vol]7.2 g/dLNormal6.4-8.2[facility] Comment on above:Performed By: #### LIPID, TSH, CMP #### [facility] [address] [place] [address] Dr. Irene RodriguezSodium [Moles/Vol]139 mmol/JDjctgg179-819UquMount St. [facility] Comment on above:Performed By: #### LIPID, TSH, CMP #### [facility] [address] [place] [address] Dr. Irene RodriguezUrea nitrogen [Mass/Vol]17.0 mg/dLNormal7.0-18.0[facility]. Mary HospitalComment on above:Performed By: #### LIPID, TSH, CMP #### [facility] [address] [place] [address] Dr. Irene RodriguezUrea nitrogen/Creatinine [Mass ratio]20.2 mg/mgNoMcKitrick HospitalComment on above:Performed By: #### LIPID, TSH, CMP #### [facility] [address] [place] [address] Dr. Irene Aranda 19-22-3986VRC9.517 uIU/mLNormal0.358-3.740[facility]. Mary HospitalComment on above:Performed By: #### LIPID, TSH, CMP #### [facility] [address] [place], [place] [address] Dr. Irene Gonzales [facility]row County HospitalComment on above: Result Comment: <0.34 UIU/ml HYPERTHYROID 0.34-5.60 UIU/ml EUTHYROID >5.60 UIU/ml HYPOTHYROIDPerformed By: #### LIPID, TSH, CMP #### [facility] [address] [place], [place] [address] Dr. Irene RodriguezXR DEXA BONE DENSITYon 47-61-3796NZ DEXA BONE DENSITYEXAMINATION: XR DEXA BONE DENSITY, 08/01/2021 7:55 AM [...] Electronically authenticated by: JAVED ALBARADO Date: 2021-08-01 16:[address] [place], [place] [address]XR knee BI 3Von 20-40-6984OI knee BI 3V[facility] [employer] Other XR knee BI 3V[facility] [employer] Other XR knee BI [id number] [place] [address] [employer] Other XR knee BI [address]VSDav[address] [place] [id number] [employer] Other XR knee BI 3[facility] [employer] Other xr knee BI 3VSBates [facility] Memorial [facility] Other XR knee BI 3VPatient: Christina Alex MR#: [id number] [facility] [employer] Other XR knee BI [id number] Other xr knee BI 3VDOB: 1965 Acct:[id number] [employer] Other xr knee BI 3VAge/Sex: 56 / F ADM Date: 07/25/21[employer] Other XR knee BI 3VLoc: SOXD Room: Type: [facility] [employer] Other XR knee BI 3VAttending Dr: Jonas [place] [facility] SystemRichmedia Other XR knee BI 3VOrdering Provider: Jonas [place], [employer] Other XR knee BI 3VDate of Service: 07/25/21B[employer] Other XR knee BI 3VAccession #: ([id number] XR/XR knee BI 3V - NOT FOR ER USE: [facility] CenterB[facility] Other XR knee BI 3VCopies to: Jonas [place], Mover Other XR knee BI 3VBILATERAL KNEES - 3 views eachWarrenton my[employer] Other xr knee BI 3VCLINICAL HISTORY: Bilateral knee pain for 2 weeks.[employer] Other XR knee BI 3VCOMPARISON: None.[employer] Other xr knee BI 3VFINDINGS: Right knee: No significant joint effusion. No acute bony process. Moderate degenerativeBapul Other XR knee BI 3Vchanges with medial weightbearing joint space narrowing.[employer] Other XR knee BI 3VLeft knee: No significant knee joint effusion. No acute bony process. Moderate degenerative changesBapul Other XR knee BI 3Vwith medial weightbearing joint space narrowing.[employer] Other XR knee BI 3VORDER #: [id number] XR/XR knee BI 3V - NOT FOR ER USEWarrenton [employer] Other xr knee BI 3VIMPRESSION:[employer] Other xr knee BI 3VMODERATE DEGENERATIVE CHANGES OF BOTH KNEES WITHOUT ACUTE BONY PROCESS.[employer] Other XR knee BI 3VImpression dictated by: Mau [place] Jr., D.OShmuel07/25/2021 9:58 [facility] [employer] Other xr knee BI 3VDictation Location: [address] [employer] Other xr knee BI 3VTranscribed By: [facility] 07/25/[address] [place] [address] [employer] Other xr knee BI 3VDictated By: Mau Hill Jr, 07/25/[address] [place] [address] [employer] Other xr knee BI 3VSigned By:[employer] Other xr knee BI 3V07/25/21 [facility] CenterB[facility] Other Vital Signs Date TimeVital SignValuePerforming SkkjsgnovZwqlazau13-45-9193 11:38-0400Body xibptm084.18 cmRachele Eldridge MD Work Phone: [facility]10-31-2025 11:38-0400 Body mass index (BMI) [Ratio]42.9 kg/n6IfnejwRachele Eldridge MD Work Phone: [facility]10-31-2025 11:38-0400 Body .28 kgRachele Eldridge MD Work Phone: [facility]10-31-2025 11:38-0400 Diastolic blood sovvlzjy61 mm[Hg]Rachele Eldridge MD Work Phone: [facility]10-31-2025 11:38-0400 Heart rate84 /minRachele Eldridge MD Work Phone: [facility]10-31-2025 11:38-0400 Systolic blood nmqttfzi337 mm[Hg]Rachele Eldridge MD Work Phone: [phone])[address]08-21-2024 08:51-0400 Body terwdm640.18 cmMD Rachele Eldridge Work Phone: [phone]08-21-2024 08:51-0400 Body mass index (BMI) [Ratio]42.3 kg/m2MD Rachele Eldridge Work Phone: [phone]08-21-2024 08:51-0400 Body cmqcvi496.46 kgMD Rachele Eldridge Work Phone: [phone])[address]08-01-2024 14:14-0400 Body supdtl501.91 cmMD Rachele Eldridge Work Phone: [phone]08-01-2024 14:14-0400 Body mass index (BMI) [Ratio]45.8 kg/m2MD Rachele Eldridge Work Phone: [phone]08-01-2024 14:14-0400 Body rhkaaj522.63 kgMD Rachele Eldridge Work Phone: [phone]08-01-2024 14:14-0400 Diastolic blood proyvymn40 mm[Hg]MD Rachele Eldridge Work Phone: [phone]08-01-2024 14:14-0400 Heart rate83 /minMD Rachele Eldridge Work Phone: [phone]08-01-2024 14:14-0400 Systolic blood nlfeuyhr921 mm[Hg]MD Rachele Eldridge Work Phone: [phone] [place], [place] [address]12-01-2023 11:30-0500 Body cmxubb799.91 cmRachele Eldridge Other [place] [employer] Other [id number] 11:30-0500Body mass index (BMI) [Ratio] 44.13 kg/p0Knfbuu Jazmyn Other [employer] Other 12-01-2023 11:30-0500Body ckihxu058.92 kgRachele Eldridge Other [employer] Other 12-01-2023 11:30-0500Diastolic blood kdohzyia59 mm[Hg] Rachele Eldridge Other [employer] Other 12-01-2023 11:30-4115HrU6% (BldA) [Mass fraction]97 % Rachele Eldridge Other [employer] Other 12-01-2023 11:30-0500Systolic blood hbeozegu316 mm[Hg] Rachele Eldridge Other [employer] Other 02-20-2023 08:30-0500Body .91 cmRachele Jazmyn Other [employer] Other 02-20-2023 08:30-0500Body mass index (BMI) [Ratio] 42.44 kg/d1Bginon Jazmyn Other [employer] Other 02-20-2023 08:30-0500Body ocxibr950.11 kgRachele Jazmyn Other [employer] Other 02-20-2023 08:30-0500Diastolic blood ulddpfoa35 mm[Hg] Rachele Eldridge Other [employer] Other 02-20-2023 08:30-2730PrS4% (BldA) [Mass fraction]97 % Rachele Eldridge Other [employer] Other 02-20-2023 08:30-0500Systolic blood czooivmn361 mm[Hg] Rachele Eldridge Other [facility] [employer] Other 06-01-2022 09:30-0400Body uayymo025.18 cmJustpiyush [place] Other [employer] Other 06-01-2022 09:30-0400Body mass index (BMI) [Ratio] 39.15 kg/p6Ttukfgpiyush [place] Other [employer] Other 06-01-2022 09:30-0400Body iifkro044.4 kgJustpiyush [place] Other [facility] [employer] Other Encounters Encounter DateEncounter TypeCare ProviderFacilityStart: 12-24-2024 End: 02-01-0643qwptzqjwlaDhqlfn E Braun MD Work Phone: -[facility] 12-24-2024 End: 36-10-7057Vtsgofc encounter procedureRachele Eldridge MD-[facility] Work Phone: Start: 12-24-2024 End: 27-05-9860Mwvlaoi encounter statusRachele Eldridge MDAdena [facility]ayette Medical Centertart: 05-07-2024 End: 04-28-0442Phydfxj encounter Marixa Eldridge MD Work Phone: [facility] Work Phone: Start: 05-07-2024 End: 24-42-5354kcgfklsbvuJagkaa E Braun MD Work Phone: [facility] Work Phone: Start: 10-15-2023 End: 62-42-6832aklmkzkidnOA Rachele Eldridge Work Phone: [facility] Work Phone: Start: 10-15-2023 End: 00-57-3218Yfizvyf encounter procedureMD Rachele Eldridge Work Phone: [facility] Work Phone: Start: 09-25-2023 End: 03-87-1746Dhenqhbhu for general adult medical examination without abnormal findingsMD Rachele Eldridge Work Phone: [facility]: 09-25-2023 End: 35-93-3065Siatgrp encounter procedureMD Rachele Eldridge Work Phone: [facility] Work Phone: Start: 15-22-2257Kdc-patient / Non-visitMD Rachele Eldridge Work Phone: [facility] Work Phone: Start: 61-07-9062Tzbssbc encounter statusMD Rachele Eldridge Work Phone: [facility]: 02-20-2023 End: 38-63-9909flwudeboxuVmzqse Braun Other noBapul Other Start: 17-44-6958Wxiivtykg encounterMarcia Kanakanak Hospitaltart: 02-12-2023 End: 41-83-8962ajayacivpgUtxnqp Jazmyn Other [employer] my[employer] Other Start: 35-61-2313Rvzqahxpi encounterMarcia Kanakanak Hospitaltart: 02-11-2023 End: 68-22-9141kezfhpdrdzGdmnbi Jazmyn Other noBapul Other Start: 45-00-1733Tybbrwpzp encounterMarcia Kanakan[facility] Hospitaltart: 02-03-2023 End: 53-68-6365twqmoprflbYjwwkn Jazmyn Other noBapul Other start: 70-18-4023Jchknoohq encounterMarcia [facility] ClinicStart: 01-24-2023 End: 62-02-4894fviwibwazkYwpnqb Eldridge Other noBapul Other Start: 03-16-2692Ihxraqvob by computer linkRachele Gay Medical ClinicStart: 80-55-7715Vhxdpm outpatient visit 15 minutes [facility] ClinicStart: 05-27-2022 End: 53-32-2912zcmezqimdzER Rachele Eldridge Work Phone: [facility] Work Phone: Start: 05-27-2022 End: 47-03-7109Bzzfrwqzss RecurringMD Rachele Eldridge Work Phone: [facility]-[employer] [facility]: 05-23-2022 End: 49-15-6469pwglkzsuseTcgqxl Jazmyn Other [employer] Other Start: 45-13-3665Cpvkmpwtk encounterMarcia [facility] ClinicStart: 05-21-2022 End: 98-29-7317bnmcrjscmpWlwrvf Eldridge Other [employer] Other Start: 19-78-0903Fghqruwxd encounterMarcia [facility] ClinicStart: 04-17-2022 End: 72-44-8027lowjursenoDzkakx Eldridge Other noBapul Other Start: 63-31-8339Xjiakljgv encounterMarcia [facility] Medical ClinicStart: 04-15-2022 End: 57-81-9775pyuuvaiiuwBrbpov Eldridge Other noB[employer] Other Start: 03-60-8041Mqxmdu outpatient visit 15 minutes [facility] ClinicStart: 03-18-2022(Televisit) TelevisitMarzhen JazmynFairfield Medical Center ClinicStart: 03-18-2022 End: 35-25-9968lipccvasvcPilrrb Braun Other [employer] Other Start: 75-03-1791Qcacdmigj for general adult medical examination without abnormal findingsDR RACHELE Bolaños [facility] Start: 08-01-2021 End: 56-97-1764oshafhtxwsYNJBFX KELLEYFacility:Y2Jitro: 08-01-2021 End: 61-60-2294etewuuqdwrOZ Javed Albaradocility:T9Dijcu: 08-01-2021 End: 07-57-3738Vybcqxxhl for general adult medical examination without abnormal findingsDR Javed AlbaradoFacility:W7Qmhvp: 67-44-4816Dljzn health examinationMarzhen Eldridge Other [facility] [employer] Other Start: 66-92-3808Adimdeodebucd examination normal Rachele Eldridge Other [employer] Other Start: 07-25-2021 End: 29-64-1821crdlayffivVpezdk Kelley Other [facility] [employer] Other Start: 15-28-0776Rintgk outpatient new 45 minutes [facility] Procedures DateProcedureProcedure DetailPerforming ClinicianStart: 93-28-6013Vrgovupqznv of left breastRachele Eldridge MD Work Phone: Start: 68-18-4735Voytxinuhnxhqrg of left breastRachele Eldridge MD Work Phone: Start: 85-66-3492Pwjrk X-ray of right hipMD Rachele Eldridge Work Phone: Start: 84-69-8015Y-ray of both kneesMD Rachele Eldridge Work Phone: Screening for malignant neoplasm of breastYvettecia Jazmyn Other Screening for malignant neoplasm of colonMarcia Jazmyn Other Plan of Treatment DateCare ActivityDetailAuthorComprehensive metabolic 2000 panel - Serum or PlasmaThe [facility] HospitalMG Breast - bilateral ScreeningP[facility] Immunizations Immunization DateImmunizationNotesCare FgjwlncnXzefuxua18-87-9246hxhztfpou virus vaccine, split virus (incl. purified surface antigen)Rachele Jazmyn Other [employer] Other [id number] virus vaccine, unspecified formulationMD Rachele Eldridge Work Phone: [facility]10-24-2017tetanus and diphtheria toxoids, adsorbed, preservative free, for adult use (5 Lf of tetanus toxoid and 2 Lf of diphtheria toxoid)Rachele Eldridge Other [facility]05-15-2017diphtheria, tetanus toxoids and acellular pertussis vaccine, unspecified formulationRachele Eldridge Other [facility]10-17-2016influenza virus vaccine, split virus (incl. purified surface antigen)Rachele Jazmyn Other [employer] Other 479528-35-9095bfilazfmp virus vaccine, unspecified formulationMD Rachele Eldridge Work Phone: [facility]11-29-2015influenza virus vaccine, split virus (incl. purified surface antigen)Rachele Eldridge Other [employer] Other 11721912-32-3117mvtrngnhr virus vaccine, unspecified formulationMD Rachele Eldridge Work Phone: [facility] Payers DatePayer CategoryPayerPolicy [id number] Social History DateTypeDetailFacilitySex Assigned At [facility] Other Start: 54-93-6933Lzg Assigned At [facility] HospitalTobacco smoking status NHISUnknown if ever smoked [facility] Work Phone: Start: 18-07-5304CxfEoeqlt (finding)[facility] Centertart: 52-86-2013Zsxedyq smoking status NHISNever smoked tobacco (finding)[facility] Clinical Notes 07-25-2021 to 05-07-2024 Note Date & YwodUlalXfvgbdwi58-44-0084 Radiology Diagnostic study notePROMEDICA [facility] [place] [address] Ultrasound Report Signed Patient: Christina Alex MR#: [id number] : 1965 Acct:[id number] Age/Sex: 59 / F ADM Date: 5 Loc: [place] Room: Type: [facility] Attending Dr: Rachele Eldridge MD Ordering Provider: Rachele Eldridge MD Date of Service: 05/07/24 MM/MM diagnostic mammo LT w/CAD: R92.8 ([id number]) US/US breast LT limited: 6MONTH F/UP Copies [...] grounds. Impression dictated by: Mau [place] Jr., DShmuelOShmuel05/07/2024 9:34 AM Dictation Location: [facility] Tech: Evangelina Singh Transcribed By: MARY ANN 05/07/2434 Dictated By: Mau [place] Jr, DO 05/07/24 0928 Signed By: 05/07/24 0934 [facility]12-19-2023 Evaluation note* Encounter Date Diagnosis Assessment Notes Treatment Notes Treatment Clinical Notes Jan, Hypothyroidism, unspecified type (ICD-10 - E03.9) [employer] Other [id number] Evaluation note* Encounter Date Diagnosis Assessment Notes Treatment Notes Treatment Clinical Notes Jan, Chronic cough (ICD-10 - R05.3) Discussed cough and hoarseness related to cold weather. WIll trial inhaler prior to exposure to cold weather. Jan,Elevated blood pressure reading (ICD-10 - R03.0)Will monitor bp through next week and call w an update. Discussed multiple stressors in life right now that are likely contributing to her elevated bp reading. [employer] Other 02-20-2023 Evaluation note* Encounter Date Diagnosis Assessment Notes Treatment Notes Treatment Clinical Notes Mar, Gastroesophageal ref lux disease without esophagitis (ICD-10 - K21.9) Add med. 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 [employer] Other 01-23-2023 Evaluation note* Encounter Date Diagnosis Assessment Notes Treatment Notes Treatment Clinical Notes Feb, Laryngitis (ICD-10 - J04.0) 3 weeks of acute laryngitis. Patient requests referral to Dr. Sheth if her symptoms do not improve. [employer] Other 06-01-2022 Evaluation note* Encounter Date Diagnosis Assessment Notes Treatment Notes Treatment Clinical Notes Jul, Pain in right knee (ICD-10 - M25 .561) Jul,rimary osteoarthritis of both knees (ICD-10 - M17.0)Christina presents with bilateral knee DJD. At this juncture we have discussed the findings and diagnosis as well as personally reviewed appropriate imaging and performed interpretation of related testingand examination with the patient in office today. [...] tolerated the injection well without adverse reaction. [place] diallo given [employer] information handout. Prescription for meloxicam sent into patients pharmacy Jul,ain in left knee (ICD-10 - M25.562) Jul,ther obesity due to excess calories (ICD-10 - E66.09) Jul,ody mass index [BMI] 39.0-39.9, adult (ICD-10 - Z68.39)Today we discussed obesity. We discussed the range of BMI and the patient's BMI of 39. We discussedweight loss strategies through increased physical activity as well as decrease caloric intake. We offered referral for bariatric services. Our discussion is limited to 5 minutes. Jul,therSee orders for this visit as documented in the electronic medical record. [facility] [employer] Other Evaluation noteNo InformationNortDepartment of Veterans Affairs Medical Center-[facility] [employer] Other Evaluation noteNo assessment information available [facility] Work Phone: Evaluation note* Diagnosis Onset Date Resolution Status Abnormal mammogram acuteHypothyroidacuteOsteoarthritis of knees, bilateralacuteWellness examination acuteBody mass index [BMI] 39.0-39.9, adultacuteGreater trochanteric bursitis acuteOsteoarthritis of knees, bilateralacuteOther obesity due to excess calories acute [facility] Work Phone: Evaluation note* Diagnosis Onset Date Resolution Status Admit Date Colon cancer screening acuteOctober 2024 11:15amHypothyroidacuteOctober 2024 11:15am Screening mammogram for breast canceracuteOctober 2024 11:15amWellness examinationacuteOctober 2024 11:15am [facility] Work Phone: History general Narrative - Reported* Type Description Date Medical History Hypothyroidism Surgical Historyarthroscopic knee surgery hffgi9729Uauarsnt Historycarpal tunnel release kfcshtovz5323Nccudbup Nrlmbmcblfiyudlrrwy3418Fhjmmmle Historyplantar dzthpoosaz9916Vvwsbfux Historytonsillectomy and dthhprvqpwpok7207Fqrmtils Historyc-section x2 [employer] Other History general Narrative - Reported* Type Description Date Medical History Arthritis of both knees Medical HistoryObesity due to excess caloriesMedical HistoryAdult body mass index 39.0-39.9Medical HistoryFamily history of malignant neoplasm of breast Medical HistoryAcute pain of left kneeMedical HistoryHypothyroidismMedical HistoryMenopauseMedical HistorySpasmatic dysphoniaSurgical Historyarthroscopic knee surgery vvmit4012Jxtfnzjc Historycarpal tunnel release bmerqnews2501 Surgical Zhffllzznewwcuvyudi2188Oyczgike Historyplantar pwqbqzrnkv8210Vjopiltf Historytonsillectomy and ovhmxagvamsmm4774Qvjassbu Historyc-section x2 Hospitalization HistorySEE SURGICAL HX [employer] Other Reason for referral (narrative)No reason for referral information availableM[facility]itrick [facility] Work Phone: Summary Purpose Family History Relationship Condition Age at Onset Recorded Date/T govind father Heart disease Unknown DeceasedUnknownmotherMalignant neoplasmUnknown Advance Directives Advance Directive Response Recorded Date/ Time Advance Directives No July 25 10:23am Reason for Referral Reason 03/20/22 Call Mina Shelton [phone] - Christina can't talk at all! Diagnosis 1 Laryngitis (J04.0) Referral Organization [facility] wallace Referring Provider First Name Rachele Referring Provider Last Name Jazmyn Referring Provider Specialty Family [facility] [place] Referred Organization [facility] Referred Provider Gino Sheth Referred Address ,[place], [place],[address] Referred Provider Specialty Otolaryngolo gy Referral Priority Routine Referral Appointment Date 2022-03-20 General Notes Steffany Moraes 10:46:08 AM >received today, CALL MINA TO SCHEDULE!! Steffany Moraes 03/19/2022 10:47:47 AM >notes locked, ins card attached, referral faxed P2P Ramiro Moraesya 03/26/2022 09:34:04 AM >faxed first attempt letter Steffany Moraes 04/02/2022 03:16:41 PM >pt seen on 03/20 and 04/01. 03/20 note in chart and reviewed out. closing referral at this time Chief Complaint and Reason for Visit Chief Complaint J38.3 Chief Complaint wellness OP SP BILAT KNEE PAIN/ RT HIP PAIN M17.0 - Bilateral primary osteoarthritis of knee MReason for VisitAbnormal mammogram Hypothyroid Osteoarthritis of knees, bilateral Wellness examination Body mass index [BMI] 39.0-39.9, adult Greater trochanteric bursitis Osteoarthritis of knees, bilateral Other obesity due to excess calories Chief Complaint Admit Date R92.8 May 07, 2024 8:1 3am Chief Complaint Admit Date Wellness December 24, 2024 1 1:15am Reason for Visit Admit Date Colon cancer screening December 24 11:15am Hypothyroid December 24, 2024 1 1:15am Screening mammogram for breast cancer O[place] tober 2024 11:15am Wellness examination December 24, 2024 11:15am Additional Source Comments REASON FOR VISIT (unrecogniz ed section and content) Bilateral Knee PainSickmessa gediscussion about her voiceREFILLRefillInhalerHigh BPbpsrefillrefillthyroid labs INFORMATION SOURCE (unrecogn ized section and content) DATE CREATED AUTHOR 09/27/2021 [facility] DATE CREATED AUTHOR 'S ORGANIZ ATION 05/11/2024 [facility] Care Teams (unrecognized sec tion and [...] Start: October 15, 2023 End: October 15, 2023Jufavian Colbert , DOActiveStart: October 15, 2023 End: October 15, 2023Noemi Madonna Criss HEAD STOCK TRANSFER CLERK-CAttending ProviderActiveStart: October 15, 2023 End: October 15, 2023 Team Status: Inactive Member Role Status Dates Rachele Eldridge MD Primary Care Provider Active Start: October 15, 2023 End: October 15, 2023JuKarime Olivaresending ProviderActiveStart: October 15, 2023 End: October 15, 2023 Team Status: Inactive Member Role Status Dates Rachele Eldridge MD Primary Care Provider Active Mariela Argueta ProviderActive Team Status: Active Member Role/Relationship Status Dates Rachele Eldridge MD Primary Care Provider Active Team Status: Inactive Member Role/Relationship Status Dates Rachele Eldridge MD Primary Care Provider Active Start: December 24, 2024 End: December 24, 2024Efrain Le ProviderActiveStart: December 24, 2024 End: December 24, 2024 Goals (unrecognized section and content) Goals may [...] BE BASED ON THE PRIMARY CLINICAL RECORDS. [facility] [employer] [facility]. provides no warranty or guarantee of the accuracy or completeness of information in this document.
== END 2024-12-27 08:44 | disposition home or self-care (01) ==
LOC: LAB 08:45
PROVIDERS: PCP Family Medicine; Visit Provider Family Medicine
DX: Z00.00 Encounter for general adult medical examination without abnormal findings (principal); E03.9 Hypothyroidism, unspecified
CPT/HCPCS: 36415; 80053; 80061; 84439; 84443; 85025

== ENCOUNTER 2025-01-07 09:14 | Outpatient (OUT) | payer OTHER, SELFPAY ==
--- OUTSIDE RECORDS SUMMARY | 2024-12-24 07:13 | XMS_ITS | Continuity of Care Document ---
Author Organization [facility] Address [address] [place] [address] Phone Care Team Providers Care Stretcher Helper Name Role Phone Rachele Payton MD Primary Care Provider Rachele Payton MD Attending Provider Care Teams Patient Care Team Team Status: Active Member Role/Relationship Status Dates Rachele Payton MD Primary Care Provider Active Patient Care Team Team Status: Inactive Member Role/Relationship Status Dates Rachele Payton MD Primary Care Provider Active Start: December 24, 2024 End: December 24, 2024Rachele Payton MDAttending ProviderActiveStart: December 24, 2024 End: December 24, 2024 Chief Complaint and Reason for Visit Chief Complaint Admit Date Wellness December 24, 2024 1 1:15am Reason for Visit Admit Date Colon cancer screening December 24 11:15am Hypothyroid December 24, 2024 1 1:15am Screening mammogram for breast cancer Oc tober 2024 11:15am Wellness examination December 24, 2024 11:15am Allergies, Adverse Reactions, Alerts Allergen Type Severity Reaction Last Updated Verified Status triamcinolone Allergy Unknown Hives December 24, 2024 11:39am Yes Active Social History Smoking Status Status Start Date End Date Date of Observa tion Never smoked tobacco (finding) December 24, 2024 11:41am Observation Status Observation Response Date of Response Legal Sex Female (finding) Sex Assigned At BirthFemaleJanuary 1965 Family History Relationship Condition Age at Onset Recorded Date/T govind father Heart disease Unknown DeceasedUnknownmotherMalignant neoplasmUnknownDeceasedUnknown Problems Active Problems Problem Diagnosis/Recorded Date Onset Date Stat us Greater trochanteric bursitis October 15, 2023 9:19am Unknown Active Body mass index [BMI] 39.0-39.9, adult October 12 7:48am Unknown Active Colon cancer screening December 24, 2024 12:11pm Unkn own Active Other obesity due to excess calories October 13, 2023 7:48am Unknown Active Screening mammogram for breast cancer December 24 12:05pm Unknown Active Osteoarthritis of knees, bilateral September 26, 2023 10 :14am Unknown Active Wellness examination September 18, 2023 8:49am Unknown Active Hypothyroid September 18, 2023 8:50am Unknown Activ e Bilateral knee pain November 06, 2023 1:12pm Unknow n Active Abnormal mammogram September 22, 2023 4:22pm Unknown Active Medications Medication Status Dose Units Route Directions Qty Days Refills S tart Date Stop Date End Date Reason(s) Instructions Adherence Levothyroxine 75 mcg tablet Discontinued 0 .ROUTE.NEKWWHZ112Waafk 2023 10:07amJune 2023 12:50pmTAKE 1 TABLET BY MOUTH EVERY DAY IN THE MORNING ON EMPTY STOMACH FOR 90 DAYSLevothyroxine 75 mcg tabletDiscontinued0.ROUTE.VFQAMFQ943Batj 2023 12:50pmAugust 2023 2:38pmTAKE 1 TABLET BY MOUTH EVERY DAY IN THE MORNING ON EMPTY STOMACH FOR 90 DAYSDiclofenac Sodium 75 mg tablet,delayed release (DR/EC)Active0.ROUTE.COMPLEX 1803April 2024 7:16amTAKE 1 TABLET TWICE A DAYComplies with drug therapy Levothyroxine 75 mcg tabletActive0.ROUTE.XCXGIYV113Dzylw 2024 3:27pmTAKE 1 TABLET BY MOUTH EVERY DAY IN THE MORNING ON EMPTY STOMACH FOR 90 DAYSComplies with drug therapyLevothyroxine (Synthroid) 75 mcg ktcjydZmvqnhvywzgu44LWQHBFlezh May 12, 2023 12:00amMarch 2023 10:07amAlbuterol Sulfate 90 mcg/actuation HFA aerosol hbkfdzhWpvrpymdtsgk0TWZKQFXCSZDDBFBcbvg 4 hoursMarch 2023 12:00amOctober 2024 11:39amMeloxicam 15 mg hwfawlZaszahhsabmh83 MGPO.PRNMarch 2023 12:00amOctober 2024 11:39amFamotidine (Pepcid Ac) 20 mg saygkjIeeozm83VBCEMacxf at bedtimeAugust 2023 12:00amComplies with drug therapyLevothyroxine 75 mcg tabletDiscontinued0.ROUTE.GWYREYT046Mfdxjr2023 2:37pmApril 2024 3:27pmTAKE 1 TABLET BY MOUTH EVERY DAY IN THE MORNING ON EMPTY STOMACH FOR 90 DAYSDiclofenac Sodium 75 mg tablet,delayed release (DR/EC)Pzhdvuxfcozn15HKDNRudrp afwpk867219Mktcil2023 12:00amApril 2024 7:16am Immunizations Immunization Event Date Not Given Reason Dose Number Plug Saw Operator Lot Number Reason(s) Given Vaccine Information Statement (VIS) Detail Administration Location DTap, unspecified July 08, 2016 [facility], [facility] 2015influ[facility], unspecified [facility] 2017Tetanus, Diphtheria adult, 5 [facility] 2016 Vital Signs Vital Reading Result Reference Range Collection Date/Time Height 67 [in_i] December 24, 2024 11:72crBdkiwn965.28 kgOctpikeville medical center 2024 11:38amHeart Rate84 /ael41-156Uhzrlik 2024 11:38amBP Rdajyqyp747 mm[Hg]100-140[facility] 2024 11:38amBP Rnmqxqazb08 mm[Hg]60-100[facility] 2024 11:38amBMI (Body Mass Index)42.9 kg/y5Wwgdbbj 2024 11:38am Advance Directives Advance Directive Response Recorded Date/ Time Advance Directives No July 25 10:23am Insurance Providers Guarantor Olivier Gomez Address [address] [place] [address] [place] [address]Qgsdtcm Info.Home Phone: Coverage Status Update:2024 Payer Group Member ID Coverage Type Subscriber Relationship to Subscriber Effective Date Expiration Date MMO Id: [id number] Sheyla Id: [id number] [place] [address] Home Phone: Email: [email or web address] Encounters Encounter Location(s) Arrival/Admit Date Discharge/Departure Date Discharge/Departure Disposition Provider(s) Departed Physician/ Provider Office Visit -[facility] December 24, 2024 11:15am December 24, 2024 12:12pm Discharged to home care or self care (routine discharge) Rachele Payton MD Recent Diagnosis Onset Date Admit Date Colon cancer screening Unknown November 262024 11:15am Hypothyroid Unknown December 24 11:15am Screening mammogram for breast cancer Unknown December 24, 2024 11:15am Wellness examination Unknown November 11:15am Assessments Diagnosis Onset Date Resolution Status Admit Date Colon cancer screening acuteOctober 2024 11:15amHypothyroidacuteOctober 2024 11:15am Screening mammogram for breast canceracuteOctober 2024 11:15amWellness examinationacuteOctober 2024 11:15am Plan of Treatment Future Tests Future scheduled test information is unavailable Pending Tests Test Name Ordered Date Scheduled Date Comprehensive Metabolic Panel December 24, 2024 12:00pm MM screening mammo BI w/CADOctober 2024 12:04pm Future Visits Future appointment information is unavailable Future Procedures Procedure Name Ordered Date Scheduled Date Complete Blood Count Auto Diff December 24 12:00pm Lipid PanelOctober 2024 12:00pmFree T4 (Free Thyroxine)December 24, 2024 12:00pmThyroid Stim Hormone w/RflxOctober 2024 12:00pmAMB CologuardOctober 2024 12:09pm Future Medications Future medication information is unavailable Patient Instructions Patient instructions are unavailable
--- OUTSIDE RECORDS SUMMARY | 2025-01-07 09:17 | XMS_ITS | Clinical Summary ---
Author Organization [facility] Address [address] [place] [address] Care Team Providers Care Autism Teacher Name Role Phone Unavailable Primary Care Provider Unavailabl e Social History Tobacco UseTypesPacks/DayYears UsedDateSmoking Tobacco: Never Assessed CommentsUnknownSex and Gender InformationValueDate RecordedSex Assigned at Not on fileLegal MspEryzjm04/15/2023 6:48 PM EDTGender IdentityNot on fileSexual OrientationNot on file Last Filed Vital Signs Vital SignReadingTime TakenCommentsBlood Pressure--Pulse--Temperature-- Respiratory Rate--Oxygen Saturation--Inhaled Oxygen Concentration--Nwapnz680 kg (250 lb)04/01/2022 12:00 PM CYYBglrdk193.2 cm (5' 7 )04/01/2022 12:00 PM ESTBody Mass Index39.16004/01/2022 12:00 PM EST Plan of Treatment Not on file Insurance * Guarantor: Christina Carrion TypeRelation to PatientDate of BirthPhone Billing AddressPersonal/LltxtjArei29/12/1966 [address] [place] [address]
--- NOTE | 2025-01-07 09:45 | MM_ITS ---
Patient Name: NANI ALEX MR#: [id number] : 1965 Exam Date: 01/07/2025 Ordering Doctor: DR ESTEVAN ELDRIDGE M.D. RADIOLOGY REPORT PROCEDURE: MM TOMOSYNTHESIS SCREENING BI COMPARISON: MM TOMOSYNTHESIS DIAGNOSTIC LT, 05/07/2024. MM DIAGNOSTIC MAMMO UNILAT LT, 10/03/2023. MM TOMOSYNTHESIS SCREENING BI, 09/18/2023. MM TOMOSYNTHESIS SCREENING BI, 09/16/2022. INDICATIONS: Screening Calculator Name NCI Breast Cancer Risk Assessment Tool 5 Year Breast Cancer Risk 3.10% Lifetime Breast Cancer Risk 14.40% Personal Breast Cancer No Personal Ovarian Cancer No Treatments None Family Cancers Niece with breast cancer at age 22; Mother with breast cancer at age 55; Niece with breast cancer at age 33; Grandmother-maternal with breast cancer at age 30; Aunt-maternal with breast cancer at age 40; Mother with ovarian cancer at age 68; Mother with kidney cancer at age 48. LOCATION: [facility] BREAST COMPOSITION: There are scattered areas of fibroglandular density. FINDINGS: RIGHT BREAST: No significant suspicious finding. Similar focal asymmetries are present. Benign-appearing lymph nodes are noted along the chest wall. LEFT BREAST: No significant suspicious finding. Benign-appearing calcifications are present. Similar focal asymmetries are present . DIAGNOSTIC CATEGORY 2--BENIGN FINDING. NO CHANGE FROM COMPARISON. RECOMMENDATIONS: ROUTINE MAMMOGRAM AND CLINICAL EVALUATION IN 12 MONTHS. Dictated by: Soy Bryant MD on 01/07/2025 at 16:01 Approved by: Soy Bryant MD on 01/07/2025 at 16:03
== END 2025-01-07 09:15 | disposition home or self-care (01) ==
LOC: MAMMO 09:14
PROVIDERS: PCP Family Medicine; Visit Provider Family Medicine
DX: Z12.31 Encounter for screening mammogram for malignant neoplasm of breast (principal); Z80.3 Family history of malignant neoplasm of breast; Z80.41 Family history of malignant neoplasm of ovary; Z80.51 Family history of malignant neoplasm of kidney
CPT/HCPCS: 77063; 77067